=== PATIENT | male | born 1975 | race Caucasian/White ===

== ENCOUNTER 2024-02-19 14:15 | Emergency (ER) | payer MEDICAID, SELFPAY ==
[2024-02-19 14:18] VITALS: BP 155/90; PULSE 65; RESP 16; TEMP 36.5; O2SAT 99
--- NOTE | 2024-02-19 14:29 | ED.GENADUL_ITS ---
Discharge Plan Disposition Patient Disposition: Home Condition: Good Discharge Details Chief Complaint: RX Refill Clinical Impression: Methadone use Primary Care Provider: None,None ED Provider: Aroldo Roblero Home Meds and New Rx's Prescriptions: No Action methadone 10 MG/ML concentrate 190 mg PO DAILY Patient Comments: Pt states he takes 190 mg daily 02/19/24 gabapentin 600 MG tablet 1,200 mg PO TID sertraline 100 MG tablet 200 mg PO DAILY clonidine HCl [Catapres] 0.2 MG tablet 0.2 mg PO TID clindamycin HCl 300 MG capsule 300 mg PO QID 10 Days 0RF methylphenidate HCl [Concerta] 36 MG tablet extended release 24hr 2 tab PO DAILY buprenorphine-naloxone [Suboxone] 1 EACH film 16 mg PO DAILY Discharge Instructions Instructions: Methadone Additional Instructions: Please follow-up with your clinic for your continued methadone dosing. If you notice any worsening of your symptoms, or any new symptoms such as vomiting, diarrhea, fever, chills, shortness of breath, chest pain, numbness, weakness, or fainting , please return immediately to the emergency department for reevaluati on. Please follow up with your primary care provider as soon as possible for reassessment and reevaluation. As always, it was a pleasure participating in your medical care today. HPI General Date/Time Provider Initiated Documentation: 02/19/24 14:24 . HPI Narrative: 48-year-old male with past medical history of substance abuse, hepatitis C, who is currently 50 days in remission on methadone 190 mg daily, presents today for evaluation of dosing. Unfortunately he has been traveling and was not able to come in for his dose today. We are contacted by the methadone clinic and they requested that we provide him the opportunity to dose today. They did confirm his dose for 190 mg. Patient denies any other complaints. He states that he has not been using. No other modifying factors. Related Data Home Medications ?Medication ?Instructions ?Recorded ?Confirmed methadone 10 mg/mL oral concentrate 190 mg PO DAILY 11/11/14 02/19/24 clindamycin HCl 300 mg capsule 300 mg PO QID 10 days 07/18/16 02/19/24 clonidine HCl 0.2 mg tablet 0.2 mg PO TID 07/18/16 02/19/24 (Catapres) gabapentin 600 mg tablet 1,200 mg PO TID 07/18/16 02/19/24 sertraline 100 mg tablet 200 mg PO DAILY 07/18/16 02/19/24 buprenorphine 8 mg-naloxone 2 mg 16 mg PO DAILY 01/16/17 02/19/24 sublingual film (Suboxone) methylphenidate HCl 36 mg 2 tab PO DAILY 01/16/17 02/19/24 tablet,extended release 24 hr (Concerta) Previous Rx's ?Medication ?Instructions ?Recorded clindamycin HCl 300 mg capsule 300 mg PO QID 10 days 07/18/16 Allergies Allergy/AdvReac Type Severity Reaction Status Date / Time No Known Allergies Allergy Unverified 02/19/24 14:21 General Stated Complaint: RX Refill SHAUNA: 4 Review of Systems All systems reviewed & are unremarkable except as noted in HPI and below Exam Narrative Exam Narrative: 1.Const: Well-nourished, Well-developed, appearing stated age 2.Eyes: PERRL, no conjunctival injection, and symmetrical lids. 3.ENT: Atraumatic external nose and ears. Moist MM. Neck: Symmetric, trachea midline, No thyromegaly. 4.CVS: +S1/S2, Peripheral pulses 2+ and equal in all extremities. Brisk capillary refill in all extremities. 5.RESP: Unlabored respiratory effort. Clear to auscultation bilaterally. No wheezes rales or rhonchi 6.GI: Soft, Nontender/Nondistended, No hepatosplenomegaly. No guarding or rebound. 7.MSK: Normocephalic/Atraumatic, Extremities w/o deformity or ttp No cyanosis or clubbing, Normal movement of all extremities 8.Skin: Warm, Dry. No rashes or lesions. 9.Neuro: tube room cashier II-XII grossly intact. Sensation grossly intact, no focal neurologic deficits. 10.Psych: (AAO) x3. Appropriate mood and affect Course Vital Signs Vital signs: Vital Signs Temperature 36.5 C 02/19/24 14:18 Pulse 65 02/19/24 14:18 Respiratory Rate 16 02/19/24 14:18 Blood Pressure 155/90 H 02/19/24 14:18 Pulse Oximetry 99 02/19/24 14:18 Temperature 36.5 C 02/19/24 14:18 Temperature Source Oral 02/19/24 14:18 Pulse 65 02/19/24 14:18 Respiratory Rate 16 02/19/24 14:18 Respiratory Effort Normal, Non-Labored 02/19/24 14:21 Blood Pressure 155/90 H 02/19/24 14:18 Blood Pressure Position Sitting 02/19/24 14:18 Pulse Oximetry 99 02/19/24 14:18 Oxygen Delivery Method Room Air 02/19/24 14:18 Oxygen Flow Rate 0 02/19/24 14:18 Pain Level 0 02/19/24 14:18 Medical Decision Making 48-year-old male with past medical history of substance abuse, hepatitis C, who is currently 50 days in remission on methadone 190 mg daily, presents today for evaluation of dosing. Unfortunately he has been traveling and was not able to come in for his dose today. We are contacted by the methadone clinic and they requested that we provide him the opportunity to dose today. They did confirm his dose for 190 mg. Patient denies any other complaints. He states that he has not been using. No other modifying factors. Patient appears well, physical exam demonstrates a stable appearing male. Will give his methadone dose. Recommend continued outpatient follow-up. I have extensively reviewed the treatment plan and discharge instructions with the patient. I have addressed all patient concerns at this time. The patient was made aware of what symptoms to monitor for that would warrant a return to the emergency department. Discussed the plan with the patient, they demonstrate verbal understanding and agreement with our assessment and plan at this time. The documentation in this chart was dictated using [employer] dictation software. Please excuse any dictation errors. Quality:SDOH Health Related Social Needs: No Data to Display PFSH All Active Problems (Updated 02/19/24 @ 14:33 by Aroldo Roblero DO) Methadone use (Acute) Smoker (Chronic) Restless leg syndrome (Chronic) Urinary retention (Chronic) ADD (attention deficit disorder) (Chronic) Hepatitis C (Chronic) Polydrug abuse, continuous (Acute 07/22/14) Family History Mother Essential hypertension Father No problems noted. Brother Diabetes Essential hypertension Social History Smoking/Tobacco Use Status: Current every day Smoking risk assessment performed?: Yes Alcohol Intake: never Drug use: Daily Substance use type: does not use Do you feel safe at home: Yes Do you feel safe in your relationship?: Yes
[2024-02-19] MEDS: Methadone Liquid 10 MG/ML 190 MG PO (14:44)
--- OUTSIDE RECORDS SUMMARY | 2024-02-19 14:48 | XMS_ITS | Encounter Summary ---
[place] [address] Care Team Providers Care Scale Technician Name Role Phone Jenifer Velásquez APRN Primary Care Provider Encounter Details Date Type Department Care Team (Late st Contact Info) Description 11/25/2014 [place] [phone] Jenifer Velásquez APRN [address] [place], [place] [id number] Social History Tobacco Use Types Packs/Day Years Used Date Smoking Tobacco: Never Assessed Sex and Gender Information Value Date Recorded Sex Assigned at Not on file Gender Identity Not on file Sexual Orientation Not on file documented as of this encounter Plan of Treatment Not on file documented as of this encounter Procedures Procedure Name Priority Date/Time Associated Diagnosis Comments FILM LIBRARY STORAGE ONLY MR SPINE Routine 11/25/2014 2:44 PM EDT documented in this encounter Results * Film Library- Storage only MR Spine (11/25/2014 2:44 PM EDT) Anatomical Region Laterality Modality Other 11/25/2014 2:44 PM EDT Narrative 11/25/2014 2:49 PM EDT This is a Non-reportable exam Procedure Note IVAN, UNSIGNED REPORT - 11/25/2014 This is a Non-reportable exam Jenifer Velásquez APRN [facility] FILM LIBRARY ORD ERABLES documented in this encounter Visit Diagnoses Not on filedocumented in this encounter Care Teams Scale Technician Relationship Specialty Start Date End Date Jenifer Velásquez APRN PCP - General 02/09/10 12/07/16 documented as of this encounter
--- OUTSIDE RECORDS SUMMARY | 2024-02-19 14:48 | XMS_ITS | Encounter Summary ---
Author Organization [facility] Address [facility] [place] [address] Care Team Providers Care Snapper On Name Role Phone Unknown Primary Care Provider Unavailabl e Encounter Details Date Type Department Care Team (Late st Contact Info) Description 10/25/2023 11:30 AM EDT Ancillary Procedure Radiology Library at [facility] [place] [phone] Filiberto Grider MD [facility] [place] [address] Social History Tobacco Use Types Packs/Day Years Used Date Smoking Tobacco: Every Day Cigarettes 1 30 Smokeless Tobacco: Current Chew Alcohol Use Standard Drinks/Week Comments Yes 2 (1 standard drink = 0.6 oz pur e alcohol) Sex and Gender Information Value Date Recorded Sex Assigned at Not on file Gender Identity Not on file Sexual Orientation Not on file documented as of this encounter Plan of Treatment Not on file documented as of this encounter Procedures Procedure Name Priority Date/Time Associated Diagnosis Comments FILM LIBRARY STORAGE ONLY CT SPINE Routine 10/25/2023 11:26 AM EDT documented in this encounter Results * Film Library- Storage Only CT Spine (10/25/2023 11:26 AM EDT) 10/25/2023 11:2 5 AM EDT Narrative RAD - 10/25/2023 11:26 AM EDT This exam is auto-finalizing. It's purpose is for storage only. De Los Santos A Echt MD IMG FILM LIBRARY ORD ERABLES [place], [place] documented in this encounter Visit Diagnoses Not on filedocumented in this encounter Care Teams Snapper On Relationship Specialty Start Date End Date Unknown None PCP - General 09/22/20 documented as of this encounter
--- OUTSIDE RECORDS SUMMARY | 2024-02-19 14:48 | XMS_ITS | Encounter Summary ---
Author Organization [facility] Address [facility] [place] [address] Care Team Providers Care Human Performance Consultant Name Role Phone Aguila Patton Primary Care Provider [phone] Encounter Details Date Type Department Care Team (Late st Contact Info) Description 02/27/2017 Telephone [place] [phone] Sonam Esqueda, RN [facility] [place] [address] Social History Tobacco Use Types Packs/Day Years [...] on file documented as of this encounter Miscellaneous Notes * Telephone Encounter - Sonam Esqueda, RN - 02/27/2017 4:17 PM EST Phone call to Mr. Li to discuss issues related to his appt with Dr. Riley next week for eval of HCV infection. [facility] Will [facility] upcoming appt. (03/06-- Dr. Riley and [facility]) Left message with her to have him call when he is settled back at home and we will work on getting him scheduled. documented in this encounter Plan of Treatment Not on file documented as of this encounter Visit Diagnoses Not on filedocumented in this encounter Care Teams Human Performance Consultant Relationship Specialty Start Date End Date Aguila Patton PA [address] [place] [address] PCP - General General Internal Medicine 12/08/1609/21 documented as of this encounter
--- OUTSIDE RECORDS SUMMARY | 2024-02-19 14:48 | XMS_ITS | Encounter Summary ---
Author Organization [facility] Address [facility] [place] [address] Care Team Providers Care Rice Cleaning Machine Tender Name Role Phone Unknown Primary Care Provider Unavailabl e Encounter Details Date Type Department Care Team (Late st Contact Info) Description 10/25/2023 11:35 AM EDT Ancillary Procedure Radiology Library at [facility] [place] [phone] Filiberto Grider MD [facility] [place] [place] [address] Social History Tobacco Use Types Packs/Day Years [...] Diagnosis Comments FILM LIBRARY STORAGE ONLY CT PELVIS Routine 10/25/2023 11:26 AM EDT documented in this encounter Results * Film Library- Storage Only CT Pelvis (10/25/2023 11:26 AM EDT) 10/25/2023 11:2 6 AM EDT Narrative RAD - 10/25/2023 11:26 AM EDT This exam is auto-finalizing. It's purpose is for storage only. De Los Santos A Echt MD IMG FILM LIBRARY ORD ERABLES [place], [place] documented in this encounter Visit Diagnoses Not on filedocumented in this encounter Care Teams Rice Cleaning Machine Tender Relationship Specialty Start Date End Date Unknown None PCP - General 09/22/20 documented as of this encounter
--- OUTSIDE RECORDS SUMMARY | 2024-02-19 14:48 | XMS_ITS | Encounter Summary ---
Author Organization [facility] Address [facility] [place] [address] Care Team Providers Care Social Work Professor Name Role Phone Unknown Primary Care Provider Unavailabl e Encounter Details Date Type Department Care Team (Late st Contact Info) Description 10/25/2023 Interpretation Only Radiology Library at [facility] [place] [phone] Filiberto Grider MD [facility] [place] [address] Social History Tobacco Use Types Packs/Day Years [...] Spine (10/25/2023 11:26 AM EDT) 10/25/2023 11:2 6 AM EDT Narrative RAD - 10/25/2023 11:26 AM EDT This exam is auto-finalizing. It's purpose is for storage only. Filiberto Grider MD IMG FILM LIBRARY ORD ERABLES [place], [place] documented in this encounter Visit Diagnoses Not on filedocumented in this encounter Care Teams Social Work Professor Relationship Specialty Start Date End Date Unknown None PCP - General 09/22/20 documented as of this encounter
--- OUTSIDE RECORDS SUMMARY | 2024-02-19 14:48 | XMS_ITS | Referral Summary ---
Author Organization [facility] Address [address] [place] [address] Care Team Providers Care Magneto Repairer Name Role Phone Unknown, Provider Primary Care Provider Unava ilable Social History Tobacco Use Types Packs/Day Years Used Date Smoking Tobacco: Never Assessed Sex and Gender Information Value Date Recorded Sex Assigned at Not on file Legal Sex Male 18:09 EST Gender Identity Not on file Sexual Orientation Not on file Plan of Treatment Not on file Care Teams Magneto Repairer Relationship Specialty Start Date End Date Unknown, Provider, PCP - General 12/19/14
--- OUTSIDE RECORDS SUMMARY | 2024-02-19 14:48 | XMS_ITS | Encounter Summary ---
Author Organization [employer] Address [address] [place] [address] Care Team Providers Care Forest Botany Instructor Name Role Phone Per Patient, No Pcp MD Primary Care Provider Cathryn vailable Reason for Visit * Reason Comments Wound Infection Encounter Details Date Type Department Care Team (Late st Contact Info) Description 09/22/2023 6:13 PM CDT - 09/22/2023 7:17 PM CDT Emergency [address] [phone] Cellulitis of right leg (Primary Dx) Discharge Disposition: 10 Eloped Social History Tobacco Use Types Packs/Day Years Used Date Smoking Tobacco: Never Assessed Sex and Gender Information Value Date Recorded Sex Assigned at Not on file Gender Identity Not on file Sexual Orientation Not on file documented as of this encounter Last Filed Vital Signs Vital Sign Reading Time Taken Comments Blood Pressure 153/96 09/22/2023 2:21 PM CDT Pulse 113 09/22/2023 2:21 PM CDT Temperature 36.4 ??C (97.6 ??F) 09/22/2023 2:21 PM CD T Respiratory Rate 19 09/22/2023 2:21 PM CDT Oxygen Saturation 100% 09/22/2023 2:21 PM CDT Inhaled Oxygen Concentration - - Weight 79.4 kg (175 lb) 09/22/2023 2:21 PM CDT Height 185.4 cm (6' 1) 09/22/2023 2:21 PM CDT Body Mass Index 23.09 09/22/2023 2:21 PM CDT documented in this encounter ED Notes * Jenniffer Urbano - 09/22/2023 5:57 PM CDT Called 3 times for room assignment, no answer. UTL Jenniffer Urbano 09/22/23 1757 * Shana Villalta RN - 09/22/2023 2:29 PM CDT PT C/O R CALF WOUND INFECTION WHICH HAS BEEN GOING ON FOR SEVERAL WEEKS WELL AN ABNORMALITY IN HIS SPINE CAUSING HIM TO HAVE SOB WHICH HAS RECENTLY WORSENED documented in this encounter Miscellaneous Notes * ED PIT NOTE - Chuy Nesbitt PA-C - 09/22/2023 2:24 PM CDT Emergency Department Note 09/22/2023 2:24 PM CDT PCP: No primary care provider on file. Subjective History Nursing Notes Stated Complaint: SOB/open wound Chief Complaint: SOB/open wound Reviewed Nursing Documentation: Yes Coded Allergies: Patient has no known allergies. General Time Seen by Provider: 1425 MSE Initiation Time: 1425 I have greeted and performed a focused rapid initial assessment of this patient. Patient examined by provider in triage, appropriate labs/imaging (if indicated) and medications (ifindicated) have been ordered from triage. A comprehensive ED assessment and evaluation of the patient, analysis of all test results, and completion of the medical decision-making process will be conducted by additional ED providers and disposition once roomed in ER bed. 47-year-old male presents for evaluation of shortness of breath. Patient reports he has a lump on his back ongoing for four months but has worsened. He reports he was seen twice here for this same issue. Patient also has an open wound located on on the right calf. Reports he is an active heroin user. The history is provided by the patient. No segmental paving supervisor was used. Patient is awake, alert, oriented x3, in no distress. Non toxic appearing. Head: Atraumatic, normocephalic, Pulmonary: No acute respiratory distress, airway patent. Lung mello clear to auscultation. Musculoskeletal: Noted thoracic spine abnormality. Skin: Wound noted to right calf region MSE complete; Work-up in progress; Patient requires acute bed. Clinical course pending. No past medical history on file. No past surgical history on file. No family history on file. Social History Socioeconomic History Marital status: Single Prior to Admission medications Not on File ED Triage Vitals [09/22/23 1421] Enc Vitals Group BP Pulse Resp Temp Temp src SpO2 Weight 79.4 kg (175 lb) Height 1.854 m (6' 1) Head Circumference Peak Flow Pain Score Pain Loc Pain Edu? Excl. in GC? ED Course I, Gregoria Raines, medically scribed in the presence of Chuy YORK. This document has been reviewed. This documentation, recorded by the scribe, accurately reflects the work and decisions I personally performed, JAYLEN Rain. MSE completed at D/T. Chuy Nesbitt PA-C 09/22/2023 This note was dictated with the use of [employer] software and is subject to voice recognition errors. Message for Patient/Family: These medical records are being shared as per [facility] regulations to improve transparency and understanding. However, these notes have medical terminology and technical language to communicate with otherproviders, insurance companies, and the billing department. Associated attestation - Maritza Alexander DO - 09/23/2023 7:47 AM CDT If I was consulted on this patient, please see my own separate ED note on the patient encounter. I am required to administratively sign this document. I was available for consultation for this patient if they were present in the ED during the hours of my scheduled shift, however I was not consulted on this patient. I was not made aware of this patient's presence in the Emergency Department during my shift. I did not evaluate the patient, did not have a doctor-patient relationship with the patient, did not perform any critical care, did not review the patient record & documentation, or participate in any medical decision making or disposition decisions unless I am specifically named in the chart as having consulted on the patient. The KYLEE functioned independently in this patient's ca re. I am unable to determine appropriateness of management without obtaining a personal history andexam which I was not asked to do. documented in this encounter Plan of Treatment Not on file documented as of this encounter Procedures Procedure Name Priority Date/Time Associated Diagnosis Comments XR CHEST XRAY 1 VW STAT 09/22/2023 3: 43 PM CDT XR THORACIC SPINE 3 VIEWS STAT 09/22/2023 3:43 PM CDT COMPLETE BLOOD COUNT WITH DIFFERENTIAL STAT 09/22/2023 2:41 PM CDT BASIC METABOLIC PANEL STAT 09/22/2023 2:41 PM CDT documented in this encounter Results * X-ray t spine 3 views (09/22/2023 3:43 PM CDT) Anatomical Region Laterality Modality C-spine, T-spine, L-spine, Chest Digital Radiography Impressions 09/22/2023 4:29 PM CDT T11 fracture with significant kyphotic angulation of the thoracolumbar spine. Electronically signed by: ??Eric Arechiga MD ??09/22/2023 04:29 PM CDT RP [facility] 09/22/2023 4:29 PM CDT EXAMINATION: XR THORACIC SPINE 3 VIEWS CLINICAL INDICATION: Male, 47 years old. Worsening upper back pain. COMPARISON: XR Chest 09/22/2023, XR Chest 11/12/2022. FINDINGS: Thoracic : 3 views. Osseous Structures: Significant kyphotic angulation of the thoracic spine secondary to a compression fracture with near vertebral plana at the T11 level, uncertain chronicity. Lower cervical ACDF hardware. Bone Mineralization: Osteopenia. Soft Tissues: Normal appearance of the visualized cardiac silhouette. Procedure Note Eric Arechiga MD - 09/22/2023 EXAMINATION: XR THORACIC SPINE 3 VIEWS CLINICAL INDICATION: Male, 47 years old. Worsening upper back pain. COMPARISON: XR Chest 09/22/2023, XR Chest 11/12/2022. FINDINGS: Thoracic : 3 views. Osseous Structures: Significant kyphotic angulation of the thoracic spinesecondary to a compression fracture with near vertebral plana at the [id number], uncertain chronicity. Lower cervical ACDF hardware. Bone Mineralization: Osteopenia. Soft Tissues: Normal appearance of the visualized cardiac silhouette. IMPRESSION: T11 fracture with significant kyphotic angulation of the thoracolumbarspine. Electronically signed by: Eric Arechiga MD 09/22/2023 04:29 PM CDT RPWorkstation: [id number] Chuy Laz SMALL IMG DIAGNOSTIC IMAG ING ORDERABLES * XR Chest X-ray 1v (09/22/2023 3:43 PM CDT) Anatomical Region Laterality Modality Chest Digital Radiogra phy BODY FLUID SPECIMEN OBTAINED VIA CHEST TUBE / Unknown Impressions 09/22/2023 3:51 PM CDT No acute infiltrate. Findings suspicious for a 13 mm nodule at the right midlung. CT scan is suggested for further evaluation. Electronically signed by: ??Peter Allen MD ??09/22/2023 03:51 PM CDT RP Narrative 09/22/2023 3:51 PM CDT EXAMINATION: ONE VIEW CHEST XR CLINICAL INDICATION: Male, 47 years old. short of breath. TECHNIQUE: 1 View, AP supine, X-ray of the chest was performed. [id number]. COMPARISON: November 12, 2022 FINDINGS: The cardiac size is within normal limits. The left lung is free of infiltrate and well aerated. The right lung, there is a 13 mm nodule which was not present on the prior examination. CT scan of the chest is suggested for further evaluation. Procedure Note Peter Allen MD - 09/22/2023 EXAMINATION: ONE VIEW CHEST XR CLINICAL INDICATION: Male, 47 years old. short of breath. TECHNIQUE: 1 View, AP supine, X-ray of the chest was performed.[id number]. COMPARISON: November 12, 2022 FINDINGS: The cardiac size is within normal limits. The left lung is free of infiltrate and well aerated. The right lung, there is a 13 mm nodule which was not present on the priorexamination. CT scan of the chest is suggested for further evaluation. IMPRESSION: No acute infiltrate. Findings suspicious for a 13 mm nodule at the right midlung. CT scan issuggested for further evaluation. Electronically signed by: Peter Allen MD 09/22/2023 03:51 PM CDT RPWorkstation: [id number] Chuy Nesbitt PA-C IMG DIAGNOSTIC IMAG ING ORDERABLES * (ABNORMAL) Basic Metabolic Panel (09/22/2023 2:41 PM CDT) Glucose 98 70 - 105 mg/dL 09/22/2023 3:20 PM CDT [facility] BUN 27(H) 9 - 21 mg/dL 09/22/2023 3:20 PM T [facility] Creatinine 1.10 0.70 - 1.30 mg/dL 09/22/2023 3:20 PM T [facility] Est Glomerular Filtration Rate 82.81 >=60.00 mL/min/1.7 3m2 09/22/2023 3:20 PM T [facility] Comment: An Estimated GFR result less than or equal to 60 mL/min/1.73 sqm is indicative of renal disease. Effective 11/16/2021 eGFR CKD-EP is now calculated using the [employer] recommended 2020 calculation which no longer includes a race dependency. EGFR calculation is based on sex assigned at . If unavailable, legal sex is used. Please consider patient history for clinical decision making. Sodium 141 136 - 145 mmol/L 09/22/2023 3:20 PM T [facility] Potassium 3.1(L) 3.5 - 5.1 mmol/L 09/22/2023 3:20 PM [facility] Chloride 103 98 - 107 mmol/L 09/22/2023 3:20 PM [facility] Carbon Dioxide 26 22 - 29 mmol/L 09/22/2023 3:20 PM [facility] Anion Gap 12 6 - 18 mmol/L 09/22/2023 3:20 PM [facility] BUN/Creatinine Ratio 25 mg/dL 09/22/2023 3:20 PM CDT [facility] Calcium 9.6 8.4 - 10.2 mg/dL 09/22/2023 3:20 PM CDT [facility] Blood VENOUS BLOOD SPECIMEN / Unknown Venipuncture / Unknown 09/22/2023 2:41 PM CDT 09/22/2023 2:41 PM CDT Chuy Nesbitt PA-C LAB BLOOD ORDERABLE S [facility] [address] [place] [address] * (ABNORMAL) Complete Blood Count with Differential (09/22/2023 2:41 PM CDT) WBC 10.0 4.8 - 10.8 10*3/uL 09/22/2023 2:44 PM CDT [facility] Red Cell Count 4.49(L) 4.70 - 6.10 10*6/uL 09/22/2023 2:44 PM CDT [facility] Hemoglobin 10.7(L) 14.0 - 18.0 g/dL 09/22/2023 2:44 PM T [facility] Hematocrit 36.0(L) 42.0 - 52.0 % 09/22/2023 2:44 PM CDT [facility] Mean Corpuscular Hgb 23.8(L) 26.0 - 34.0 pg 09/22/2023 2:44 PM CDT [facility] Mean Corpuscular Hgb Conc 29.7(L) 31.0 - 37.0 g/dL 09/22/2023 2:44 PM CDT [facility] Red Cell Distribution Width 17.2(H) 11.2 - 13.4 % 09/22/2023 2:44 PM CDT [facility] Platelet Count 405(H) 130 - 400 10*3/uL 09/22/2023 2:44 PM [facility] Mean Platelet Volume 8.1 7.4 - 10.4 fL 09/22/2023 2:44 PM [facility] Neutrophils Absolute 7.11 1.90 - 8.00 10*3/uL 09/22/2023 2:44 PM [facility] Lymphocytes # 1.91 0.90 - 4.50 10*3/uL 09/22/2023 2:44 PM [facility] Monocytes # 0.76 0.15 - 1.10 10*3/uL 09/22/2023 2:44 PM [facility] Neutrophils % 71.0 40.0 - 78.0 % 09/22/2023 2:44 PM [facility] Immature Granulocyte % 0.3 0.0 - 5.0 % 09/22/2023 2:44 PM [facility] Lymphocytes % 19.1 15.0 - 48.0 % 09/22/2023 2:44 PM [facility] Monocytes % 7.6 0.0 - 12.0 % 09/22/2023 2:44 PM [facility] Eosinophils % 1.3 0.0 - 7.0 % 09/22/2023 2:44 PM [facility] Basophils % 0.7 0.0 - 3.0 % 09/22/2023 2:44 PM [facility] Nucleated RBC % 0.0 0.0 - 0.0 % 09/22/2023 2:44 PM [facility] Immature Granulocyte # 0.03 0.00 - 0.40 10*3/uL 09/22/2023 2:44 PM [facility] Eosinophils # 0.13 0.00 - 1.01 10*3/uL 09/22/2023 2:44 PM CDT [facility] Basophils # 0.07 0.00 - 0.30 10*3/uL 09/22/2023 2:44 PM CDT [facility] Nucleated RBC # 0.00 0.00 - 0.01 10*3/uL 09/22/2023 2:44 PM CDT [facility] Mean Corpuscular Volume 80.2 80.0 - 94.0 fL 09/22/2023 2:44 PM CDT [facility] Immature Plt Fraction 09/22/2023 2:44 PM CDT [facility] Blood VENOUS BLOOD SPECIMEN / Unknown Venipuncture / Unknown 09/22/2023 2:41 PM CDT 09/22/2023 2:41 PM CDT Chuy Nesbitt PA-C LAB BLOOD ORDERABLE S [facility] [address] [phone] documented in this encounter Visit Diagnoses Diagnosis Cellulitis of right leg- Primary documented in this encounter Additional Health Concerns Infection Onset Date Last Indicated Resolved Time ESBL (Extended Spectrum Beta-Lactamase) 11/16/2022 05/11/2023 09/25/2023 11:26 AM CDT documented as of this encounter Care Teams Forest Botany Instructor Relationship Specialty Start Date End Date Per Patient, No Pcp, MD PCP - General Family Medicine 09/22/23 documented as of this encounter
--- OUTSIDE RECORDS SUMMARY | 2024-02-19 14:48 | XMS_ITS | Encounter Summary ---
Author Organization [facility] Address [facility] [place] [address] Care Team Providers Care Conventions Assistant Name Role Phone Unknown Primary Care Provider Unavailabl e Encounter Details Date Type Department Care Team (Late st Contact Info) Description 10/25/2023 Interpretation Only Radiology Library at [facility] [place] [phone] Filiberto Grider MD [facility] [place] [address] Social History Tobacco Use Types Packs/Day Years [...] Diagnosis Comments FILM LIBRARY STORAGE ONLY CT CHEST Routine 10/25/2023 11:26 AM EDT documented in this encounter Results * Film Library- Storage Only CT Chest (10/25/2023 11:26 AM EDT) 10/25/2023 11:2 6 AM EDT Narrative RAD - 10/25/2023 11:26 AM EDT This exam is auto-finalizing. It's purpose is for storage only. Filiberto Grider MD IMG FILM LIBRARY ORD ERABLES [place], [place] documented in this encounter Visit Diagnoses Not on filedocumented in this encounter Care Teams Conventions Assistant Relationship Specialty Start Date End Date Unknown None PCP - General 09/22/20 documented as of this encounter
--- OUTSIDE RECORDS SUMMARY | 2024-02-19 14:48 | XMS_ITS | Encounter Summary ---
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 with me and I agreewith them as documented. Issues addressed: After discussion with resident, undersigned individually and privately met with patient (his parents were able to leave the room). He denied any suicidal or homicidal ideations, stated that he does not need psychiatric help. He was not willing to speak with me further, but understanding that the psychiatric consult service would continue to follow with him. Collateral information was provided to the resident physician as per report above. Plan: ?? After considering the above information and collateral information provided, proceed with IEA. ?? Patient to remain on consult service. I certify that the patient requires: [X] inpatient care for psychiatric treatment, that could be reasonably expected to improve the patient's condition and/or diagnostic study. * Plan of Care - Rupert Acuña V, RN - 01/07/2017 5:51 PM EDT Problem: Suicide Risk (Adult) Goal: Identify Related Risk Factors and Signs and Symptoms Related risk factors and signs and symptoms are identified upon initiation of Human Response Clinical Practice Guideline (CPG) Outcome: Ongoing (Interventions Implemented as Appropriate) OUTCOME EVALUATION NOTE: OUTCOME SUMMARY: At change of shift in the AM but woke up from sedation but unable to follow commands, team to bedside, propofol increased, fent bolus given and precedex started. Pt then dropped his pressures MAPs inthe low 50's. Team aware and 2 1L boluses given with positive effect. Pts propofol weaned off and precedex remained on. Weaned precedex down throughout the day in an attempt to have pt follow commands enough to extubate. Pt able to follow commands and extubated at 1730 with team at bedside. Pt immediately agitated and said he wants to go home. Pt's precedex increased and put in 4 point restraints. Pt currently on RA with sitter at bedside. PLAN MOVING FORWARD: Monitor pt (suicide precautions), monitor for agitation INDIVIDUALIZED FALL PREVENTION INTERVENTIONS: Patient-specific fall risk factors per assessment: [current deficits]: Lines, drains, agitation, medications Assistance [level of assistance required for transfers and ambulation]: 2 assist Supervision [direct monitoring required during toileting and ADLs]: Room near nurses station, sitter at bedside, frequent visual checks Surveillance [continuous indirect monitoring]: [facility] Patient-specific fall prevention interventions for sensory deficits provided, if applicable: CPG GOAL OUTCOME EVALUATION: * Plan of Care - Meron Chamberlain RN - 01/07/2017 6:44 AM EDT Problem: Patient Care Overview Goal: Plan of Care Review Outcome: Ongoing (Interventions Implemented as Appropriate) 01/07/17 0640 Coping/Psychosocial Plan Of Care Reviewed With patient Plan of Care Review Progress no change OUTCOME EVALUATION NOTE: OUTCOME SUMMARY: Patient admitted to ICU 33 around midnight. Skin C/D/I. Urine cloudy with sediment, provider aware,specimen sent to lab. Temperature low, bear hugger on, temp now WNL. Patients mother called and wasable to provide . She will be in to visit today after finding childcare for patients children who she is watching. Her number is in the chart. Passed SBT. Attempted to pull out ETT when on lower amount of propofol. PLAN MOVING FORWARD: Extubate when clinically appropriate, consult psych/social work CPG GOAL OUTCOME EVALUATION: Problem: Skin Integrity Impairment, Risk/Actual (Adult) Goal: Identify Related Risk Factors and Signs and Symptoms Related risk factors and signs and symptoms are identified upon initiation of Human Response Clinical Practice Guideline (CPG) Outcome: Ongoing (Interventions Implemented as Appropriate) 01/07/17 0640 Skin Integrity Impairment, Risk/Actual Skin Integrity Impairment, Risk/Actual: Related Risk Factors immobility Problem: Suicide Risk (Adult) Goal: Identify Related Risk Factors and Signs and Symptoms Related risk factors and signs and symptoms are identified upon initiation of Human Response Clinical Practice Guideline (CPG) Outcome: Ongoing (Interventions Implemented as Appropriate) 01/07/17 0640 Suicide Risk Suicide Risk: Related Risk Factors co-occurring disorders;mental health diagnosis;multiple stressors;substance use Signs and Symptoms (Suicide Risk) self-injurious behavior;suicidal ideation Problem: Overdose, Ingestion/Inhalants (Adult) Goal: Signs and Symptoms of Listed Potential Problems Will be Absent, Minimized or Managed (Overdose, Ingestion/Inhalants) Signs and symptoms of listed potential problems will be absent, minimized or managed by discharge/transition of care (reference Overdose, Ingestion/Inhalants (Adult) CPG). Outcome: Ongoing (Interventions Implemented as Appropriate) 01/07/17 0640 Overdose, Ingestion/Inhalants Problems Assessed (Overdose) all Problems Present (Overdose) acute cognitive dysfunction;suicide risk Problem: Ventilation, Mechanical Invasive (Adult) Goal: Signs and Symptoms of Listed Potential Problems Will be Absent, Minimized or Managed (Ventilation, Mechanical Invasive) Signs and symptoms of listed potential problems will be absent, minimized or managed by discharge/transition of care (reference Ventilation, Mechanical Invasive (Adult) CPG). Outcome: Ongoing (Interventions Implemented as Appropriate) 01/07/17 0640 Ventilation, Mechanical Invasive Problems Assessed (Mechanical Ventilation, Invasive) all Problems Present (Mechanical Ventilation, Invasive) none documented in this encounter Plan of Treatment Not on file documented as of this encounter Procedures Procedure Name Priority Date/Time Associated Diagnosis Comments HEMOGRAM Routine 01/10/2017 6:55 AM EDT DIFFERENTIAL, AUTOMATED Routine 01/11/20 6:55 AM EDT CBC (WITH DIFF) Routine 01/10/2017 6:55 AM EDT BASIC METABOLIC PANEL Routine 01/10/2017 6:55 AM EDT BASIC METABOLIC PANEL Routine 01/09/2017 5:32 AM EDT HEMOGRAM Routine 01/09/2017 5:00 AM EDT DIFFERENTIAL, AUTOMATED Routine 01/10/20 17 5:00 AM EDT CBC (WITH DIFF) Routine 01/09/2017 5:00 AM EDT POCT GLUCOSE Routine 01/08/2017 4:54 PM EDT POCT GLUCOSE Routine 01/08/2017 1:01 PM EDT POCT GLUCOSE Routine 01/08/2017 8:05 AM EDT EKG 12-LEAD STAT 01/08/2017 7:40 AM EDT Intentional drug overdose, initial encounter POTASSIUM Routine 01/08/2017 6:30 AM EDT MAGNESIUM Routine 01/08/2017 6:30 AM EDT POCT GLUCOSE Routine 01/08/2017 4:05 AM EDT HEMOGRAM Routine 01/08/2017 1:20 AM EDT DIFFERENTIAL, AUTOMATED Routine 01/09/20 17 1:20 AM EDT CBC (WITH DIFF) Routine 01/08/2017 1:20 AM EDT PHOSPHORUS Routine 01/08/2017 1:20 AM EDT MAGNESIUM Routine 01/08/2017 1:20 AM EDT HEPATIC FUNCTION PANEL Routine 7 1:20 AM EDT BASIC METABOLIC PANEL Routine 01/08/2017 1:20 AM EDT POCT GLUCOSE Routine 01/08/2017 12:07 AM EDT POCT GLUCOSE Routine 01/07/2017 7:59 PM EDT EXTUBATE Routine 01/07/2017 5:26 PM EDT POCT GLUCOSE Routine 01/07/2017 4:01 PM EDT POCT GLUCOSE Routine 01/07/2017 11:48 AM EDT BLOOD GAS ARTERIAL POC Routine 7 9:02 AM EDT POCT GLUCOSE Routine 01/07/2017 7:57 AM EDT BETA HYDROXYBUTYRATE Routine 01/07/2017 7:45 AM EDT PHOSPHORUS Routine 01/07/2017 7:45 AM EDT HEPATIC FUNCTION PANEL Routine 7 7:45 AM EDT POCT GLUCOSE Routine 01/07/2017 4:08 AM EDT HEMOGRAM STAT 01/07/2017 2:45 AM EDT DIFFERENTIAL, AUTOMATED STAT 01/08/20 17 2:45 AM EDT CBC (WITH DIFF) STAT 01/07/2017 2:45 AM EDT MAGNESIUM STAT 01/07/2017 2:45 AM EDT BASIC METABOLIC PANEL STAT 01/07/2017 2:45 AM EDT URINALYSIS WITH REFLEX CULTURE Routine 01/07/2017 12:46 AM EDT XR CHEST ONE VIEW STAT 01/07/2017 12: 35 AM EDT POCT GLUCOSE Routine 01/07/2017 12:00 AM EDT documented in this encounter Results * Differential, Automated (01/10/2017 6:55 AM EDT) Neutrophil % 55.3 % [facility] Neutrophil Absolute 2.47 1.70 - 6.10 x10(3)/[facility] Lymph % 29.6 % [facility] Lymphocytes Abs 1.3 0.9 - 3.2 x10(3)/[facility] Monocyte % 9.0 % [facility] Monocyte Abs 0.4 0.3 - 0.9 x10(3)/[facility] Eos % 5.2 % [facility] Eosinophils Abs 0.2 0.0 - 0.4 x10(3)/[facility] Basophil % 0.7 % [facility] Baso Absolute 0.0 0.0 - 0.1 x10(3)/[facility] Immature Gran % 0.20 % [facility] Comment: Immature granulocytes(IG's)percentage and absolute count will include metamyelocytes, myelocytes, and promyelocytes. Blood smears from CBCs yielding IG's will be scanned manually for concordance. If this scan disagrees with the automated IG or if promyelocytes are noted, a manual differential will be performed. Immature Gran Absolute 0.01 0.00 - 0.04 x10(3)/[facility] Blood specimen (specimen) 01/10/2017 6:55 AM EDT 01/10/2017 7:05 AM EDT Narrative Resulting Agency Comment Spec In Lab Bay Vanessa MD HEMATOLOGY ORDERABLE S [facility] [place] [place] [address] * (ABNORMAL) Hemogram (01/10/2017 6:55 AM EDT) White Blood Cell 4.5 4.0 - 9.5 x10(3)/ L [facility] Red Blood Cell 4.30(L) 4.58 - 5.54 x10(6)/ L [facility] Hemoglobin 12.8(L) 13.7 - 16.5 gm/dL [facility] Hematocrit 37.1(L) 40.5 - 48.5 % [facility] Mean Cell Volume 86.3 82.9 - 93.1 fL [facility] Mean Cell Hemoglobin 29.8 27.5 - 32.1 pg [facility] Mean Cell Hemoglobin Concentration 34.5 32.0 - 35.7 gm/dL [facility] Platelet 157 145 - 357 x10(3)/mc L [facility] RDW Standard Deviation 38.9 36.0 - 45.0 [facility] RDW coefficient of variation 12.3 11.4 - 13.8 % [facility] Mean Platelet Volume 9.9 7.6 - 12.9 [facility] NRBC% auto 0.0 % [facility] NRBC Absolute 0.000 0.000 - 0.000 x10(3)/mc L [facility] Blood specimen (specimen) 01/10/2017 6:55 AM EDT 01/10/2017 7:05 AM EDT Narrative Resulting Agency Comment Spec In Lab Bay Vanessa MD HEMATOLOGY ORDERABLE S [facility] [place] [place] [address] * (ABNORMAL) Basic Metabolic Panel (non-fasting) (01/10/2017 6:55 AM EDT) Glucose 81 65 - 199 mg/dL [facility] Comment:Diabetes: >=200 mg/d L plus symptoms Blood Urea Nitrogen 11 10 - 20 mg/dL [facility] Creatinine 0.73(L) 0.80 - 1.50 mg/dL [facility] Sodium 141 135 - 145 mmol/L [facility] Potassium 3.8 3.5 - 5.0 mmol/L [facility] Comment: Please note: ??Patients with WBC >100,000 may have falsely elevated Potassium levels. ??For accurate Potassium quantification in these patients send serum separator tube (gold top) for subsequent determinations. ??Contact the Clinical Chemistry Laboratory if there are any questions. Chloride 101 98 - 107 mmol/L [facility] Carbon Dioxide 28 22 - 31 mmol/L [facility] Anion Gap 12 5 - 15 mmol/L [facility] Calcium 8.8 8.5 - 10.5 mg/dL [facility] Est Glomerular Filtration Rate >60 >=60 [facility] Comment: The reported eGFR should be multiplied by 1.2 for patients. The MDRD is not an appropriate measure of renal function for patients with body mass extremes or in patients with acute kidney failure. http://[employer]/DHnkdep http://[employer]/DHMCnkf Blood specimen (specimen) 01/10/2017 6:55 AM EDT 01/10/2017 7:05 AM EDT Narrative Resulting Agency Comment Spec In Lab Bay Vanessa MD CHEMISTRY ORDERABLES [facility] [place] [place] [address] * (ABNORMAL) Basic Metabolic Panel (non-fasting) (01/09/2017 5:32 AM EDT) Glucose 75 65 - 199 mg/dL [facility] Comment:Diabetes: >=200 mg/d L plus symptoms Blood Urea Nitrogen 8(L) 10 - 20 mg/dL [facility] Creatinine 0.65(L) 0.80 - 1.50 mg/dL [facility] Sodium 144 135 - 145 mmol/L [facility] Potassium 3.8 3.5 - 5.0 mmol/L [facility] Comment: Please note: ??Patients with WBC >100,000 may have falsely elevated Potassium levels. ??For accurate Potassium quantification in these patients send serum separator tube (gold top) for subsequent determinations. ??Contact the Clinical Chemistry Laboratory if there are any questions. Chloride 105 98 - 107 mmol/L [facility] Carbon Dioxide 27 22 - 31 mmol/L [facility] Anion Gap 12 5 - 15 mmol/L [facility] Calcium 8.2(L) 8.5 - 10.5 mg/dL [facility] Comment:result rechecked-[facility] Est Glomerular Filtration Rate >60 >=60 [facility] Comment: The reported eGFR should be multiplied by 1.2 for patients. The MDRD is not an appropriate measure of renal function for patients with body mass extremes or in patients with acute kidney failure. http://[employer]/DHnkdep http://[employer]/DHMCnkf Blood specimen (specimen) 01/09/2017 5:32 AM EDT 01/09/2017 5:32 AM EDT Narrative Resulting Agency Comment Spec In Lab Shirley Hayden [employer] CHEMISTRY ORDERABL ES Performing Organization Address City/State/[facility] Co de Phone Number [facility] [place] [address] * Differential, Automated (01/09/2017 5:00 AM EDT) Neutrophil % 53.5 % [facility] Neutrophil Absolute 2.32 1.70 - 6.10 x10(3)/[facility] Lymph % 32.8 % [facility] Lymphocytes Abs 1.4 0.9 - 3.2 x10(3)/[facility] Monocyte % 9.0 % [facility] Monocyte Abs 0.4 0.3 - 0.9 x10(3)/[facility] Eos % 3.5 % [facility] Eosinophils Abs 0.2 0.0 - 0.4 x10(3)/[facility] Basophil % 0.7 % [facility] Baso Absolute 0.0 0.0 - 0.1 x10(3)/[facility] Immature Gran % 0.50 % [facility] Comment: Immature granulocytes(IG's)percentage and absolute count will include metamyelocytes, myelocytes, and promyelocytes. Blood smears from CBCs yielding IG's will be scanned manually for concordance. If this scan disagrees with the automated IG or if promyelocytes are noted, a manual differential will be performed. Immature Gran Absolute 0.02 0.00 - 0.04 x10(3)/mcL [facility] Blood specimen (specimen) 01/09/2017 5:00 AM EDT 01/09/2017 5:31 AM EDT Narrative Resulting Agency Comment Spec In Lab Shirley Hayden [employer] HEMATOLOGY ORDERAB LES [facility] [place] [place] [address] * (ABNORMAL) Hemogram (01/09/2017 5:00 AM EDT) White Blood Cell 4.3 4.0 - 9.5 x10(3)/[facility] Red Blood Cell 3.92(L) 4.58 - 5.54 x10(6)/[facility] Hemoglobin 12.1(L) 13.7 - 16.5 gm/dL [facility] Hematocrit 34.8(L) 40.5 - 48.5 % [facility] Mean Cell Volume 88.8 82.9 - 93.1 fL [facility] Mean Cell Hemoglobin 30.9 27.5 - 32.1 pg [facility] Mean Cell Hemoglobin Concentration 34.8 32.0 - 35.7 gm/dL [facility] Platelet 161 145 - 357 x10(3)/ L [facility] RDW Standard Deviation 40.5 36.0 - 45.0 [facility] RDW coefficient of variation 12.5 11.4 - 13.8 % [facility] Mean Platelet Volume 10.2 7.6 - 12.9 [facility] NRBC% auto 0.0 % [facility] NRBC Absolute 0.000 0.000 - 0.000 x10(3)/mc L [facility] Blood specimen (specimen) 01/09/2017 5:00 AM EDT 01/09/2017 5:31 AM EDT Narrative Resulting Agency Comment Spec In Lab Shirley L Hayden RENAY HEMATOLOGY ORDERAB LES [facility] [place] [address] * POCT Glucose (01/08/2017 4:54 PM EDT) Glucose, POC 90 65 - 199 mg/dL [facility] Comment: Supplemental ranges: <140 mg/dL before meals <180 mg/dL all other times of the day Blood specimen (specimen) 01/08/2017 4:54 PM EDT 01/08/2017 4:54 PM EDT Fernando Levine MD POINT OF CARE TEST O RDERABLES Performing Organization Address [facility]/ZIP Co de Phone Number [facility] [place] [address] * POCT Glucose (01/08/2017 1:01 PM EDT) Glucose, POC 92 65 - 199 mg/dL [facility] Comment: Supplemental ranges: <140 mg/dL before meals <180 mg/dL all other times of the day Blood specimen (specimen) 01/08/2017 1:01 PM EDT 01/08/2017 1:01 PM EDT Fernando Levine MD POINT OF CARE TEST O RDERABLES Performing Organization Address City/[facility]/ZIP Co de Phone Number [facility] [place] [address] * POCT Glucose (01/08/2017 8:05 AM EDT) Glucose, POC 106 65 - 199 mg/dL [facility] Comment: Supplemental ranges: <140 mg/dL before meals <180 mg/dL all other times of the day Blood specimen (specimen) 01/08/2017 8:05 AM EDT 01/08/2017 8:05 AM EDT Fernando Levine MD POINT OF CARE TEST O RDERABLES Performing Organization Address [facility] de Phone Number [facility] [place] [address] * EKG 12 Lead (01/08/2017 7:40 AM EDT) Ventricular rate 47 BPM MUSE SYSTEM Atrial Rate 47 BPM MUSE SYSTEM P-R Interval 174 ms MUSE SYSTEM QRS Duration 92 ms MUSE SYSTEM Q-T Interval 440 ms MUSE SYSTEM QTC Calculated (Bezet) 389 ms MUSE SYSTEM Calculated P [place] 62 degrees MUSE SYSTEM Calculated R [place] 35 degrees MUSE SYSTEM Calculated T [place] 51 degrees MUSE SYSTEM INTERPRETATION Marked sinus bradycardia with sinus arrhythmia Abnormal ECG No previous ECGs available Confirmed by MD Mell, Abilio Garcia ([id number]) on 01/08/2017 10:02:31 AM MUSE SYSTEM 01/08/2017 7:40 AM EDT 01/08/2017 10:02 AM EDT Butch Perera APRN ECG ORDERABLES Performing Organization Address [facility] Phone Number MUSE SYSTEM * Magnesium (01/08/2017 6:30 AM EDT) Magnesium 0.85 0.69 - 1.07 mmol/L [facility] Blood specimen (specimen) 01/08/2017 6:30 AM EDT 01/08/2017 6:48 AM EDT Narrative Resulting Agency Comment Spec In Lab Fernando Levine MD CHEMISTRY ORDERABLES Performing Organization Address [facility] Co de Phone Number [facility] [place] [address] * Potassium (01/08/2017 6:30 AM EDT) [facility] Potassium 4.1 3.5 - 5.0 mmol/L [facility] Comment: Please note: ??Patients with WBC >100,000 may have falsely elevated Potassium levels. ??For accurate Potassium quantification in these patients send serum separator tube (gold top) for subsequent determinations. ??Contact the Clinical Chemistry Laboratory if there are any questions. Blood specimen (specimen) 01/08/2017 6:30 AM EDT 01/08/2017 6:48 AM EDT Narrative Resulting Agency Comment Spec In Lab Butch Perera APRN CHEMISTRY ORDERA BLES Performing Organization Address [facility] Co de Phone Number [facility] [place] [address] * POCT Glucose (01/08/2017 4:05 AM EDT) [facility] Glucose, POC 108 65 - 199 mg/dL [facility] Comment: Supplemental ranges: <140 mg/dL before meals <180 mg/dL all other times of the day Blood specimen (specimen) 01/08/2017 4:05 AM EDT 01/08/2017 4:05 AM EDT Fernando Levine MD POINT OF CARE TEST O RDERABLES Performing Organization Address [facility] Co de Phone Number [facility] [place] [address] * Differential, Automated (01/08/2017 1:20 AM EDT) [facility] Neutrophil % 61.2 % [facility] Neutrophil Absolute 2.95 1.70 - 6.10 x10(3)/[facility] Lymph % 27.2 % [facility] Lymphocytes Abs 1.3 0.9 - 3.2 x10(3)/[facility] Monocyte % 10.0 % [facility] Monocyte Abs 0.5 0.3 - 0.9 x10(3)/[facility] Eos % 1.0 % [facility] Eosinophils Abs 0.0 0.0 - 0.4 x10(3)/[facility] Basophil % 0.4 % [facility] Baso Absolute 0.0 0.0 - 0.1 x10(3)/[facility] Immature Gran % 0.20 % [facility] Comment: Immature granulocytes(IG's)percentage and absolute count will include metamyelocytes, myelocytes, and promyelocytes. Blood smears from CBCs yielding IG's will be scanned manually for concordance. If this scan disagrees with the automated IG or if promyelocytes are noted, a manual differential will be performed. Immature Gran Absolute 0.01 0.00 - 0.04 x10(3)/[facility] Blood specimen (specimen) 01/08/2017 1:20 AM EDT 01/08/2017 1:27 AM EDT Narrative Resulting Agency Comment Spec In Lab Shirley Hayden [employer] HEMATOLOGY ORDERAB LES [facility] [place] [place] [address] * (ABNORMAL) Hemogram (01/08/2017 1:20 AM EDT) White Blood Cell 4.8 4.0 - 9.5 x10(3)/mc L [facility] Red Blood Cell 3.72(L) 4.58 - 5.54 x10(6)/mc L [facility] Hemoglobin 11.3(L) 13.7 - 16.5 gm/dL [facility] Hematocrit 33.1(L) 40.5 - 48.5 % [facility] Mean Cell Volume 89.0 82.9 - 93.1 fL [facility] Mean Cell Hemoglobin 30.4 27.5 - 32.1 pg [facility] Mean Cell Hemoglobin Concentration 34.1 32.0 - 35.7 gm/dL [facility] Platelet 139(L) 145 - 357 x10(3)/mc L [facility] RDW Standard Deviation 40.7 36.0 - 45.0 [facility] RDW coefficient of variation 12.4 11.4 - 13.8 % [facility] Mean Platelet Volume 9.7 7.6 - 12.9 [facility] NRBC% auto 0.0 % [facility] NRBC Absolute 0.000 0.000 - 0.000 x10(3)/mc L [facility] Blood specimen (specimen) 01/08/2017 1:20 AM EDT 01/08/2017 1:27 AM EDT Narrative Resulting Agency Comment Spec In Lab Shirley Hayden [employer] HEMATOLOGY ORDERAB LES Performing Organization Address City/[facility]/[place] [address] * Phosphorus (01/08/2017 1:20 AM EDT) Phosphorus 2.8 2.5 - 4.5 mg/dL [facility] Blood specimen (specimen) 01/08/2017 1:20 AM EDT 01/08/2017 1:27 AM EDT Narrative Resulting Agency Comment Spec In Lab Shirley Hayden [employer] CHEMISTRY ORDERABL ES Performing Organization Address City/[facility]/ZIP Co de Phone Number [facility] [facility] [place] [address] * (ABNORMAL) Magnesium (01/08/2017 1:20 AM EDT) Magnesium 0.68(L) 0.69 - 1.07 mmol/L [facility] Blood specimen (specimen) 01/08/2017 1:20 AM EDT 01/08/2017 1:27 AM EDT Narrative Resulting Agency Comment Spec In Lab Shirley Hayden [employer]OR CHEMISTRY ORDERABL ES Performing Organization Address [facility]/ZIP Co de Phone Number [facility] [place] [address] * (ABNORMAL) Basic Metabolic Panel (non-fasting) (01/08/2017 1:20 AM EDT) Glucose 102 65 - 199 mg/dL [facility] Comment:Diabetes: >=200 mg/d L plus symptoms Blood Urea Nitrogen 10 10 - 20 mg/dL [facility] Creatinine 0.70(L) 0.80 - 1.50 mg/dL [facility] Sodium 143 135 - 145 mmol/L [facility] Potassium 3.6 3.5 - 5.0 mmol/L [facility] Comment: Please note: ??Patients with WBC >100,000 may have falsely elevated Potassium levels. ??For accurate Potassium quantification in these patients send serum separator tube (gold top) for subsequent determinations. ??Contact the Clinical Chemistry Laboratory if there are any questions. Chloride 108(H) 98 - 107 mmol/L [facility] Carbon Dioxide 24 22 - 31 mmol/L [facility] Anion Gap 11 5 - 15 mmol/L [facility] Calcium 7.4(L) 8.5 - 10.5 mg/dL [facility] Est Glomerular Filtration Rate >60 >=60 [facility] Comment: The reported eGFR should be multiplied by 1.2 for patients. The MDRD is not an appropriate measure of renal function for patients with body mass extremes or in patients with acute kidney failure. http://[employer].NEHP/DHnkdep http://[employer].NEHP/DHMCnkf Blood specimen (specimen) 01/08/2017 1:20 AM EDT 01/08/2017 1:27 AM EDT Narrative Resulting Agency Comment Spec In Lab Shirley Mullins Jackelyn [employer]OR CHEMISTRY ORDERABL ES Performing Organization Address [facility]/ZIP Co de Phone Number [facility] [place] [address] * (ABNORMAL) Hepatic Function Panel (01/08/2017 1:20 AM EDT) [facility] Protein, Total 5.4(L) 6.1 - 8.0 gm/dL [facility] Albumin 3.0(L) 3.2 - 5.2 gm/dL [facility] Aspartate Aminotransferase 29 0 - 39 unit/L [facility] Alanine Aminotransferase 31 0 - 55 unit/L [facility] Alkaline Phosphatase 54 40 - 120 unit/L [facility] Bilirubin, Total 0.8 0.2 - 1.3 mg/dL [facility] Bilirubin, Direct 0.3 0.0 - 0.3 mg/dL [facility] Blood specimen (specimen) 01/08/2017 1:20 AM EDT 01/08/2017 1:27 AM EDT Narrative Resulting Agency Comment Spec In Lab Shirley Hayden APRN CHEMISTRY ORDERABL ES Performing Organization Address [facility]/ZIP Co de Phone Number [facility] [place] [address] * POCT Glucose (01/08/2017 12:07 AM EDT) [facility] Glucose, POC 104 65 - 199 mg/dL [facility] Comment: Supplemental ranges: <140 mg/dL before meals <180 mg/dL all other times of the day Blood specimen (specimen) 01/08/2017 12:07 AM EDT 01/08/2017 12:07 AM EDT Fernando Levine MD POINT OF CARE TEST O RDERABLES [facility] [place] [address] * POCT Glucose (01/07/2017 7:59 PM EDT) [facility] Glucose, POC 88 65 - 199 mg/dL [facility] Comment: Supplemental ranges: <140 mg/dL before meals <180 mg/dL all other times of the day Blood specimen (specimen) 01/07/2017 7:59 PM EDT 01/07/2017 7:59 PM EDT Fernando Levine MD POINT OF CARE TEST O ISABELL Performing Organization Address City/[facility]/ZIP Co de Phone Number [facility] [place] [address] * POCT Glucose (01/07/2017 4:01 PM EDT) Glucose, POC 125 65 - 199 mg/dL [facility] Comment: Supplemental ranges: <140 mg/dL before meals <180 mg/dL all other times of the day Blood specimen (specimen) 01/07/2017 4:01 PM EDT 01/07/2017 4:01 PM EDT Fernando Levine MD POINT OF CARE TEST O ISABELL Performing Organization Address [facility] Co de Phone Number [facility] [place] [address] * POCT Glucose (01/07/2017 11:48 AM EDT) Glucose, POC 100 65 - 199 mg/dL [facility] Comment: Supplemental ranges: <140 mg/dL before meals <180 mg/dL all other times of the day Blood specimen (specimen) 01/07/2017 11:48 AM EDT 01/07/2017 11:48 AM EDT Fernando eLvine MD POINT OF CARE TEST O ISABELL Performing Organization Address [facility] Co de Phone Number [facility] [place] [address] * (ABNORMAL) BLOOD GAS 2 ARTERIAL (01/07/2017 9:02 AM EDT) pH, Arterial 7.36 7.35 - 7.45 [facility] PCO2, Arterial 44 35 - 45 mmHg [facility] PO2, Arterial 68(L) 85 - 104 mmHg [facility] Bicarbonate, Arterial 24.2 20.0 - 26.0 mmol/L [facility] Base Excess, Arterial -1.3 -3.0 - 3.0 mmol/L [facility] Hgb Blood Gas 12.3(L) 13.7 - 16.5 gm/dL [facility] Oxyhemoglobin, Arterial 90.8(L) 94.0 - 97.0 % [facility] Carboxyhemoglob in, Arterial 0.3 % [facility] Comment: Nonsmokers: 0.5-1.5% COHB Smokers: Variable, but usually less than 10% Toxic: 20-30% COHB Lethal: Greater than 60% COHB Methemoglobin, Arterial 0.7 <=1.5 % [facility] Na Whole Blood 139 135 - 145 mmol/L [facility] K Whole Blood 3.7 3.5 - 5.0 mmol/L [facility] Comment: Please note: Patients with WBC >100,000 may have falsely elevated Potassium levels. Contact the Clinical Chemistry Laboratory if there are any questions. ICa Whole Blood 1.16 1.15 - 1.33 mmol/L [facility] Comment: Note: ??Total bilirubin higher than 20 mg/dL may lead to falsely low ionized calcium. CL Whole Blood 106 98 - 107 mmol/L [facility] Gluc Whole Bld 74 65 - 199 mg/dL [facility] Comment:Diabetes: >=200 mg/d L plus symptoms. Lactate WB 0.8 0.5 - 2.2 mmol/L [facility] FIO2 Art 21 % [facility] PF Ratio Art 324 [facility] Blood specimen (specimen) 01/07/2017 9:02 AM EDT 01/07/2017 9:02 AM EDT Fernando Levine MD POINT OF CARE TEST O RDERABLES [facility] [place] [address] * POCT Glucose (01/07/2017 7:57 AM EDT) [facility] Glucose, POC 79 65 - 199 mg/dL [facility] Comment: Supplemental ranges: <140 mg/dL before meals <180 mg/dL all other times of the day Blood specimen (specimen) 01/07/2017 7:57 AM EDT 01/07/2017 7:57 AM EDT Fernando Levine MD POINT OF CARE TEST O RDERABLES Performing Organization Address [facility] Co de Phone Number [facility] [place] [address] * (ABNORMAL) Hepatic Function Panel (01/07/2017 7:45 AM EDT) [facility] Protein, Total 7.1 6.1 - 8.0 gm/dL [facility] Albumin 3.9 3.2 - 5.2 gm/dL [facility] Aspartate Aminotransferase 46(H) 0 - 39 unit/L [facility] Alanine Aminotransferase 45 0 - 55 unit/L [facility] Alkaline Phosphatase 62 40 - 120 unit/L [facility] Bilirubin, Total 0.6 0.2 - 1.3 mg/dL [facility] Bilirubin, Direct 0.2 0.0 - 0.3 mg/dL [facility] Blood specimen (specimen) Venous Draw / Unknown 01/07/2017 7:45 AM EDT 01/07/2017 7:51 AM EDT Narrative Resulting Agency Comment Spec In Lab Gilbert Beltran APRN CHEMISTRY ORDERABLES Performing Organization Address [facility]/ZIP Co de Phone Number [facility] [place] [address] * Phosphorus (01/07/2017 7:45 AM EDT) [facility] Phosphorus 3.7 2.5 - 4.5 mg/dL [facility] Blood specimen (specimen) Venous Draw / Unknown 01/07/2017 7:45 AM EDT 01/07/2017 7:51 AM EDT Narrative Resulting Agency Comment Spec In Lab Gilbert Beltran RENAY CHEMISTRY ORDERABLES Performing Organization Address City/[facility]/ZIP Co de Phone Number [facility] [place] [address] * (ABNORMAL) Beta Hydroxybutyrate (01/07/2017 7:45 AM EDT) [facility] Beta-hydroxybu turate 1.55(H) 0.00 - 0.30 mmol/L [facility] Comment: Reference range: ??0.00-0.30 mmo1/L, based on an overnight fast. ??Children may be higher. Blood specimen (specimen) 01/07/2017 7:45 AM EDT 01/07/2017 7:50 AM EDT Narrative Resulting Agency Comment Spec In Lab Gilbert Devin NIÑO CHEMISTRY ORDERABLES Performing Organization Address [facility] Co de Phone Number [facility] [place] [address] * POCT Glucose (01/07/2017 4:08 AM EDT) [facility] Glucose, POC 84 65 - 199 mg/dL [facility] Comment: Supplemental ranges: <140 mg/dL before meals <180 mg/dL all other times of the day Blood specimen (specimen) 01/07/2017 4:08 AM EDT 01/07/2017 4:08 AM EDT Fernando Levine MD POINT OF CARE TEST O RDERABLES Performing Organization Address City/[facility]/ZIP Co de Phone Number [facility] [place] [address] * Differential, Automated (01/07/2017 2:45 AM EDT) Pathologist [facility] Neutrophil % 58.8 % [facility] Neutrophil Absolute 2.42 1.70 - 6.10 x10(3)/[facility] Lymph % 30.8 % [facility] Lymphocytes Abs 1.3 0.9 - 3.2 x10(3)/[facility] Monocyte % 8.5 % [facility] Monocyte Abs 0.4 0.3 - 0.9 x10(3)/[facility] Eos % 1.2 % [facility] Eosinophils Abs 0.0 0.0 - 0.4 x10(3)/[facility] Basophil % 0.5 % [facility] Baso Absolute 0.0 0.0 - 0.1 x10(3)/[facility] Immature Gran % 0.20 % [facility] Comment: Immature granulocytes(IG's)percentage and absolute count will include metamyelocytes, myelocytes, and promyelocytes. Blood smears from CBCs yielding IG's will be scanned manually for concordance. If this scan disagrees with the automated IG or if promyelocytes are noted, a manual differential will be performed. Immature Gran Absolute 0.01 0.00 - 0.04 x10(3)/[facility] Blood specimen (specimen) 01/07/2017 2:45 AM EDT 01/07/2017 2:52 AM EDT Narrative Resulting Agency Comment Spec In Lab Jamie Fleming [employer] HEMATOLOGY ORDERABLE S [facility] [place] [address] * (ABNORMAL) Hemogram (01/07/2017 2:45 AM EDT) [facility] White Blood Cell 4.1 4.0 - 9.5 x10(3)/mc L [facility] Red Blood Cell 4.08(L) 4.58 - 5.54 x10(6)/ L [facility] Hemoglobin 12.4(L) 13.7 - 16.5 gm/dL [facility] Hematocrit 36.4(L) 40.5 - 48.5 % [facility] Mean Cell Volume 89.2 82.9 - 93.1 fL [facility] Mean Cell Hemoglobin 30.4 27.5 - 32.1 pg [facility] Mean Cell Hemoglobin Concentration 34.1 32.0 - 35.7 gm/dL [facility] Platelet 162 145 - 357 x10(3)/mc L [facility] RDW Standard Deviation 41.7 36.0 - 45.0 [facility] RDW coefficient of variation 12.8 11.4 - 13.8 % [facility] Mean Platelet Volume 9.5 7.6 - 12.9 [facility] NRBC% auto 0.0 % [facility] NRBC Absolute 0.000 0.000 - 0.000 x10(3)/mc L [facility] Blood specimen (specimen) 01/07/2017 2:45 AM EDT 01/07/2017 2:52 AM EDT Narrative Resulting Agency Comment Spec In Lab Jamie Fleming [employer] HEMATOLOGY ORDERABLE S Performing Organization Address City/[facility]/ZIP Co de Phone Number [facility] [place] [address] * Magnesium (01/07/2017 2:45 AM EDT) Magnesium 0.83 0.69 - 1.07 mmol/L [facility] Blood specimen (specimen) 01/07/2017 2:45 AM EDT 01/07/2017 2:52 AM EDT Narrative Resulting Agency Comment Spec In Lab Jamie E Wellington [employer] CHEMISTRY ORDERABLES Performing Organization Address City/[facility]/ZIP Co de Phone Number [facility] [place] [address] * (ABNORMAL) Basic Metabolic Panel (non-fasting) (01/07/2017 2:45 AM EDT) Glucose 89 65 - 199 mg/dL [facility] Comment:Diabetes: >=200 mg/d L plus symptoms Blood Urea Nitrogen 19 10 - 20 mg/dL [facility] Creatinine 0.66(L) 0.80 - 1.50 mg/dL [facility] Sodium 143 135 - 145 mmol/L [facility] Potassium 4.0 3.5 - 5.0 mmol/L [facility] Comment: Please note: ??Patients with WBC >100,000 may have falsely elevated Potassium levels. ??For accurate Potassium quantification in these patients send serum separator tube (gold top) for subsequent determinations. ??Contact the Clinical Chemistry Laboratory if there are any questions. Chloride 104 98 - 107 mmol/L [facility] Carbon Dioxide 27 22 - 31 mmol/L [facility] Anion Gap 12 5 - 15 mmol/L [facility] Calcium 8.2(L) 8.5 - 10.5 mg/dL [facility] Est Glomerular Filtration Rate >60 >=60 [facility] Comment: The reported eGFR should be multiplied by 1.2 for patients. The MDRD is not an appropriate measure of renal function for patients with body mass extremes or in patients with acute kidney failure. http://[employer].NEHP/DHnkdep http://[employer]NEHP/DHMCnkf Blood specimen (specimen) 01/07/2017 2:45 AM EDT 01/07/2017 2:52 AM EDT Narrative Resulting Agency Comment Spec In Lab Jamie Fleming APRN CHEMISTRY ORDERABLES [facility] [place] [address] * (ABNORMAL) Urinalysis with reflex Culture (01/07/2017 12:46 AM EDT) Glucose, Urine Dipstick Negative Negative mg/dL [facility] Protein, Urine Dipstick 30(A) Negative mg/dL [facility] Bilirubin, Urine Dipstick Negative Negative mg/dL [facility] Comment: Clinical correlation required for positive Urine Bilirubin results as false positive may occur with some drugs and drug related products. If a false positive is suspected a serum total bilirubin should be considered if clinically indicated. Urobilinogen, Urine Dipstick 2.0(A) Normal mg/dL [facility] pH, Urn (dipstick) 5.0 5.0 - 8.0 [facility] Blood, Urine Dipstick Small(A) Negative mg/dL [facility] Ketone, Urine Dipstick >=80(Critica l) Negative mg/dL [facility] Comment: Urinalysis result NOT critical without a combination of Glucose greater than or equal to 500mg/dl AND Ketones greater than or equal to 80mg/dl. Nitrite, Urine Dipstick Negative Negative [facility] Leukocytes, Urine Dipstick Negative Negative [facility] Appearance, Urine Dipstick Cloudy(A) Clear [facility] Specific [place] Urine Automated 1.030 1.002 - 1.030 [facility] Color, Urine Dipstick Yellow Yellow [facility] RBC, Urine 28(H) 0 - 3 /HPF [facility] WBC, Urine 4(H) 0 - 3 /HPF [facility] Reflex to Culture No [facility] Urine specimen obtained via indwelling urinary catheter (specimen) 01/07/2017 12:46 AM EDT 01/07/2017 12:59 AM EDT Narrative Resulting Agency Comment Spec In Lab Jamie Fleming [employer] URINE ORDERABLES [facility] [place] [address] * XR Chest PA or AP 1 view (01/07/2017 12:35 AM EDT) Anatomical Region Laterality Modality Chest N/A Digital Radiogra phy Impressions 01/07/2017 12:57 AM EDT Support lines and tubes in appropriate position. No acute cardiopulmonary process. I have personally reviewed the image(s) and the residents interpretation and agree with the findings, Shanika Saleem at 01/07/2017 12:57 AM Narrative 01/07/2017 12:57 AM EDT EXAMINATION: XR CHEST PA OR AP 1 VIEW CLINICAL HISTORY: ETT placement TECHNIQUE: Portable AP semiupright chest radiograph COMPARISON: Chest radiograph 11/22/2009 FINDINGS: The endotracheal tube tip terminates approximately 4.5 cm from the adalberto. An enteric tube projects below the level of the diaphragm with catheter coiling in the fundus of the stomach. A right subclavian central line terminates in the distal SVC. Lungs are clear. No pleural effusion or pneumothorax. The cardiomediastinal silhouette is within normal limits. No osseous abnormality. Procedure Note Shanika Saleem MD - 01/07/2017 EXAMINATION: XR CHEST PA OR AP 1 VIEW CLINICAL HISTORY: ETT placement TECHNIQUE: Portable AP semiupright chest radiograph COMPARISON: Chest radiograph 11/22/2009 FINDINGS: The endotracheal tube tip terminates approximately 4.5 cm from the adalberto.An enteric tube projects below the level of the diaphragm with cathetercoiling in the fundus of the stomach. A right subclavian central line terminates inthe distal SVC. Lungs are clear. No pleural effusion or pneumothorax. Thecardiomediastinal silhouette is within normal limits. No osseous abnormality. IMPRESSION Support lines and tubes in appropriate position. No acute cardiopulmonary process. I have personally reviewed the image(s) and the residents interpretationand agree with the findings, Shanika Saleem at 01/07/2017 12:57 AM Jamie Yun [place] [employer] IMG DX ORDERABLES * POCT Glucose (01/07/2017 12:00 AM EDT) Glucose, POC 92 65 - 199 mg/dL [facility] Comment: Supplemental ranges: <140 mg/dL before meals <180 mg/dL all other times of the day Blood specimen (specimen) 01/07/2017 01/07/2017 12:00 AM EDT Fernando Levine MD POINT OF CARE TEST O RDERABLES [facility] [place] [address] documented in this encounter Visit Diagnoses Diagnosis Intentional polysubstance overdose- Primary Poisoning by unspecified drug or medicinal substance Intentional drug overdose, initial encounter On mechanically assisted ventilation Drug-induced encephalopathy At high risk for ineffective coping Other specified conditions influencing health status At risk for intentional self-harm At risk for elopement Rectal foreign body, initial encounter documented in this encounter Admitting Diagnoses Diagnosis Polysubstance overdose Poisoning by unspecified drug or medicinal substance documented in this encounter Administered Medications Inactive Administered Medications - up to 3 most recent administrations Medication Order MAR Action Action Date Dose Rate Site acetaminophen (TYLENOL) tablet 650 mg 650 mg, Oral, EVERY 4 HOURS PRN, Starting on 01/08/17 at 1024, Until Tu01/10/17 at 0936, Pain, Fever, Maximum dose of acetaminophen is 4000 mg from all sources in 24 hours., Routine Given 01/09/2017 9:09 PM EDT 650 mg Given 01/08/2017 8:32 PM EDT 650 mg amitriptyline (ELAVIL) tablet 25 mg 25 mg, Oral, NIGHTLY, First dose on 01/08/17 at 2200, Until Discontinued, Routine Given 01/09/2017 9:0 9 PM EDT 25 mg Given 01/08/2017 9:53 PM EDT 25 mg buprenorphine-nalOXone (SUBOXONE) 8-2 mg sublingual tablet 2 tablet 2 tablet, Sublingual, DAILY, First dose on 01/08/17 at 1415, Until Discontinued, STAT, Is patient ? No, A rapid qualitative urine drug screen (SARBJIT) has been performed within the last two days and is positive for buprenorphine. True, Name and phone number of the pharmacy that filled the most recent prescription (must be within past 30 days): [facility] [phone], Name and phone number of the authorizing provider of the outpatient prescription: [phone] Dr. Jenkins Given 01/10/2017 8:30 AM EDT 2 tablets Given 01/09/2017 8:22 AM EDT 2 tablets Given 01/08/2017 2:03 PM EDT 2 tablets chlorhexidine (PERIDEX) 0.12 % oral solution 15 mL 15 mL, Oral, 2 TIMES DAILY, First dose on 01/07/17 at 0900, Until Discontinued, Swab oral cavity. Ventilator-associated pneumonia prophylaxis, Routine Given 01/07/2017 8:10 AM EDT 15 mLs cloNIDine (CATAPRES) tablet 0.1 mg 0.1 mg, Oral, EVERY 4 HOURS PRN, Starting on 01/08/17 at 2017, Until 01/09/17 at 1656, Withdrawal symptoms, Routine Given 01/08/2017 9:51 PM EDT 0.1 mg cloNIDine (CATAPRES) tablet 0.1 mg 0.1 mg, Oral, 3 TIMES DAILY PRN, Starting on Mon01/09/17 at 1656, Until Mon01/10/17 at 0936, anxiety, Routine Given 01/10/2017 8:48 AM EDT 0.1 mg Given 01/09/2017 9:09 PM EDT 0.1 mg dexmedetomidine (PRECEDEX) 4 mcg/mL (standard Adult & Pedi greater than 20kg) infusion (premix) 0-1.7 mcg/kg/hr ? 90.9 kg (0-38.6325 mL/hr, rounded to 0-38.6 mL/hr), Intravenous, CONTINUOUS, Starting on 01/07/17 at 0800, Until Mon01/08/17 at 1715, Titrate to sedation level of RASS Goal (-)1 to 0 . Start at 0.4 mcg/kg/hr, adjust by 0.4 mcg/kg/hr every 15 minutes. Once stable, reassess patient every 30 minutes. Rate not to exceed 1.7 mcg/kg/hr. Change rate only after assessing and documenting RASS. Reassess sedation scores within 30 minutes after every rate change. If under sedated, increase rate by 0.4 mcg/kg/hr. If over sedated, hold sedative until target RASS (-)1 to 0 achieved and then restart at 50% of previous rate. Call warehouse puller if goal not achieved at maximum rate., Routine, Please indicate the name & specialty of the Attending Provider who authorized the use of this medication: Abner Rate/Dose Change 01/08/2017 1:00 PM EDT 0.2 mcg/kg/hr 4.5 mL/hr Rate/Dose Change 01/08/2017 12:10 PM EDT 0.4 mcg/kg/hr 9.1 mL/hr Rate/Dose Change 01/08/2017 11:37 AM EDT 0.6 mcg/kg/hr 13. 6 mL/hr dextrose 5% infusion 50 mL/hr, Intravenous, CONTINUOUS, Starting on 01/07/17 at 0915, Until 01/08/17 at 0708 New Bag 01/07/2017 10:57 PM EDT 50 mL/hr 50 mL/hr Rate/Dose Change 01/07/2017 5:39 PM EDT 50 mL/hr 50 mL/h r New Bag 01/07/2017 9:08 AM EDT 100 mL/hr 100 mL/hr enoxaparin (LOVENOX) injection 40 mg 40 mg, Subcutaneous, NIGHTLY, First dose on 01/09/17 at 2100, Until Discontinued, Routine famotidine (PEPCID) tablet 20 mg 20 mg, Oral, 2 TIMES DAILY, First dose on 01/07/17 at 0900, Until Discontinued, Routine Given 01/07/2017 10:12 AM EDT 20 mg fentaNYL (PF) 50 mcg/mL injection 1 dose, Starting on 01/07/17 at 0730, Until 01/07/17 at 0738, MERON CHAMBERLAIN: cabinet override fentaNYL 50mcg/mL injection 50 mcg, Intravenous, EVERY 1 HOUR PRN, Starting on 01/07/17 at 0734, Until 01/07/17 at 1739, Pain, Routine Given 01/07/2017 7:38 AM EDT 50 mcg folic acid (FOLVITE) tablet 1,000 mcg 1,000 mcg (1 mg), Oral, DAILY, First dose on 01/09/17 at 0900, Until Discontinued, Routine Given 01/10/2017 8:30 AM EDT 1,000 mcg Given 01/09/2017 8:22 AM EDT 1,000 mcg folic acid 1 mg in sodium chloride 0.9% 50.2 mL 1 mg, Intravenous, at 100.4 mL/hr, Administer over 30 Minutes, DAILY, First dose on Mon01/07/17 at 1000, Until Discontinued, Routine New Bag 01/08/2017 8:15 AM EDT 1 mg 100 .4 mL/hr New Bag 01/07/2017 9:14 AM EDT 1 mg 100.4 mL/hr gabapentin (NEURONTIN) capsule 1,200 mg 1,200 mg, Oral, 3 TIMES DAILY, First dose (after last modification) on Mon01/10/17 at 1500, Until Discontinued, Routine gabapentin (NEURONTIN) capsule 600 mg 600 mg, Oral, 3 TIMES DAILY, First dose on Mon01/08/17 at 2100, Until Discontinued, Routine Given 01/10/2017 8:29 AM EDT 600 mg Given 01/09/2017 11:41 PM EDT 600 mg Given 01/09/2017 2:10 PM EDT 600 mg gabapentin (NEURONTIN) capsule 600 mg 600 mg, Oral, ONCE, 1 dose, On Mon01/10/17 at 0900, Routine Given 01/10/2017 8:50 AM EDT 600 mg haloperidol lactate (HALDOL) injection 10 mg 10 mg, Intravenous, EVERY 6 HOURS PRN, Starting on Mon01/07/17 at 1730, Until Mon01/10/17 at 0936, Agitation, Routine Given 01/08/2017 8:32 PM EDT 10 mg Given 01/08/2017 4:33 AM EDT 10 mg Given 01/07/2017 10:40 PM EDT 10 mg heparin (Porcine) subcutaneous injection 5,000 Units 5,000 Units, Subcutaneous, EVERY 8 HOURS SCHEDULED, First dose on Mon01/07/17 at 0600, Until Discontinued, Routine Given 01/08/2017 6:01 AM EDT 5,000 Unit s Given 01/07/2017 10:16 PM EDT 5,000 Units Given 01/07/2017 1:24 PM EDT 5,000 Units lactated Ringers 1,000 mL IV bolus Intravenous, ONCE, 1 dose, On Mon01/07/17 at 1100 New Bag 01/07/2017 10:30 AM EDT lactated Ringers 1,000 mL IV bolus Intravenous, ONCE, 1 dose, On Mon01/07/17 at 2045 New Bag 01/07/2017 8:45 PM EDT lidocaine (XYLOCAINE) 10 mg/mL (1 %) injection 3 mg 3 mg (0.3 mL), Subcutaneous, ONCE PRN, 1 dose, Starting on Mon01/09/17 at 1547, Until Mon01/10/17 at 0936, for discomfort with PIV insertion, Routine LORazepam (ATIVAN) injection 1-2 mg 1-2 mg, Intravenous, EVERY 4 HOURS PRN, Starting on Mon01/08/17 at 0458, Until Mon01/09/17 at 1656, Agitation, Please administer 1mg for mild agitation or withdrawal symptoms and 2mg for moderate to severe agitation or withdrawal symptoms, Routine Given 01/09/2017 1:30 AM EDT 2 mg magnesium sulfate 2 g in sterile water 50 mL 2 g, Intravenous, ONCE, 1 dose, On Mon01/08/17 at 0245, Administer over 120 Minutes New Bag 01/08/2017 2:37 AM EDT 2 g 25 mL/hr methylphenidate HCl (CONCERTA) CR tablet 72 mg 72 mg, Oral, DAILY, First dose on Mon01/09/17 at 1245, Until Discontinued, DO NOT CRUSH OR OPEN, Routine Given 01/10/2017 8:29 AM EDT 72 mg Given 01/09/2017 12:48 PM EDT 72 mg nicotine polacrilex (NICORETTE) gum 2 mg 2 mg, Buccal, EVERY 2 HOURS PRN, Starting on Mon01/09/17 at 2209, Until Mon01/10/17 at 0936, Smoking cessation, Chew gum slowly. Do not swallow. Maximum 48 mg/day., Routine Given 01/10/2017 8:49 AM EDT 2 m g Given 01/09/2017 10:26 PM EDT 2 mg ondansetron (ZOFRAN) injection 4 mg 4 mg, Intravenous, EVERY 8 HOURS PRN, Starting on 01/07/17 at 1808, Until Mon01/10/17 at 0936, Nausea Given 01/07/2017 10:40 PM EDT 4 mg potassium chloride 10 mEq in 100 mL 10 mEq, Intravenous, EVERY 1 HOUR PRN, Starting on 01/08/17 at 0227, Until Mon01/09/17 at 1547, Administer over 60 Minutes, hypokalemia, Administer 4 times 10 meq/100 mL bags, each over 30-60 minutes for serum potassium (mMol/L) of 3.3 - 3.8 See instructions for Potassium Protocol in online policies. New Bag 01/08/2017 3:36 AM EDT 10 mEq 100 mL/hr New Bag 01/08/2017 2:42 AM EDT 10 mEq 100 mL/hr propofol (DIPRIVAN) infusion 0-50 mcg/kg/min ? 90.9 kg (0-27.27 mL/hr, rounded to 0-27.3 mL/hr), Intravenous, CONTINUOUS, Starting on 01/07/17 at 0015, Until 01/07/17 at 1419, Titrate to sedation level of RASS Goal (-)1 to 0 . Start at 20 mcg/kg/min, adjust rate by 10 mcg/kg/min every 3 minutes. Once stable, reassess patient every 30 minutes. Rate not to exceed 50 mcg/kg/minute. Change rate only after assessing and documenting RASS. Reassess sedation scores within 30 minutes after every rate change. If under sedated, increase rate by 10 mcg/kg/min. If over sedated, hold sedative until target RASS (-)1 to 0 achieved and then restart at 50% of previous rate. Call warehouse puller if goal not achieved at maximum rate., Routine Rate/Dose Change 01/07/2017 10:18 AM EDT 15 mcg/kg/min 8.2 mL/hr Rate/Dose Change 01/07/2017 8:50 AM EDT 20 mcg/kg/min 10.9 mL/hr Rate/Dose Change 01/07/2017 8:40 AM EDT 40 mcg/kg/min 21.8 mL/hr rOPINIRole (REQUIP) tablet 0.5 mg 0.5 mg, Oral, NIGHTLY, First dose on 01/08/17 at 2200, Until Discontinued, Routine Given 01/09/2017 9:0 9 PM EDT 0.5 mg Given 01/08/2017 9:51 PM EDT 0.5 mg sodium chloride 0.9 % flush 5 mL 5 mL, Intravenous, EVERY 12 HOURS, First dose on 01/09/17 at 1615, Until Discontinued, Routine Given 01/09/2017 4:00 PM EDT 5 mLs sodium chloride 0.9 % flush 5-20 mL 5-20 mL, Intravenous, EVERY 1 MIN PRN, Starting on 01/09/17 at 1547, Until Tu01/10/17 at 0936, flush, Flush pertains to all indwelling lines. Flush per protocol found in the job aid using the link provided on this medication record., Routine sodium chloride 0.9% 1,000 mL IV bolus Intravenous, ONCE, 1 dose, On 01/07/17 at 0845 New Bag 01/07/2017 8:30 AM EDT sodium chloride 0.9% infusion 10 mL/hr, Intravenous, CONTINUOUS, Starting on 01/07/17 at 0115, Until 01/09/17 at 1656 New Bag 01/07/2017 12:48 AM EDT 10 mL/hr 10 mL/hr thiamine (B-1) injection 100 mg 100 mg, Intravenous, DAILY, First dose on 01/07/17 at 0915, Until Discontinued, First dose administer before D5 infusion Given 01/08/2017 8:22 AM EDT 100 mg Given 01/07/2017 9:03 AM EDT 100 mg thiamine tablet 50 mg 50 mg, Oral, DAILY, First dose on 01/09/17 at 0900, Until Discontinued, Routine Given 01/10/2017 8:29 AM EDT 50 mg Given 01/09/2017 8:22 AM EDT 50 mg documented in this encounter Active and Recently Administered Medications Times are shown in EDT. Scheduled Medication Order 01/08/2017 01/09/2017 01/10/2017 amitriptyline (ELAVIL) tablet 25 mg 25 mg, Oral, NIGHTLY, First dose on 01/08/17 at 2200, Until Discontinued, Routine 2152 (Given - Provider: Raquel Woodson, RN) 2108 (Given - Provider: Raqule Woodson, RN) buprenorphine-nalOXone (SUBOXONE) 8-2 mg sublingual tablet 2 tablet 2 tablet, Sublingual, DAILY, First dose on 01/08/17 at 1415, Until Discontinued, STAT, Is patient ? No, A rapid qualitative urine drug screen (SARBJIT) has been performed within the last two days and is positive for buprenorphine. True, Name and phone number of the pharmacy that filled the most recent prescription (must be within past 30 days): [facility] [phone], Name and phone number of the authorizing provider of the outpatient prescription: [phone] Dr. Jenkins 1403 (Given - Provider: Rupert Ch RN) 0822 (Given - Provider: Rupert Ch RN) 0830 (Given - Provider: Aggie Hightower) enoxaparin (LOVENOX) injection 40 mg 40 mg, Subcutaneous, NIGHTLY, First dose on Mon01/09/17 at 2100, Until Discontinued, Routine 2100 (Not Given - Provider: Raquel Woodson RN - Reason: Patient/family refused) folic acid (FOLVITE) tablet 1,000 mcg 1,000 mcg (1 mg), Oral, DAILY, First dose on Mon01/09/17 at 0900, Until Discontinued, Routine 08 (Given - Provider: Rupert Ch RN) 0830 (Given - Provider: Aggie Hightower) folic acid 1 mg in sodium chloride 0.9% 50.2 mL (CANCELED) 1 mg, Intravenous, at 100.4 mL/hr, Administer over 30 Minutes, DAILY, First dose on Mon01/07/17 at 1000, Until Discontinued, Routine 0815 (New Bag - Provider: Rupert Ch RN)0845 (Stopped - Provider: Rupert Ch RN) gabapentin (NEURONTIN) capsule 1,200 mg 1,200 mg, Oral, 3 TIMES DAILY, First dose (after last modification) on Mon01/10/17 at 1500, Until Discontinued, Routine gabapentin (NEURONTIN) capsule 600 mg (CANCELED) 600 mg, Oral, 3 TIMES DAILY, First dose on Mon01/08/17 at 2100, Until Discontinued, Routine 2031 (Given - Provider: Raquel Woodson RN) 0819 (Given - Provider: Rupert Ch RN)1410 (Given - Provider: Rupert Ch RN)2341 (Given - Provider: Elizabeth Davies RN) 0829 (Given - Provider: Aggie Hightower) gabapentin (NEURONTIN) capsule 600 mg (COMPLETED) 600 mg, Oral, ONCE, 1 dose, On Mon01/10/17 at 0900, Routine 0850 (Given - Provider: Aggie Hightower) heparin (Porcine) subcutaneous injection 5,000 Units (CANCELED) 5,000 Units, Subcutaneous, EVERY 8 HOURS SCHEDULED, First dose on 01/07/17 at 0600, Until Discontinued, Routine 0601 (Given - Provider: Raquel Woodson RN)1453 (Not Given - Provider: Rupert Ch RN - Reason: Patient/family refused)2153 (Not Given - Provider: Raquel Woodson RN - Reason: Patient/family refused - Comment: refused med) 0600 (Not Given - Provider: Raquel Woodson RN - Reason: Patient/family refused)1400 (Not Given - Provider: Rupert Ch RN - Reason: Patient/family refused) magnesium sulfate 2 g in sterile water 50 mL (COMPLETED) 2 g, Intravenous, ONCE, 1 dose, On 01/08/17 at 0245, Administer over 120 Minutes 0237 (New Bag - Provider: Raquel Woodson RN)0437 (Stopped - Provider: Raquel Woodson RN) methylphenidate HCl (CONCERTA) CR tablet 72 mg 72 mg, Oral, DAILY, First dose on 01/09/17 at 1245, Until Discontinued, DO NOT CRUSH OR OPEN, Routine 1248 (Given - Provider: Rupert Ch RN) 0829 (Given - Provider: Aggie Hightower) rOPINIRole (REQUIP) tablet 0.5 mg 0.5 mg, Oral, NIGHTLY, First dose on 01/08/17 at 2200, Until Discontinued, Routine 2151 (Given - Provider: Raquel Woodson RN) 2109 (Given - Provider: Raquel Woodson RN) sodium chloride 0.9 % flush 5 mL 5 mL, Intravenous, EVERY 12 HOURS, First dose on 01/09/17 at 1615, Until Discontinued, Routine 1600 (Given - Provider: Rupert Ch RN) 0415 (Not Given - Provider: Elizabeth Davies RN - Reason: See comment - Comment: Flushed earlier) thiamine (B-1) injection 100 mg (CANCELED) 100 mg, Intravenous, DAILY, First dose on 01/07/17 at 0915, Until Discontinued, First dose administer before D5 infusion 0822 (Given - Provider: Rupert Ch RN) thiamine tablet 50 mg 50 mg, Oral, DAILY, First dose on 01/09/17 at 0900, Until Discontinued, Routine 0822 (Given - Provider: Rupert Ch RN) 0829 (Given - Provider: Aggie Hightower) Continuous Medication Order 01/08/2017 01/09/2017 01/10/2017 dexmedetomidine (PRECEDEX) 4 mcg/mL (standard Adult & Pedi greater than 20kg) infusion (premix) (CANCELED) 0-1.7 mcg/kg/hr ? 90.9 kg (0-38.6325 mL/hr, rounded to 0-38.6 mL/hr), Intravenous, CONTINUOUS, Starting on 01/07/17 at 0800, Until 01/08/17 at 1715, Titrate to sedation level of RASS Goal (-)1 to 0 . Start at 0.4 mcg/kg/hr, adjust by 0.4 mcg/kg/hr every 15 minutes. Once stable, reassess patient every 30 minutes. Rate not to exceed 1.7 mcg/kg/hr. Change rate only after assessing and documenting RASS. Reassess sedation scores within 30 minutes after every rate change. If under sedated, increase rate by 0.4 mcg/kg/hr. If over sedated, hold sedative until target RASS (-)1 to 0 achieved and then restart at 50% of previous rate. Call warehouse puller if goal not achieved at maximum rate., Routine, Please indicate the name & specialty of the Attending Provider who authorized the use of this medication: Roosevelt 0200 (Rate/Dose Verify - Provider: Raquel Woodson RN)0400 (Rate/Dose Verify - Provider: Raquel Woodson RN)0453 (New Bag - Provider: Raquel Woodson RN)0700 (Rate/Dose Change - Provider: Rupert Ch RN)0801 (New Bag - Provider: Rupert Ch RN)0842 (Rate/Dose Change - Provider: Rupert Ch RN)1033 (Rate/Dose Change - Provider: Rupert Ch RN)1137 (Rate/Dose Change - Provider: Rupert Ch RN)1210 (Rate/Dose Change - Provider: Rupert Ch RN)1300 (Rate/Dose Change - Provider: Rupert Ch RN)1400 (Canceled Entry - Provider: Rupert Ch RN) PRN Medication Order 01/08/2017 01/09/2017 01/10/2017 acetaminophen (TYLENOL) tablet 650 mg 650 mg, Oral, EVERY 4 HOURS PRN, Starting on 01/08/17 at 1024, Until Mon01/10/17 at 0936, Pain, Fever, Maximum dose of acetaminophen is 4000 mg from all sources in 24 hours., Routine 2031 (Given - Provider: Raquel Woodson RN) 2108 (Given - Provider: Raquel Woodson, LAUREN) cloNIDine (CATAPRES) tablet 0.1 mg (CANCELED) 0.1 mg, Oral, EVERY 4 HOURS PRN, Starting on 01/08/17 at 2017, Until Mon01/09/17 at 1656, Withdrawal symptoms, Routine 2150 (Given - Provider: Raquel Woodson, LAUREN) cloNIDine (CATAPRES) tablet 0.1 mg 0.1 mg, Oral, 3 TIMES DAILY PRN, Starting on 01/09/17 at 1656, Until Mon01/10/17 at 0936, anxiety, Routine 2108 (Given - Provider: Raquel Woodson RN) 0848 (Given - Provider: Aggie Hightower) haloperidol lactate (HALDOL) injection 10 mg 10 mg, Intravenous, EVERY 6 HOURS PRN, Starting on 01/07/17 at 1730, Until Mon01/10/17 at 0936, Agitation, Routine 432 (Given - Provider: Xochilt Hastings RN)2031 (Given - Provider: Raquel Woodson RN) lidocaine (XYLOCAINE) 10 mg/mL (1 %) injection 3 mg 3 mg (0.3 mL), Subcutaneous, ONCE PRN, 1 dose, Starting on 01/09/17 at 1547, Until Mon01/10/17 at 0936, for discomfort with PIV insertion, Routine LORazepam (ATIVAN) injection 1-2 mg (CANCELED) 1-2 mg, Intravenous, EVERY 4 HOURS PRN, Starting on 01/08/17 at 0458, Until Mon01/09/17 at 1656, Agitation, Please administer 1mg for mild agitation or withdrawal symptoms and 2mg for moderate to severe agitation or withdrawal symptoms, Routine 013 (Given - Provider: Raquel Woodson, RN) nicotine polacrilex (NICORETTE) gum 2 mg 2 mg, Buccal, EVERY 2 HOURS PRN, Starting on 01/09/17 at 2209, Until Mon01/10/17 at 0936, Smoking cessation, Chew gum slowly. Do not swallow. Maximum 48 mg/day., Routine 2226 (Given - Provider: Elizabeth Davies RN) 0849 (Given - Provider: Aggie Hightower) ondansetron (ZOFRAN) injection 4 mg 4 mg, Intravenous, EVERY 8 HOURS PRN, Starting on 01/07/17 at 1808, Until Mon01/10/17 at 0936, Nausea potassium chloride 10 mEq in 100 mL (CANCELED)(Linked Group 1) 10 mEq, Intravenous, EVERY 1 HOUR PRN, Starting on 01/08/17 at 0227, Until Mon01/09/17 at 1547, Administer over 60 Minutes, hypokalemia, Administer 4 times 10 meq/100 mL bags, each over 30-60 minutes for serum potassium (mMol/L) of 3.3 - 3.8 See instructions for Potassium Protocol in online policies. 0242 (New Bag - Provider: Raquel Woodson, LAUREN)0336 (New Bag - Provider: Raquel Woodson, RN)0342 (Stopped - Provider: Raquel Woodson, LAUREN)0436 (Stopped - Provider: Raquel Woodson, RN) sodium chloride 0.9 % flush 5-20 mL 5-20 mL, Intravenous, EVERY 1 MIN PRN, Starting on 01/09/17 at 1547, Until Mon01/10/17 at 0936, flush, Flush pertains to all indwelling lines. Flush per protocol found in the job aid using the link provided on this medication record., Routine Linked Groups Order Group 1: potassium chloride 10 mEq in 100 mL (CANCELED) 10 mEq, Intravenous, EVERY 1 HOUR PRN, Starting on 01/08/17 at 0227, Until Mon01/09/17 at 1547, Administer over 60 Minutes, hypokalemia, Administer 2 times 10 meq/100 mL bags, each over 30-60 minutes for serum potassium (mMol/L) of 3.9 - 4 See instructions for Potassium Protocol in online policies. Or potassium chloride 10 mEq in 100 mL (CANCELED)Jump to med 10 mEq, Intravenous, EVERY 1 HOUR PRN, Starting on 01/08/17 at 0227, Until 01/09/17 at 1547, Administer over 60 Minutes, hypokalemia, Administer 4 times 10 meq/100 mL bags, each over 30-60 minutes for serum potassium (mMol/L) of 3.3 - 3.8 See instructions for Potassium Protocol in online policies. Or potassium chloride 10 mEq in 100 mL (CANCELED) 10 mEq, Intravenous, EVERY 1 HOUR PRN, Starting on 01/08/17 at 0227, Until 01/09/17 at 1547, Administer over 60 Minutes, hypokalemia, Administer Administer 6 times 10 meq/100 mL bags, each over 30-60 minutes for serum potassium (mMol/L) of 2.8 - 3.2 See instructions for Potassium Protocol in online policies. documented in this encounter Care Teams Senior Analyst Programmer Relationship Specialty Start Date End Date Aguila Patton PA [address] [place] [address] PCP - General General Internal Medicine 12/08/1609/21 documented as of this encounter
--- OUTSIDE RECORDS SUMMARY | 2024-02-19 14:48 | XMS_ITS | Clinical Summary ---
Author Organization [facility] Address [address] [place] [address] Care Team Providers Care Flooring Mechanic Name Role Phone Unknown, Provider MD Primary Care Provider Unava ilable Social History Tobacco Use Types Packs/Day Years Used Date Smoking Tobacco: Never Assessed Sex and Gender Information Value Date Recorded Sex Assigned at Not on file Legal Sex Male 18:09 EST Gender Identity Not on file Sexual Orientation Not on file Plan of Treatment Health Maintenance Due Date Last Done Comments Hepatitis C Screen 1974 Hepatitis B Vaccine (1 of 3 - 19+ 3-dose series) 11/14 COVID-19 Vaccine ( season) 2023 Care Teams Flooring Mechanic Relationship Specialty Start Date End Date Unknown, Provider, PCP - General 12/19/14
--- OUTSIDE RECORDS SUMMARY | 2024-02-19 14:48 | XMS_ITS | Encounter Summary ---
Author Organization [facility] Address [facility] [place] [address] Care Team Providers Care Cylinder Filler Name Role Phone Aguila Patton Primary Care Provider [phone] Encounter Details Date Type Department Care Team (Late st Contact Info) Description 02/02/2017 Telephone Infectious [place] [phone] Sonam Esqueda, LAUREN [facility] [place] [address] Social History Tobacco Use Types Packs/Day Years [...] Miscellaneous Notes * Telephone Encounter - Sonam Esqueda RN - 02/02/2017 5:12 PM EST Phone call to patient to follow up on HCV referral Dima was seen by Dr. Riley several years ago and had a liver biopsy done at . 02/02/2017 HCV Initial Telephone Note Referred by: Dr. Cavazos ([place] Best Contact Method: LABS HCV antibody (+): HCV pcr: Genotype: 1a Fibrosure: Liver biopsy: 2007 Liver, needle biopsy showing portal lymphocytic aggregates, mild interface hepatitis and mild lobular inflammation. Trichrome stain shows portal fibrosis and focal fibrous septa. Iron stain is negative for iron deposition. The findings are consistent with chronic hepatitis C, stage 1-2/4, grade 2/4 (mild activity). IMAGING Ultrasound: 2016 ultrasound - 2 mildly echogenic areas, recommend follow up Fibroscan: Risk factors: Active substance use: Sober x 3 weeks. Recent OD with benzo/meth (intubated etc) [facility]. About to start IOP in [facility]. Has sponsor. Will be working with [facility] team once he meets with [facility] on Monday. On suboxone. No needles in >1 year. Alcohol use: not current, did not assess past Assessment of readiness to engage in treatment: Barriers to engagement- Transportation/Housing: stable Substance use history: extensive, and recent. Has plan of care for sobriety in place. On suboxone. Legal issues: Support: Parents, brother, 3 children (11,13.18), sponsor Insurance: [place] Medicaid Other Health concerns: Hep A status: Says he was vaccinated, not sure where. One dose of twinrix here in 2005 (note documents second dose 12/28/2007 but not charted) Hep B status:Says he was vaccinated, not sure where. One dose of twinrix here in 2005 HIV status: Negative just a few weeks ago Previous treatment history: none Educational Needs: He sounds pretty knowledgeable of the issues. His brother just completed [employer]. 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 He states he is highly motivated to stay clean and get treated. Appointment date: Labs ordered: Records requested: Releases obtained: PCP/ other provider: Discussed expectations/ schedule for clinic and lab appointments and importance of med adherence. SONAM ESQUEDA, RN documented in this encounter Plan of Treatment Not on file documented as of this encounter Visit Diagnoses Not on filedocumented in this encounter Care Teams Cylinder Filler Relationship Specialty Start Date End Date Aguila Patton PA [address] [place] [address] PCP - General General Internal Medicine 12/08/1609/21 documented as of this encounter
--- OUTSIDE RECORDS SUMMARY | 2024-02-19 14:48 | XMS_ITS | Encounter Summary ---
Author Organization [facility] Address [facility] [place] [address] Care Team Providers Care Burner Hand Name Role Phone Unknown Primary Care Provider Unavailabl e Encounter Details Date Type Department Care Team (Late st Contact Info) Description 10/25/2023 Interpretation Only Radiology Library at [facility] [place] [phone] Filiberto Grider MD [facility] [place] [address] Social History Tobacco Use Types Packs/Day Years [...] Grider MD IMG FILM LIBRARY ORD ERABLES [place], [place] documented in this encounter Visit Diagnoses Not on filedocumented in this encounter Care Teams Burner Hand Relationship Specialty Start Date End Date Unknown None PCP - General 09/22/20 documented as of this encounter
--- OUTSIDE RECORDS SUMMARY | 2024-02-19 14:48 | XMS_ITS | Encounter Summary ---
Author Organization [facility] Address [facility] [place] [address] Care Team Providers Care Product Builder Name Role Phone Unknown Primary Care Provider Unavailabl e Encounter Details Date Type Department Care Team (Late st Contact Info) Description 10/25/2023 Interpretation Only Radiology Library at [facility] [place] [phone] Filiberto Grider MD [facility] [place] [address] Social History Tobacco Use Types Packs/Day Years [...] Grider MD IMG FILM LIBRARY ORD ERABLES [place], [place] documented in this encounter Visit Diagnoses Not on filedocumented in this encounter Care Teams Product Builder Relationship Specialty Start Date End Date Unknown None PCP - General 09/22/20 documented as of this encounter
--- OUTSIDE RECORDS SUMMARY | 2024-02-19 14:48 | XMS_ITS | Encounter Summary ---
Author Organization [facility] Address [address] [place] [address] Care Team Providers Care Wage Conciliator Name Role Phone Unavailable Primary Care Provider Unavailabl e Encounter Details Date Type Department Care Team (Latest Contact Info) Description 12/07/2014 10:56 EDT - 12/07/2014 23:59 EDT Hospital Encounter [facility] - [address] [address] Unknown, Provider, MD Discharge Disposition: Home or Self Care Social History Tobacco Use Types Packs/Day Years Used Date Smoking Tobacco: Never Assessed Sex and Gender Information Value Date Recorded Sex Assigned at Not on file Legal Sex Male 18:09 EST Gender Identity Not on file Sexual Orientation Not on file documented as of this encounter Discharge Disposition Disposition Code Departure Means Destination Home or Self Correction documented in this encounter Plan of Treatment Not on file documented as of this encounter Visit Diagnoses Not on filedocumented in this encounter
--- OUTSIDE RECORDS SUMMARY | 2024-02-19 14:48 | XMS_ITS | Encounter Summary ---
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 medications: Zoloft, amitriptyline, methylphenidate, gabapentin Substance Use History/Treatment: Alcohol: drinking 2x since leaving [facility]. Around 3-4 beers each time. Opiates: Percocet, oxycodone, heroin - placed on methadone for maintenance, recently switched to suboxone from [facility] - on 16mg last filled at [facility] on 01/01, with a 2 week prescription Tobacco: 0.5 ppd and 0.5 can of chew Cocaine: No cocaine in months. A lot more a year and a half ago Marijuana: denies Denies any other illicit substances Audit-C Tobacco Use Status (Tob-1) 1. How often do you have a drink containing alcohol? 2 to 4 times a month - (2pt) 2. How many standard drinks containing alcohol do you have a typical day? 3 or 4 - (1pt) 3. How often do you have six or more drinks on one occasion? Less than monthly - (1pt) Total Score: 4 In men, a score of 4 or more is considered positive, optimal for identifying hazardous drinking or active alcohol use disorder. In women, a score of 3 or more is considered positive (same as above). Tobacco Use Status (Tob-1): Have you used tobacco products in the past 30 days? Yes Tobacco Use Treatment (Tob-2 - Medication) Would you like a medication to help with tobacco cessation? No Tobacco Use Treatment (Tob-2 - Counseling) Would you like counseling for help with quitting tobacco? No Outpatient Medications: Current Facility-Administered Medications on File Prior to Encounter Medication Dose Route Frequency Provider Last Rate Last Dose ??? [COMPLETED] gabapentin (NEURONTIN) capsule 600 mg 600 mg Oral Once Bay Vanessa MD 600 mg at 01/10/17 0850 ??? [DISCONTINUED] gabapentin (NEURONTIN) capsule 1,200 mg 1,200 mg Oral TID Bay Vanessa MD ??? [DISCONTINUED] methylphenidate HCl (CONCERTA) CR tablet 72 mg 72 mg Oral Daily Sheila Cole PA 72 mg at 01/10/17 0829 ??? [DISCONTINUED] enoxaparin (LOVENOX) injection 40 mg 40 mg Subcutaneous Nightly Bay Vanessa MD ??? [DISCONTINUED] sodium chloride 0.9 % flush 5 mL 5 mL Intravenous Q12H Bay Vanessa MD 5 mLat 01/09/17 1600 ??? [DISCONTINUED] sodium chloride 0.9 % flush 5-20 mL 5-20 mL Intravenous Q1 Min PRN Bay Vanessa MD ??? [DISCONTINUED] lidocaine (XYLOCAINE) 10 mg/mL (1 %) injection 3 mg 0.3 mL Subcutaneous Once PRNYBay gómez MD ??? [DISCONTINUED] cloNIDine (CATAPRES) tablet 0.1 mg 0.1 mg Oral TID PRN Bay Vanessa MD 0.1 mg at 01/10/17 0848 ??? [DISCONTINUED] nicotine polacrilex (NICORETTE) gum 2 mg 2 mg Buccal Q2H PRN Sherrell Vela, PLAQUE [employer]ER 2 mg at 01/10/17 0849 ??? [DISCONTINUED] potassium chloride 10 mEq in 100 mL 10 mEq Intravenous Q1H PRN Taylor Perera, [employer]QUE [employer] ??? [DISCONTINUED] potassium chloride 10 mEq in 100 mL 10 mEq Intravenous Q1H PRN Taylor Perera, [employer]QUE [employer]ER Stopped at 01/08/17 0342 ??? [DISCONTINUED] potassium chloride 10 mEq in 100 mL 10 mEq Intravenous Q1H PRN Taylor Perera, PLAQUE [employer]ER ??? [DISCONTINUED] LORazepam (ATIVAN) injection 1-2 mg 1-2 mg Intravenous Q4H PRN Taylor Perera, PLAQUE [employer]ER 2 mg at 01/09/17 0130 ??? [DISCONTINUED] acetaminophen (TYLENOL) tablet 650 mg 650 mg Oral Q4H PRN Shirley Hayden, PLAQUE [employer]ER 650 mg at 01/09/17 2109 ??? [DISCONTINUED] buprenorphine-nalOXone (SUBOXONE) 8-2 mg sublingual tablet 2 tablet 2 tablet Sublingual Daily Brii Desai PA 2 tablet at 01/10/17 0830 ??? [DISCONTINUED] folic acid (FOLVITE) tablet 1,000 mcg 1 mg Oral Daily Shirley Hayden, PLAQUE [employer]KER 1,000 mcg at 01/10/17 0830 ??? [DISCONTINUED] thiamine tablet 50 mg 50 mg Oral Daily Shirley Hayden [employer]QUE [employer]ER 50 mg at 829 ??? [DISCONTINUED] gabapentin (NEURONTIN) capsule 600 mg 600 mg Oral TID Butch Perera, PLAQUE [employer]KER 600 mg at 01/10/17 0829 ??? [DISCONTINUED] sertraline (ZOLOFT) tablet 100 mg 100 mg Oral Daily Butch Perera, PLAQUE [employer]KER ??? [DISCONTINUED] amitriptyline (ELAVIL) tablet 25 mg 25 mg Oral Nightly Butch Perera, APRN25 mg at 01/09/172108 ??? [DISCONTINUED] cloNIDine (CATAPRES) tablet 0.1 mg 0.1 mg Oral Q4H PRN Butch Perera, APRN0.1 mg at 01/08/172150 ??? [DISCONTINUED] rOPINIRole (REQUIP) tablet 0.5 mg 0.5 mg Oral Nightly Butch Perera, PLAQUE [employer]KER 0.5 mg at 01/09/172108 ??? [DISCONTINUED] sodium chloride 0.9% infusion 10 mL/hr Intravenous Continuous Polly Paris, PLAQUE [employer]ER 10 mL/hr at 01/07/17 0048 10 mL/hr at 01/07/17 0048 ??? [DISCONTINUED] haloperidol lactate (HALDOL) injection 10 mg 10 mg Intravenous Q6H PRN Shirley Hayden [employer]QUE [employer] 10 mg at 01/08/172031 ??? [DISCONTINUED] ondansetron (ZOFRAN) injection 4 mg 4 mg Intravenous Q8H PRN Shirley Hayden [employer]QUE [employer]ER 4 mg at 01/07/17 2240 ??? [DISCONTINUED] sodium chloride 0.9% infusion 10 mL/hr Intravenous Continuous PRN Polly Paris, PLAQUE [employer]ER ??? [DISCONTINUED] heparin (Porcine) subcutaneous injection 5,000 Units 5,000 Units Subcutaneous Q8H MINA Polly Paris, PLAQUE [employer]KER 5,000 Units at 01/08/17 0601 Current Outpatient Prescriptions on File Prior to Encounter Medication Sig Dispense Refill ??? buprenorphine-nalOXone (SUBOXONE) 8-[address] 16 mg under the tongue daily. ??? cloNIDine (CATAPRES) 0.1 mg Tablet Take 1 tablet by mouth every 4 hours as needed (anxiety). 30tablet 0 ??? [START ON 01/11/2017] folic acid (FOLVITE) 1 mg Tablet Take 1 tablet by mouth daily. 90 tablet 3 ??? methylphenidate HCl (CONCERTA) 36 mg Tablet Extended Rel 24 hr Take 2 tablets by mouth daily. ??? nicotine polacrilex (NICORETTE) 2 mg Gum Take 1 each by mouth every 2 hours as needed for Smoking cessation. ??? [START ON 01/11/2017] thiamine 50 mg Tablet Take 2 tablets by mouth daily. ??? gabapentin (NEURONTIN) 600 mg Tablet Take 1,200 mg by mouth 3 times daily. 0 ??? amitriptyline (ELAVIL) 25 mg Tablet Take 25 mg by mouth nightly. 0 ??? rOPINIRole (REQUIP) 0.5 mg Tablet Take 0.5 mg by mouth nightly. 0 ??? [DISCONTINUED] methylphenidate HCl (CONCERTA) 54 mg Tablet Extended Rel 24 hr Take 54 mg by mouth daily. 0 ??? [DISCONTINUED] cloNIDine (CATAPRES) 0.1 mg Tablet Take 0.1 mg by mouth every 4 hours as needed.0 ??? [DISCONTINUED] sertraline (ZOLOFT) 100 mg Tablet Take 100 mg by mouth daily. 0 ??? [DISCONTINUED] CIS Free Text Med - D-ampehetamine ??? [DISCONTINUED] CIS Free Text Med - Effexor ??? [DISCONTINUED] BUPRENORPHINE HCL/NALOXONE HCL (SUBOXONE SL) ??? [DISCONTINUED] citalopram (CELEXA) 20 mg tablet ??? [DISCONTINUED] lisinopril (PRINIVIL;ZESTRIL) 20 mg tablet ??? [DISCONTINUED] ACETAMINOPHEN/DP-HYDRAM HCL (TYLENOL PM ORAL) Allergies: No Known Allergies Problem List: Patient Active Problem List Diagnosis Code ??? Intentional polysubstance overdose T50.902A ??? Drug-induced encephalopathy G92 ??? At high risk for ineffective coping Z91.89 ??? At risk for intentional self-harm Z91.89 ??? At risk for elopement Z91.89 ??? Rectal foreign body, initial encounter T18.5XXA Past Medical/Surgical History: Past Medical History: Diagnosis Date ??? Depression ??? HCV (hepatitis C virus) ??? Osteomyelitis ??? Polysubstance abuse No past surgical history on file. Family Medical/Psychiatric History: Father: alcohol use disorder, threatened suicide multiple times Mother: depression Social History: Has three children that live with his parents, 11, 13, and 18. He states that he could go his brother's or his mother's. He is considering [facility] for after this hospitalization. History of Abuse or Neglect: Denies history of physical or sexual abuse. Legal History: He approximates 20 domestic charges spent 18 months in [facility] for. DWI with 6 months. Spent a total of 7 years in [facility] from various charges of violating probation with drug charges to 11 months for sexual assault charges. Pain Assessment: Recent pain severity: 4/10 (10=worst) Location of pain due to medical condition: Lower back Controlled with use of: ibuprofen Review of Systems: Review of Systems: (2, 10) CONST No fever EYES No Blurriness ENT No sore throat CV No Angina RESP No Shortness of Breath GI No nausea /PUBLIC WEIGHER (include LMP if applicable) No dysuria MSK No myalgias SKIN No rash NEURO No headache PSYCH See above. ENDO No diaphoresis HEME/LYMPH No easy bruising ALL/IMMUNO No symptoms of Sinustis Physical Exam: Vitals Admission (Current) from 01/10/[address] [place] [address] Weight - Scale 91.5 kg (201 lb 11.5 oz) Height 185.4 cm (6' 1) BSA (Calculated - sq m) 2.17 sq meters BMI (Calculated) 26.61 Temp 36.5 ??C (97.7 ??F) Temp Source Oral Heart Rate from SPO2 94 bpm Resp 12 BP 137/74 Musculoskeletal System: normal gait and balance and ambulates independently (See also: MSE: Behavior) GEN No acute distress HEAD Normocephalic and Atraumatic EYES EOMI ENT Moist mucous membranes NECK No thyromegaly CV RRR and No M/G/R PULM Clear to auscultation bilaterally ABD Soft, NT, ND and +BS EXTR No C/C/E NEURO Grossly nonfocal SKIN Rash on right thumb, not bothersome Mental Status Exam: ?? Appearance: age appropriate, casually dressed and disheveled ?? Behavior: calm and cooperative ?? Speech: normal pitch and normal volume ?? Language: fluent haitian, mildly profane ?? Mood: alright ?? Affect: euthymic and constricted ?? Thought Process: linear and goal directed ?? Associations: no loose associations ?? Thought Content: no homicidal ideation. no suicidal ideation. ?? Perception: no AVH. no delusions. ?? Orientation: person, place, time/date and situation ?? Attention/Concentration: intact ?? Cognition: grossly intact ?? Memory: recent and remote memory intact ?? Fund of Knowledge: appropriate ?? Insight: limited ?? Judgment: limited Pertinent Labs or Studies: Labs Last 24 Hours: Recent Results (from the past 24 hour(s)) Basic Metabolic Panel (non-fasting) Result Value Ref Range Glucose Lvl 81 65 - 199 mg/dL BUN 11 10 - 20 mg/dL Creatinine 0.73 (L) 0.80 - 1.50 mg/dL Sodium 141 135 - 145 mmol/L Potassium 3.8 3.5 - 5.0 mmol/L Chloride 101 98 - 107 mmol/L CO2 28 22 - 31 mmol/L Anion Gap 12 5 - 15 mmol/L Calcium 8.8 8.5 - 10.5 mg/dL Estimated GFR >60 >=60 Hemogram Result Value Ref Range WBC 4.5 4.0 - 9.5 x10(3)/mcL RBC 4.30 (L) 4.58 - 5.54 x10(6)/mcL Hemoglobin 12.8 (L) 13.7 - 16.5 gm/dL Hematocrit 37.1 (L) 40.5 - 48.5 % MCV 86.3 82.9 - 93.1 fL MCH 29.8 27.5 - 32.1 pg MCHC 34.5 32.0 - 35.7 gm/dL Platelets 157 145 - 357 x10(3)/mcL RDWSD 38.9 36.0 - 45.0 fL RDWCV 12.3 11.4 - 13.8 % MPV 9.9 7.6 - 12.9 fL nRBC % Auto 0.0 % nRBC Abs Auto 0.000 0.000 - 0.000 x10(3)/mcL Differential, Automated Result Value Ref Range Neutrophils % 55.3 % Neutr Abs (ANC) 2.47 1.70 - 6.10 x10(3)/mcL Lymphocytes % 29.6 % Lymphocytes Abs 1.3 0.9 - 3.2 x10(3)/mcL Monocytes % 9.0 % Monocyte Abs 0.4 0.3 - 0.9 x10(3)/mcL Eosinophils % 5.2 % Eosinophils Abs 0.2 0.0 - 0.4 x10(3)/mcL Basophils % 0.7 % Basophils Abs 0.0 0.0 - 0.1 x10(3)/mcL Immature Gran % 0.20 % Ariane Gran Abs 0.01 0.00 - 0.04 x10(3)/mcL Metabolic Labs: No results found for: TSH No results found for: HA1C No results found for: CHLPL, HDL, CHOLHDL, LDLCHOL, LDLDIRECT, TRIG Assessment: 41 y.o. Male with history of depression and polysubstance abuse presents to [facility] with apparent suicide attempt via overdose. Safety Risk Assessment: Warrants inpatient admission for safety, stabilization, and any other therapeutic intervention that could conceivably improve the patient's condition (including medication management, group psychotherapy, establishing adequate outpatient care). DSM Diagnosis: Substance induced mood disorder Clinical Global Impression: Severity of illness: Considering your total clinical experience with this particular population, how mentally ill is the patient at this time? 4 = Moderately ill Plan: Substance induced mood disorder with suicide attempt ?? Admit patient to Psychiatry Care Unit ?? Activity: Escort to Group (ETG) ?? Continue amitriptyline 25 mg daily ?? Continue gabapentin 1200 mg TID ?? Continue suboxone 16-2 daily ?? Continue concerta 72 mg daily ?? Ropinirole 0.5 mg nightly for restless leg syndrome ?? Encourage group sessions and social milieu ?? Nicotine patches available, nicotine gum as well ?? Folic acid and thiamine available ?? Clonidine 0.1 mg TID PRN for anxiety ?? Atarax 25 mg TID PRN for anxiety ?? Melatonin 3 mg nightly for sleep ?? Trazodone 50 mg nightly for insomnia Preventative/Prophylaxis: ?? Pneumovax and Influenza immunizations to be given as needed. ?? DVT prophylaxis not indicated: patient is at low risk for VTE and is fully ambulatory. ?? If currently a smoker: advised about smoking cessation, will provide cessation material and support. Disposition: Estimated length of time needed for hospital staff is 3-5 days. Proposed post-discharge care will likely include re-establishing follow-up care with existing providers. Team will contact outpatient prescriber and therapist for collateral information and continuity of care. Discussed Advanced Directives and Code Status. The patient wishes to be Full Code. I certify that the inpatient psychiatric hospital admission is medically necessary for Treatment that could reasonably be expected to improve patient's condition. Precertification: Required: deferred to social work Signed By: Eze Knight MD 01/10/2017 Associated attestation - Qamar Toro MD - 01/11/2017 2:38 PM EDT PSYCHIATRY TEACHING PHYSICIAN INVOLVEMENT Location: Inpatient Psychiatry 2E Attending Physician: Dr. Cortez MD Resident name: Dr. Knight I saw and evaluated the patient without the above named resident. I reviewed the patient's history during the visit and I agree with the details as written. My exam confirms the resident's findings. The assessment and plan were formulated in discussion with me and I agree with them as documented. Major issues addressed/discussed: 1. 41 y/o male with history of depression and polysubstance use that presents following suspected SA. Patient is interested in re-engaging in substance use treatment and is denying SI on admission. Will gather collateral and help patient explore addiction treatment options while optimizing medications. Patient likely to benefit from groups for coping skills. Primary Diagnosis: Unspecified depressive disorder and opioid use disorder I certify that the patient requires: [x] inpatient care for psychiatric treatment that could reasonably be expected to improve the patient's condition and or diagnostic study. documented in this encounter Miscellaneous Notes * Med Student Progress Note - Shreyas Hernandez - 01/12/2017 9:05 AM EDT Psychiatry Inpatient - Progress Note 01/12/2017 ID: Dima Li Jr. (goes by Cullen) is a 41 y.o. male with depression and polysubstance use ??admitted on 01/10/2017??for??apparent suicide attempt via overdose. Hospital day 2. Current Working Primary Diagnosis: Substance induced mood disorder Pertinent medical issues being addressed: N/A Interval History: (1,1,4) Narrative: Cullen reports his mood is okay, and feels ready for discharge today. He found art grouphelpful as a chance to socialize without being drunk or high, which he states he is receptive to trying to continue outside the hospital. He expressed a desire to eventually be off all psychiatric m edications, which he was counseled would take time and it was important to maintain sobriety beforeconsidering discontinuation. He expresses concern about insurance coverage for his new suboxone prescription. He states that he has asked his brother to dispose of 0.5 g of methamphetamine in a car he recently bought. He asked about experiencing some hypnopompic auditory hallucinations/illusions (he mistook the air conditioning ambient noise for TV cartoons) intermittently a few weeks ago, but hereports they are not bothersome and was counseled that these are quite common. Per nursing report: Slept through the night. Rates depression 0/10, anxiety 0/10, chronic low back pain 1/10. Attended groups yesterday, has reconciled with girlfriend and admitted that his son has amedical marijuana card. Review of Systems: (0,1,2) CONST +Low back pain CV Denies chest pain RESP Denies SOB GI NEURO PSYCH See above. Physical Exam: (1,6,9) Vitals (24hr Range): Temp: [37.1 ??C (98.8 ??F)] Resp: [12] Heart Rate: [70-92] BP: (125-154)/(66-80) SpO2: -- Patient Vitals for the past 168 hrs: Weight 01/10/17 1019 91.5 kg (201 lb 11.5 oz) Musculoskeletal System: normal gait and balance, ambulates independently, no atrophy and no abnormal movements Mental Status Exam: ?? Appearance: age appropriate, casually dressed, tattooed. ?? Behavior: calm, cooperative, good eye contact, less intense staring than in previous days. ?? Speech: normal rate, rhythm, volume, prosody. Verbose. ?? Language: fluent, Marshallese-speaking, non-profane. ?? Mood: okay ?? Affect: euthymic, constricted ?? Thought Process: linear, logical, goal-directed ?? Associations: tight ?? Thought Content: Denies suicidal or homicidal ideation. No evidence of paranoia or delusions. ?? Perception: Denies AVH. Does not appear to be responding to internal stimuli. ?? Orientation: alert and oriented times three. ?? Attention/Concentration: grossly intact ?? Cognition: grossly intact ?? Memory: recent and remote intact. ?? Fund of Knowledge: appropriate for age and level of education ?? Insight: limited - continues to deny that overdose was suicide attempt ?? Judgment: fair - willing to participate in treatment. Current Medications: Scheduled: ??? cloNIDine 0.1 mg Oral TID ??? folic acid 1 mg Oral Daily ??? thiamine 100 mg Oral Daily ??? amitriptyline 25 mg Oral Nightly ??? rOPINIRole 0.5 mg Oral Nightly ??? gabapentin 1,200 mg Oral TID ??? buprenorphine-nalOXone 2 tablet Sublingual Daily ??? methylphenidate HCl 72 mg Oral Daily ??? nicotine 14 mg Transdermal Daily And ??? Patch Verification 1 patch Transdermal BID And ??? nicotine 1 patch Transdermal Daily PRN: propranolol, nicotine polacrilex, nicotine polacrilex, hydrOXYzine, melatonin, traZODone, ibuprofen Labs: Last 24 Hours: No results found for this or any previous visit (from the past 24 hour(s)). Psychiatry Labs: Preg: No results found for: HCGQUAL, HCGQUANT Heme: Lab Results Component Value Date WBC 4.5 01/10/2017 HGB 12.8 (L) 01/10/2017 HCT 37.1 (L) 01/10/2017 PLATELET 157 01/10/2017 MCV 86.3 01/10/2017 NEUTROABS 2.47 01/10/2017 No results found for: HA1C, SEDRATE Chem: Lab Results Component Value Date NA 141 01/10/2017 K 3.8 01/10/2017 CL 101 01/10/2017 CO2 28 01/10/2017 BUN 11 01/10/2017 GLUCOSE 81 01/10/2017 Lab Results Component Value Date CALCIUM 8.8 01/10/2017 LFTs: Lab Results Component Value Date ALT 31 01/08/2017 AST 29 01/08/2017 ALKPHOS 54 01/08/2017 BILITOT 0.8 01/08/2017 Coags: No results found for: PTT, PT, INR Thyroid: No results found for: TSH, M4QIFYK, TT4 Lipids and HgbA1C: No results found for: CHLPL, HDL, CHOLHDL, LDLCHOL, LDLDIRECT, TRIG No results found for: HA1C Vit Lvls: No results found for: [id number], SFOLATE UA: No results found for: GLUCOSEU, KETONESUA, PROTEINUADIP, BLOODUADIP, LEUKOESTERUA, NITRATEUA, WBCUA (May not represent most recent UA results. See eD-H labs for more details.) Tox: No results found for: ETHANOL, ACTMNPHEN, SALICYLATE, LEAD No results found for: UDAUSCREEN Rx Lvls: No results found for: LITHIUM, CARBAMAZEPIN, VALPROATE, LAMOTRIGINE, CLOZAPINE Assessment: Dima Li Jr. is a 41 y.o. male with depression and polysubstance use ??admitted on 01/10/2017??for??apparent suicide attempt via overdose. Patient continues to deny that the overdose was a suicide attempt, that drug ingestion was done to hide drugs from law enforcement, but acknowledges that the statements he made to law enforcement and his parents could easily be interpreted as concerning for suicidal intent. He has consistently denied suicidal or homicidal ideation throughout his hospitalization. He has a place he could stay upon discharge, and expresses interest in returning to the [facility] Program to address his most recent substance use relapse. His desire to take responsibility for his life and children and his strong social supports are protectivefactors against relapse and suicide. However, relapse remains a possibility. Current Working Primary Diagnosis: Substance induced mood disorder Clinical Global Impression Severity of illness: Considering your total clinical experience with this particular population, how mentally ill is the patient at this time? 4 = Moderately ill Global improvement: Rate total improvement compared to condition at admission, how much has she changed? Moderately Improved Plan: Substance induced mood disorder with suicide attempt ?? Continue propranolol 10 mg BID for restlessness ?? Continue amitriptyline 25 mg daily ?? Continue gabapentin 1200 mg TID ?? Continue suboxone 16-2 daily ?? Continue concerta 72 mg daily ?? Continue Ropinirole 0.5 mg nightly for restless leg syndrome ?? Continue Clonidine 0.1 mg TID for anxiety (changed from TID PRN) # Disposition: -Patient ready for discharge today, [facility] and start [facility]. Additional Information: Outpatient Care: Appointment with Aguila Patton scheduled 01/18/2017 Provider Name Date Contacted By Treatment Team Psychiatric prescriber JAYLEN Acevedo 01/11/2017 Therapist Marlene Harper [facility] PCP JAYLEN Acevedo 01/11/2017 Patient Instruction/Education Provided: Patient provided verbal instructions during rounds regarding the treatment plan. I have reviewed and agree with the multidisciplinary treatment plan. Signed By: Shreyas Hernandez MS3 01/12/2017 * Plan of Care - Silvia Carrasco - 01/11/2017 5:04 PM EDT Problem: Patient Care Overview Goal: Plan of Care Review 01/11/17 1702 Coping/Psychosocial Plan Of Care Reviewed With patient Plan of Care Review Progress progress toward functional goals as expected OUTCOME EVALUATION NOTE: OUTCOME SUMMARY: Patient visible on the unit, interacting socially with peers, affect bright, smiling often, playinggames, behavior in control. patient eating well, showered, doing laundry. Patient reports [facility] will not take patient since not in active withdrawal. Patient seeking other options. Patient denies si/hi and and avh, rates depression and anxiety 0/10. Patient denies pain, offers no complaints or concerns at this time. Continue to monitor thoughts mood behaviors, notify MD of changes. PLAN MOVING FORWARD: Medication stabilization, increased coping skills INDIVIDUALIZED FALL PREVENTION INTERVENTIONS: Patient-specific fall risk factors per assessment: [current deficits]: low Assistance [level of assistance required for transfers and ambulation]: na Supervision [direct monitoring required during toileting and ADLs]: na Surveillance [continuous indirect monitoring]: q 30 minutes Patient-specific fall prevention interventions for sensory deficits provided, if applicable: na CPG GOAL OUTCOME EVALUATION: Goal: Individualization & Mutuality 01/11/17 1243 Individualization Patient Specific Preferences pt wants to know about the events that got him admitted into the hospital. Has no recollection Patient Specific Goals to get into a IOP in [facility] Patient Specific Interventions rode the exercise bike to help with his restless feelings Mutuality/Individual Preferences What Anxieties, Fears or Concerns Do You Have About Your Health or Care? I have alot of stuff to deal with back home and the sooner I can get out of here the better What Questions Do You Have About Your Health or Care? Would like someone to review events that led to his hospitalization What Information Would Help Us Give You More Personalized Care? Pt plans to stay with his parents after discharge. Has kids he sees every day Goal: Fall Prevention-Safe Patient Handling 01/11/17 1234 01/11/17 1605 Restraint Interventions Safety Promotion/Fall Prevention -- fall prevention program maintained Musculoskeletal Interventions Muscle Strengthening activity/mobility promoted -- Positioning Body Position independent -- Activity and Safety Assistive Device None -- Daily Care Interventions Self-Care Promotion independence encouraged -- Wright Fall Risk History of Falling -- 0 Secondary Diagnosis -- 15 Ambulatory Aids -- 0 Intravenous Therapy/Heparin/Saline Lock -- 0 Gait/Transferring -- 0 Mental Status -- 0 Score -- 15 OTHER Wright Fall Risk -- Low Problem: Coping, Compromised Individual (Adult,Obstetrics,Pediatric) Intervention: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 tablet 100 mg 100 mg, Oral, DAILY, First dose on Mon01/11/17 at 0900, Until Discontinued, Routine Given 01/12/2017 8:2 6 AM EDT 100 mg Given 01/11/2017 8:09 AM EDT 100 mg documented in this encounter Active and Recently Administered Medications Times are shown in EDT. Scheduled Medication Order 01/10/2017 01/11/2017 01/12/2017 amitriptyline (ELAVIL) tablet 25 mg 25 mg, Oral, NIGHTLY, First dose on Mon01/10/17 at 2100, Until Discontinued, Routine 2004 (Given - Provider: Silvia Carrasco) 2003 (Given - Provider: Silvia Carrasco) buprenorphine-nalOXone (SUBOXONE) 8-2 mg sublingual tablet 2 tablet 2 tablet, Sublingual, DAILY, First dose on Mon01/11/17 at 0900, Until Discontinued, Routine, Is patient ? No, A rapid qualitative urine drug screen (SARBJIT) has been performed within the last two days and is positive for buprenorphine. False, Name and phone number of the pharmacy that filled the most recent prescription (must be within past 30 days): Radha Gregorio [phone], Name and phone number of the authorizing provider of the outpatient prescription: [phone] Dr Jenkins 08 (Given - Provider: Fabio Rose RN) 08 (Given - Provider: Fabio Rose RN) cloNIDine (CATAPRES) tablet 0.1 mg 0.1 mg, Oral, 3 TIMES DAILY, First dose (after last modification) on Mon01/11/17 at 1500, Until Discontinued, Routine 1428 (Given - Provider: Fabio Rose RN)2002 (Given - Provider: Silvia Carrasco) 08 (Given - Provider: Fabio Rose RN) folic acid (FOLVITE) tablet 1,000 mcg 1,000 mcg (1 mg), Oral, DAILY, First dose on Mon01/11/17 at 0900, Until Discontinued, Routine 0809 (Given - Provider: Fabio Rose RN) 0826 (Given - Provider: Fabio Rose, LAUREN) gabapentin (NEURONTIN) capsule 1,200 mg 1,200 mg, Oral, 3 TIMES DAILY, First dose on Mon01/10/17 at 1545, Until Discontinued, Routine 1542 (Given - Provider: Silvia Carrasco)2004 (Given - Provider: Silvia Carrasco) 0809 (Given - Provider: Fabio Rose RN)1304 (Given - Provider: Fabio Rose RN)1500 (Not Given - Provider: Fabio Rose RN - Reason: See comment - Comment: pt took med earlier at his request)2002 (Given - Provider: Silvia Carrasco) 08 (Given - Provider: Fabio Rose RN) methylphenidate HCl (CONCERTA) CR tablet 72 mg 72 mg, Oral, DAILY, First dose on Mon01/11/17 at 0900, Until Discontinued, DO NOT CRUSH OR OPEN, Routine 08 (Given - Provider: Fabio Rose RN) 08 (Given - Provider: Fabio Rose RN) nicotine (NICODERM CQ) 14 mg/24 hr patch 14 mg(Linked Group 1) 14 mg, Transdermal, Administer over 24 Hours, DAILY, First dose on Mon01/10/17 at 1545, Until Discontinued, Routine 1542 (Given - Provider: Silvia Carrasco) 08 (Given - Provider: Fabio Rose RN) 08 (Given - Provider: Fabio Rose RN) nicotine (NICODERM CQ) 14 mg/24 hr patch Patch Removal(Linked Group 1) Transdermal, DAILY, First dose on Mon01/11/17 at 0900, Until Discontinued, Remove nicotine 14 mg/24 hr patch 09 (Patch Removed - Provider: Fabio Rose RN) 899 (Patch Removed - Provider: Fabio Rose RN) nicotine (NICODERM CQ) 14 mg/24 hr patch Patch Verification(Linked Group 1) Transdermal, 2 TIMES DAILY, First dose on Mon01/11/17 at 0900, Until Discontinued, Verify nicotine 14 mg/24 hr patch. 0900 (Patch (dose and location) verified - Provider: Fabio Rose RN)2099 (Patch (dose and location) verified - Provider: Silvia Carrasco) 0900 (Patch (dose and location) verified - Provider: Fabio Rose RN) rOPINIRole (REQUIP) tablet 0.5 mg 0.5 mg, Oral, NIGHTLY, First dose on Mon01/10/17 at 2100, Until Discontinued, Routine 2004 (Given - Provider: Silvia Carrasco) 2003 (Given - Provider: Silvia Carrasco) thiamine tablet 100 mg 100 mg, Oral, DAILY, First dose on Mon01/11/17 at 0900, Until Discontinued, Routine 808 (Given - Provider: Fabio Rose RN) 08 (Given - Provider: Fabio Rose RN) PRN Medication Order 01/10/2017 01/11/2017 01/12/2017 cloNIDine (CATAPRES) tablet 0.1 mg (CANCELED) 0.1 mg, Oral, 3 TIMES DAILY PRN, Starting on Mon01/10/17 at 1518, Until Mon01/11/17 at 1033, anxiety, Routine 154 (Given - Provider: Silvia Carrasco)2008 (Given - Provider: Silvia Carrasco) 09 (Given - Provider: Fabio Rose RN) hydrOXYzine (ATARAX) tablet 25 mg 25 mg, Oral, 3 TIMES DAILY PRN, Starting on Mon01/10/17 at 1518, Until Amaya 01/12/17 at 1613, Anxiety, Routine 191 (Given - Provider: Silvia Carrasco) ibuprofen (ADVIL;MOTRIN) tablet 600 mg 600 mg, Oral, EVERY 6 HOURS PRN, Starting on Mon01/10/17 at 1518, Until Amaya 01/12/17 at 1613, Pain, Administer orally with milk or food to minimize GI irritation. Maximum dose of 3200 mg from all sources in 24 hours, Routine melatonin tablet 3 mg 3 mg, Oral, NIGHTLY PRN, Starting on Mon01/10/17 at 1518, Until Mon01/12/17 at 1613, Sleep, Routine 2004 (Given - Provider: Silvia Carrasco) 2003 (Given - Provider: Silvia Carrasco) nicotine polacrilex (NICORETTE) gum 2 mg 2 mg, Buccal, EVERY 2 HOURS PRN, Starting on Mon01/10/17 at 1518, Until Amaya 01/12/17 at 1613, Smoking cessation, Chew gum slowly. Do not swallow. Maximum of 48 mg/day., Routine nicotine polacrilex (NICORETTE) gum 4 mg 4 mg, Buccal, EVERY 2 HOURS PRN, Starting on Mon01/10/17 at 1106, Until Amaya 01/12/17 at 1613, Smoking cessation, Chew gum slowly. Do not swallow. Maximum 48 mg/day., Routine 1231 (Given - Provider: Cathie Galvan RN)1542 (Given - Provider: Silvia Carrasco)1924 (Given - Provider: Silvia Carrasco) 0934 (Given - Provider: Fabio Rose RN)1304 (Given - Provider: Fabio Rose RN)1428 (Given - Provider: Fabio Rose RN)1915 (Given - Provider: Silvia Carrasco) 0825 (Given - Provider: Fabio Rose RN)1315 (Given - Provider: Fabio Rose RN) propranolol (INDERAL) tablet 10 mg 10 mg, Oral, 2 TIMES DAILY PRN, Starting on Mon01/11/17 at 1032, Until Mon01/12/17 at 1613, anxiety, Routine 1308 (Given - Provider: Fabio Rose RN)2004 (Given - Provider: Silvia Crarasco) traZODone (DESYREL) tablet 50 mg 50 mg, Oral, NIGHTLY PRN, Starting on Mon01/10/17 at 1518, Until Mon01/12/17 at 1613, Sleep, Routine Linked Groups Order Group 1: nicotine (NICODERM CQ) 14 mg/24 hr patch 14 mgJump to med 14 mg, Transdermal, Administer over 24 Hours, DAILY, First dose on Mon01/10/17 at 1545, Until Discontinued, Routine And nicotine (NICODERM CQ) 14 mg/24 hr patch Patch VerificationJump to med Transdermal, 2 TIMES DAILY, First dose on Mon01/11/17 at 0900, Until Discontinued, Verify nicotine 14 mg/24 hr patch. And nicotine (NICODERM CQ) 14 mg/24 hr patch Patch RemovalJump to med Transdermal, DAILY, First dose on Mon01/11/17 at 0900, Until Discontinued, Remove nicotine 14 mg/24 hr patch documented in this encounter Care Teams Condominium Manager Relationship Specialty Start Date End Date Aguila Patton [address] [place] [address] PCP - General General Internal Medicine 12/08/1609/21 documented as of this encounter
--- OUTSIDE RECORDS SUMMARY | 2024-02-19 14:48 | XMS_ITS | Encounter Summary ---
Author Organization [facility] Address [facility] [place] [address] Care Team Providers Care Manager Wireless Name Role Phone Unknown Primary Care Provider Unavailabl e Encounter Details Date Type Department Care Team (Late st Contact Info) Description 12/05/2007 Orders Only Gastroenterology at [facility] [place] [address] Machelle Ghosh MD [facility] [address] Social History Tobacco Use Types Packs/Day Years Used Date Smoking Tobacco: Never Assessed Sex and Gender Information Value Date Recorded Sex Assigned at Not on file Gender Identity Not on file Sexual Orientation Not on file documented as of this encounter Plan of Treatment Not on file documented as of this encounter Procedures Procedure Name Priority Date/Time Associated Diagnosis Comments SURGICAL PATHOLOGY REPORT Routine 12/05/2007 2:56 PM EDT documented in this encounter Results * Surgical Pathology Report (12/05/2007 2:56 PM EDT) Surgical Pathology Report [id number] ? Location: 4T The signing pathologist has (i) examined the relevant preparation(s) for the specimen(s) and (ii) rendered or confirmed the diagnosis(es). . ?Pathology Surgical Pathology Final Report Clinical Information Specimen Submitted: A - bx, liver Clinical History: PT with chronic hep C for about 6 years, assess grade and stage Clinical Diagnosis: Chronic HCV Gross Description Labeled/Fixativ e: ? Biopsy liver, formalin. Qty/Size/Weight : ?Single needle core biopsy, 2.0 x 0.1 x 0.1 cm. Sections/Proces sing: ??(T1) ??aje/EJR Microscopic Description Slides reviewed, microscopic description not recorded. Diagnosis Liver, needle biopsy showing portal lymphocytic aggregates, mild interface hepatitis and mild lobular inflammation. Trichrome stain shows portal fibrosis and focal fibrous septa. Iron stain is negative for iron deposition. The findings are consistent with chronic hepatitis C, stage 1-2/4, grade 2/4 (mild activity). CR-0 12/06/07 AAS 12/06/07 Verified by: ? Kristina VOSS, Pantera Medina ?Pathologist ?(Electronic Signature) The attending pathologist whose signature appears on this report has reviewed all diagnostic slides and has edited the gross and/or microscopic portion of the report in rendering the final pathologic diagnosis. DIEUDONNE WHITMORE 12/05/2007 2:56 PM EDT Machelle Ghosh MD PATHOLOGY/CYTOLOGY O ISABELL DIEUDONNE WHITMORE documented in this encounter Visit Diagnoses Not on filedocumented in this encounter Care Teams Manager Wireless Relationship Specialty Start Date End Date Unknown None PCP - General 09/22/20 documented as of this encounter
--- OUTSIDE RECORDS SUMMARY | 2024-02-19 14:48 | XMS_ITS | Encounter Summary ---
Author Organization [facility] Address [facility] [place] [address] Care Team Providers Care Dough Cutting Machine Operator Name Role Phone Unknown Primary Care Provider Unavailabl e Encounter Details Date Type Department Care Team (Late st Contact Info) Description 10/25/2023 11:50 AM EDT Ancillary Procedure Radiology Library at [facility] [place] [id number] Filiberto Grider MD [facility] [place] [address] [place] [address] Social History Tobacco Use Types Packs/Day Years [...] It's purpose is for storage only. Filiberto Medina Echt MD IMG FILM LIBRARY ORD ERABLES [place], [place] documented in this encounter Visit Diagnoses Not on filedocumented in this encounter Care Teams Dough Cutting Machine Operator Relationship Specialty Start Date End Date Unknown None PCP - General 09/22/20 documented as of this encounter
--- OUTSIDE RECORDS SUMMARY | 2024-02-19 14:48 | XMS_ITS | Encounter Summary ---
Author Organization [facility] [place] [address] Care Team Providers Care Pearl Technician Name Role Phone Aguila Patton Primary Care Provider [phone] Reason for Visit * Reason Onset Date Comments Prior Authorization 01/10/2017 AUTH ON FILE - NO END DATE GIVEN - REVIEW AND/OR D/C SUMMARY WITHIN 5 DAYS Encounter Details Date Type Department Care Team (Late st Contact Info) Description 01/10/2017 [place] [address] Merna Luo Prior Authorization (AUTH ON FILE - NO END DATE GIVEN - REVIEW AND/OR D/C SUMMARY WITHIN 5 DAYS) Social History Tobacco Use Types Packs/Day Years [...] encounter Miscellaneous Notes * Telephone Encounter - Merna Luo - 01/10/2017 3:05 PM EDT Insurance Verified: [place] EPIC & FAX Insurance Effective To/From Dates: DOS OF 01/10/2017 Third Republican Vendor: NO Authorization number: [id number] Validity Dates: 01/10/2017 - NO END DATE GIVEN Date of Service: 01/10/2017 CPT/Description: NONE - REZA PSYCH ADMIT ICD-10/Description: F19.94 SUB IND MOOD DIS Patient Class: PSYCH IPI How many days approved: NO END DATE GIVEN Call Reference Number: [id number] Spoke With: N/A - REC FAX BACK Phone Number: UR Contact Information UR Name Phone Number Additional Clinical Required Y/N?: YES - REVIEW AND/OR D/C SUMMARY WITHIN 5 DAYS Patient Class Change Requirements: N/A REC FAX BACK WITH AUTH # [id number] WITH START DATE OF 01/10/2017 AND NO END DATE GIVEN. A REVIEW AND/OR D/C SUMMARY WILL NEED TO BE FAXED WITHIN 5 DAYS TO: [phone]. documented in this encounter Plan of Treatment Not on file documented as of this encounter Visit Diagnoses Not on filedocumented in this encounter Care Teams Pearl Technician Relationship Specialty Start Date End Date Aguila Patton PA [address] [place] [address] PCP - General General Internal Medicine 12/08/1609/21 documented as of this encounter
--- OUTSIDE RECORDS SUMMARY | 2024-02-19 14:48 | XMS_ITS | Encounter Summary ---
[place] [address] Care Team Providers Care Insurance Sales Assistant Name Role Phone Jenifer Velásquez APRN Primary Care Provider [phone] Encounter Details Date Type Department Care Team (Late st Contact Info) Description 06/22/2015 Orders [place] [phone] Kacey Dillon Social History Tobacco Use Types Packs/Day Years Used Date Smoking Tobacco: Never Assessed Sex and Gender Information Value Date Recorded Sex Assigned at Not on file Gender Identity Not on file Sexual Orientation Not on file documented as of this encounter Plan of Treatment Not on file documented as of this encounter Visit Diagnoses Not on filedocumented in this encounter Care Teams Insurance Sales Assistant Relationship Specialty Start Date End Date Jenifer Velásquez APRN PCP - General 02/09/10 12/07/16 documented as of this encounter
--- OUTSIDE RECORDS SUMMARY | 2024-02-19 14:48 | XMS_ITS | Clinical Summary ---
Author Organization [employer] Address [address] [place] [address] Care Team Providers Care Digital Engineer Name Role Phone Per Patient, No Pcp MD Primary Care Provider Cathryn vailable Allergies No known active allergies Social History Tobacco Use Types Packs/Day Years Used Date Smoking Tobacco: Never Assessed Sex and Gender Information Value Date Recorded Sex Assigned at Not on file Gender Identity Not on file Sexual Orientation Not on file Last Filed Vital Signs Vital Sign Reading [...] Mass Index 23.09 09/22/2023 2:21 PM CDT Plan of Treatment Health Maintenance Due Date Last Done Comments COLON CANCER SCREENING 3 LINK [place] COLNASIM 1974 COLONOSCOPY 1974 [address] CANCER SCREENING 1974 CT COLONOGRAPHY (5 YEARS) 1974 DEPRESSION SCREENING 1974 FOBT/FIT (1 YEAR DEFAULT) 1974 HEPATITIS C SCREENING 1974 SIGMOIDOSCOPY (5 YEAR DEFAULT) 1974 URINE MICROALBUMIN/CR + GFR 1984 HIV SCREENING 15-65 1989 TDAP/TD VACCINES ADULT 1996 INFLUENZA VACCINE 9 YRS THRU 64 YRS 10/19/2023 COVID-19 Vaccine (2023-2 5 season) 2023 PNEUMOCOCCAL VACCINES 0-64 Aged Out N o longer eligible based on patient's age to complete this topic Care Teams Digital Engineer Relationship Specialty Start Date End Date Per Patient, No Pcp, PCP - General Family Medicine 09/22/23
--- OUTSIDE RECORDS SUMMARY | 2024-02-19 14:48 | XMS_ITS | Encounter Summary ---
Author Organization [facility] Address [facility] [place] [address] Care Team Providers Care Packing Shed Supervisor Name Role Phone Unknown Primary Care Provider Unavailabl e Encounter Details Date Type Department Care Team (Late st Contact Info) Description 10/25/2023 11:45 AM EDT Ancillary Procedure Radiology Library at [facility] [place] [id number] Filiberto Grider MD [facility] [place] [address] Social History Tobacco Use Types Packs/Day Years [...] Echt MD IMG FILM LIBRARY ORD ERABLES [place], [place] documented in this encounter Visit Diagnoses Not on filedocumented in this encounter Care Teams Packing Shed Supervisor Relationship Specialty Start Date End Date Unknown None PCP - General 09/22/20 documented as of this encounter
--- OUTSIDE RECORDS SUMMARY | 2024-02-19 14:48 | XMS_ITS | Encounter Summary ---
Author Organization [facility] Address [facility] [place] [address] Care Team Providers Care Mixing Machine Attendant Name Role Phone Aguila Patton Primary Care Provider [phone] Reason for Referral * Consultation (Routine) - Closed Specialty Diagnoses / Procedures Referred By Contwilbert t Referred To Contact Gastroenterology Diagnoses Chronic hepatitis C without hepatic coma Laz Riley MD [facility] [place] [address] [facility] [place] [address] [place] [address] Referral ID Status Reason Start Date Expiration Date V isits Requested Visits Authorized [id number] Closed Consult, Test & Treat 02/07/2017 02/07/2018 1 1 Encounter Details Date Type Department Care Team (Late st Contact Info) Description 02/07/2017 Orders Only [place] [address] Sonam Esqueda RN [facility] [place] [address] Chronic hepatitis C without hepatic coma Social History Tobacco Use Types Packs/Day Years [...] as of this encounter Plan of Treatment Scheduled Referrals Name Type Priority Associated Diagnoses Order Schedule Referral to Gastroenterology Outpatient Referral Routine Chronic hepatitis C without hepatic coma Ordered: 02/07/2017 documented as of this encounter Visit Diagnoses Diagnosis Chronic hepatitis C without hepatic coma documented in this encounter Care Teams Mixing Machine Attendant Relationship Specialty Start Date End Date Aguila Patton PA [address] [place] [address] PCP - General General Internal Medicine 12/08/1609/21 documented as of this encounter
--- OUTSIDE RECORDS SUMMARY | 2024-02-19 14:48 | XMS_ITS | Clinical Summary ---
Author Organization [facility] Address [facility] [place] [address] Care Team Providers Care Sexual Assault Response Coordinator Name Role Phone Unknown Primary Care Provider Unavailabl e Allergies No known active allergies Medications Medication Sig Dispensed Refills Start Date End Date Status gabapentin (NEURONTIN) 600 mg Tablet Take 1,200 mg by mouth 3 times daily. 0 11/30/2016 Active amitriptyline (ELAVIL) 25 mg Tablet Take 25 mg by mouth nightly. 0 07/13/2016 Active rOPINIRole (REQUIP) 0.5 mg Tablet Take 0.5 mg by mouth nightly. 0 10/31/2016 Active folic acid (FOLVITE) 1 mg Tablet Take 1 tablet by mouth daily. 90 tablet 3 01/11/2017 Active nicotine polacrilex (NICORETTE) 2 mg Gum Take 1 each by mouth every 2 hours as needed for Smoking cessation. 01/10/2017 Active thiamine 50 mg Tablet Take 2 tablets by mouth daily. 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 Rectal foreign body, initial encounter 7 Drug-induced encephalopathy 01/07/2017 At high risk for ineffective coping 01/07/2017 At risk for intentional self-harm 01/07/2017 At risk for elopement 01/07/2017 Intentional polysubstance overdose 01/06/2017 Resolved Problems Problem Noted Date Diagnosed Date Resolved Date On mechanically assisted ventilation 01/07/2017 01/08/2017 Immunizations Name Administration Dates Next Due Hepatitis A/B ([employer]) 05/23/2005 Social History Tobacco Use Types Packs/Day Years [...] 12 01/12/2017 8:04 AM EDT Oxygen Saturation 99% 01/10/2017 7:51 AM EDT Inhaled Oxygen Concentration - - Weight 91.5 kg (201 lb 11.5 oz) 017 10:19 AM EDT Height 185.4 cm (6' 1) 01/10/2017 10:1 9 AM EDT Body Mass Index 26.61 01/10/2017 10:19 AM EDT Plan of Treatment Health Maintenance Due Date Last Done Comments CT Colonography 1974 Colonoscopy 1974 Colorectal Cancer Screening 1974 FIT DNA 1974 FIT 1974 Sigmoidoscopy (10 year) with FIT yearly 1974 Sigmoidoscopy 1974 HIV screen 1992 Hepatitis C Screening 1992 Lipid Screening 1992 Tetanus/Diphtheria/Pertussis Vaccines (1 - Tdap) 1993 Hepatitis B vaccine (0-59 yr s) (2) 06/20/2005 05/23/2005 Covid-19 Vaccine ( - 2023-2 5 season) 2023 Influenza (Flu) vaccine (1 o f 1 - Influenza standard series) 11/19/2023 Diabetes Screening (HgbA1C o r Glucose) Discontinued 01/10/2017, 01/09/2017, 01/08/2017, Additional history exists Procedures Procedure Name Priority Date/Time Associated Diagnosis Comments BASIC METABOLIC PANEL Routine 01/10/2017 6:55 AM EDT from Last 3 Months or Most Recently Relevant to Health Maintenance Results * (ABNORMAL) Basic Metabolic Panel (non-fasting) (01/10/2017 6:55 AM EDT) Glucose 81 65 - 199 mg/dL [facility] Comment:Diabetes: >=200 mg/d L plus symptoms Blood Urea Nitrogen 11 10 - 20 mg/dL [facility] Creatinine 0.73(L) 0.80 - 1.50 mg/dL [facility] Sodium 141 135 - 145 mmol/L [facility] Potassium 3.8 3.5 - 5.0 mmol/L [facility] Comment: Please note: ??Patients with WBC >100,000 may have falsely elevated Potassium levels. ??For accurate Potassium quantification in these patients send serum separator tube (gold top) for subsequent determinations. ??Contact the Clinical Chemistry Laboratory if there are any questions. Chloride 101 98 - 107 mmol/L [facility] Carbon Dioxide 28 22 - 31 mmol/L [facility] Anion Gap 12 5 - 15 mmol/L [facility] Calcium 8.8 8.5 - 10.5 mg/dL [facility] Est Glomerular Filtration Rate >60 >=60 [facility] Comment: The reported eGFR should be multiplied by 1.2 for patients. The MDRD is not an appropriate measure of renal function for patients with body mass extremes or in patients with acute kidney failure. http://CelePost.GillBus/DHnkdep [email or web address]://CelePost.GillBus/DHMCnkf Blood specimen (specimen) 01/10/2017 6:55 AM EDT 01/10/2017 7:05 AM EDT Narrative Resulting Agency Comment Spec In [facility] [place] Vanessa MD CHEMISTRY ORDERABLES [facility] [place] [address] from Last 3 Months or Most Recently Relevant to Health Maintenance Advance Directives * Full Code (Latest Code Status on File) Date Activated Date Inactivated Comments 01/10/2017 3:09 PM 01/12/2017 4:18 PM Question Answer Comments Does patient have capacity to make decision: Yes * Full Code Date Activated Date Inactivated Comments 01/06/2017 10:02 PM 01/10/2017 11:35 AM Question Answer Comments Does patient have capacity to make decision: No Code Status decision being made per: Attending o f Record Care Teams Sexual Assault Response Coordinator Relationship Specialty Start Date End Date Unknown None PCP - General 09/22/20
--- OUTSIDE RECORDS SUMMARY | 2024-02-19 14:48 | XMS_ITS | Encounter Summary ---
Author Organization Formerly [facility] Address [facility] [place] [address] Care Team Providers Care Still Operator Helper Name Role Phone Jenifer Velásquez RENAY Primary Care Provider [phone] Encounter Details Date Type Department Care Team (Late st Contact Info) Description 11/21/2014 Orders Only Pediatric [place] [phone] Haroon Hay MD [facility] [place] [address] Social History Tobacco Use Types Packs/Day Years [...] FILM LIBRARY STORAGE ONLY MR SPINE Routine 11/21/2014 3:00 PM EDT documented in this encounter Results * Film Library- Storage only MR Spine (11/21/2014 3:00 PM EDT) Anatomical Region Laterality Modality Other 11/21/2014 3:00 PM EDT Narrative 11/21/2014 3:00 PM EDT This is a Non-reportable exam Procedure Note IVAN, UNSIGNED REPORT - 11/21/2014 This is a Non-reportable exam Haroon Hay MD [facility] FILM LIBRARY ORD ERABLES documented in this encounter Visit Diagnoses Not on filedocumented in this encounter Care Teams Still Operator Helper Relationship Specialty Start Date End Date Jenifer Velásquez APRN PCP - General 02/09/10 12/07/16 documented as of this encounter
--- OUTSIDE RECORDS SUMMARY | 2024-02-19 14:48 | XMS_ITS | Encounter Summary ---
Author Organization [facility] Address [address] [place] [address] Care Team Providers Care Radiation Engineer Name Role Phone Unavailable Primary Care Provider Unavailabl e Encounter Details Date Type Department Care Team (Late st Contact Info) Description 12/07/2014 Results Only [facility] [phone] Ankur Dawkins MD [address] [place] [address] Social History Tobacco Use Types Packs/Day Years [...] Procedure Name Priority Date/Time Associated Diagnosis Comments IDENTIFY ANAEROBE Routine 12/07/2014 20: 08 EDT documented in this encounter Results * IDENTIFY ANAEROBE (12/07/2014 20:08 EDT) Result Aerobic gram positive bacilli 12/14/2014 11:27 EDT [facility] BLOOD SPECIMEN / Unknown 12/07/2014 20:08 EDT 12/12/2014 20:08 EDT us Ankur Dawkins MD MICROBIOLOGY - GENERAL ORDER GEOFFREY Final Result [facility] [address] [place] [address] documented in this encounter Visit Diagnoses Not on filedocumented in this encounter
--- OUTSIDE RECORDS SUMMARY | 2024-02-19 14:48 | XMS_ITS | Encounter Summary ---
Author Organization [facility] Address [facility] [place] [address] Care Team Providers Care Leave Manager Name Role Phone Jenifer Velásquez APRN Primary Care Provider [phone] Encounter Details Date Type Department Care Team (Late st Contact Info) Description 06/18/2015 Orders Only [place] [address] Aleah Dawkins APRN [facility] [place] [address] Chronic hepatitis C without hepatic coma Social [...] coma documented in this encounter Care Teams Leave Manager Relationship Specialty Start Date End Date Jenifer Velásquez APRN PCP - General 02/09/10 12/07/16 documented as of this encounter
--- OUTSIDE RECORDS SUMMARY | 2024-02-19 14:48 | XMS_ITS | Encounter Summary ---
Author Organization [facility] Address [facility] [place] [address] Care Team Providers Care Thermal Spray Operator Name Role Phone Unknown Primary Care Provider Unavailabl e Encounter Details Date Type Department Care Team (Late st Contact Info) Description 10/25/2023 11:40 AM EDT Ancillary Procedure Radiology Library at [facility] [place] [phone] Filiberto Grider MD [facility] [place] [address] Social History Tobacco Use Types Packs/Day Years [...] Echt MD IMG FILM LIBRARY ORD ERABLES [place], [place] documented in this encounter Visit Diagnoses Not on filedocumented in this encounter Care Teams Thermal Spray Operator Relationship Specialty Start Date End Date Unknown None PCP - General 09/22/20 documented as of this encounter
--- OUTSIDE RECORDS SUMMARY | 2024-02-19 14:48 | XMS_ITS | Encounter Summary ---
Author Organization [facility] Address [facility] [place] [address] Care Team Providers Care Soil Field Technician Name Role Phone Unknown Primary Care Provider Unavailabl e Encounter Details Date Type Department Care Team (Late st Contact Info) Description 10/25/2023 Interpretation Only Radiology Library at [facility] [place] [phone] Filiberto Grider MD [facility] [place] [place] [address] Social History Tobacco Use Types Packs/Day Years [...] Grider MD IMG FILM LIBRARY ORD ERABLES [place], [place] documented in this encounter Visit Diagnoses Not on filedocumented in this encounter Care Teams Soil Field Technician Relationship Specialty Start Date End Date Unknown None PCP - General 09/22/20 documented as of this encounter
--- OUTSIDE RECORDS SUMMARY | 2024-02-19 14:48 | XMS_ITS | Encounter Summary ---
Author Organization [employer] Address [address] [place] [address] Care Team Providers Care Golf Course Keeper Name Role Phone Per Patient, No Pcp MD Primary Care Provider Cathryn vailable Encounter Details Date Type Department Care Team (Latest Contact Info) Description 09/22/2023 Travel Social History Tobacco Use Types Packs/Day Years Used Date Smoking Tobacco: Never Assessed Sex and Gender Information Value Date Recorded Sex Assigned at Not on file Gender Identity Not on file Sexual Orientation Not on file documented as of this encounter Plan of Treatment Not on file documented as of this encounter Visit Diagnoses Not on filedocumented in this encounter Additional Health Concerns Infection Onset Date Last Indicated Resolved Time ESBL (Extended Spectrum Beta-Lactamase) 11/16/2022 05/11/2023 09/25/2023 11:26 AM CDT documented as of this encounter Care Teams Golf Course Keeper Relationship Specialty Start Date End Date Per Patient, No Pcp, PCP - General Family Medicine 09/22/23 documented as of this encounter
--- OUTSIDE RECORDS SUMMARY | 2024-02-19 14:48 | XMS_ITS | Encounter Summary ---
Author Organization Former[facility] Address [facility] [place] [address] Care Team Providers Care Dean Name Role Phone Unknown Primary Care Provider Unavailabl e Encounter Details Date Type Department Care Team (Late st Contact Info) Description 10/25/2023 Telephone [place] [phone] Erik Ott MD [facility] [place] [address] Social History Tobacco Use Types Packs/Day Years [...] encounter Miscellaneous Notes * Telephone Encounter - Erik Ott MD - 10/25/2023 5:49 PM EDT [facility] Telephone Consult Note Date: 10/25/23 Patient: Dima Li Jr. : 1975 Called by OSH provider regarding above patient, 47 y.o. male reportedly Hx active DUD presenting febrile with back pain, bilateral shoulder abscesses, changes in posture and CT concerning for Mild paravetrebral enhancement and T9- T12 erosive disc osteo. CRP/ESR. Neuro intact. Blood cx, UA pending. Started on vanc/zosyn. MRI wwo could not be performed due to Inbeded needle deltoid. We recommended transfer to our ED for further evaluation/ management but there is no capacity [facility]. We recommended transfer to the nearest facility with nsgy capabilities Plan/Recs: -transfer to our ED or to the nearest facility with nsgy capabilities if no capacity -PVR -Excision of Inbeded needle deltoid and MRI total spine wwo -Continue IV abx -evaluation for endocarditis -workup and treatment of infectious burden with potential CT guided biopsy -IR and ID consults. -trend ESR/CRP -bed rest -spine precautions -Flat or whatever level he is comfortable -PVR -preop stratification risk Case discussed with Dr. Hung PGY-7, neurosurgery chief resident. Erik Ott MD [facility] 10/25/2023 5:50 PM documented in this encounter Plan of Treatment Not on file documented as of this encounter Visit Diagnoses Not on filedocumented in this encounter Care Teams Dean Relationship Specialty Start Date End Date Unknown None PCP - General 09/22/20 documented as of this encounter
--- OUTSIDE RECORDS SUMMARY | 2024-02-19 14:49 | XMS_ITS | Encounter Summary ---
Author Organization [employer] Address [address] [place] [address] Care Team Providers Care Sanding Line Operator Name Role Phone Unavailable Primary Care Provider Unavailabl e Encounter Details Date Type Department Care Team (Latest Contact Info) Description 03/09/2023 2:06 AM [facility] - 03/09/2023 4:30 AM [facility] Hospital Encounter [facility] [address] [place] [address] Provider, [facility] [address] [place] [address] Essential (primary) hypertension; Low back pain, unspecified; Nicotine dependence, unspecified, uncomplicated; Unspecified viral hepatitis C without hepatic coma; Cutaneous abscess of left upper limb; Opioid use, unspecified, uncomplicated Social History Tobacco Use Types Packs/Day Years Used Date Smoking Tobacco: Never Assessed Sex and Gender Information Value Date Recorded Sex Assigned at Not on file Gender Identity Not on file Sexual Orientation Not on file documented as of this encounter Plan of Treatment Not on file documented as of this encounter Visit Diagnoses Diagnosis Essential (primary) hypertension Unspecified essential hypertension Low back pain, unspecified Nicotine dependence, unspecified, uncomplicated Unspecified viral hepatitis C without hepatic coma Cutaneous abscess of left upper limb Opioid use, unspecified, uncomplicated documented in this encounter
--- OUTSIDE RECORDS SUMMARY | 2024-02-19 14:49 | XMS_ITS | Encounter Summary ---
Author Organization [facility] Address [address] [place] [address] Care Team Providers Care Marking Stitcher Name Role Phone Unavailable Primary Care Provider Unavailabl e Encounter Details Date Type Department Care Team (Late st Contact Info) Description 09/10/2018 Conversion Encounter [facility] [address] [place] [address] Provider, [facility] [address] [place] [address] Social History Tobacco Use Types Packs/Day Years Used Date Smoking Tobacco: Never Assessed Sex and Gender Information Value Date Recorded Sex Assigned at Not on file Gender Identity Not on file Sexual Orientation Not on file documented as of this encounter Plan of Treatment Not on file documented as of this encounter Procedures Procedure Name Priority Date/Time Associated Diagnosis Comments PATHOLOGY HISTORICAL CASE-LEGACY Routine 09/10/2018 12:00 AM CDT documented in this encounter Results * Pathology Historical Case-Legacy (09/10/2018 12:00 AM CDT) [facility] FINAL DIAGNOSIS Final Diagnosis: LEFT GROIN DEBRIDEMENT: * ??INFLAMMATION AND NECROSIS CONSISTENT WITH DEBRIDEMENT TISSUE. [id number] - 2 Dictated By: Emiliano Thurston MD ?? Date: Edited: [id number] - [id number] [facility] LAB CONVERSION [facility] CASE DATA Gross Description: The specimen labeled left groin debridement is a 2 x 0.9 x 0.3 cm portion of tissue with inflammatory necrotic changes. ??It is entirely submitted in one cassette. ?? (gram, PAS, controls reviewed - acceptable). Dictated By: Emiliano Thurston MD ?? Date: Edited: [id number] - [id number] Medical Codes: V2K467 - Soft tissues, N [id number] GA101 - Inguinal region Left SQ1213 GC011 - Inguinal region Compatibl e with [id number] V49525 - Inguinal region Necrosis, NOS DI9621 L59422 - Inguinal region Inflammat ion, N [id number] - Inguinal region Debrideme nt, NO Microscopic Description: Sections reveal inflammation and necrosis. Dictated By: Emiliano Thurston MD ?? Date: Edited: [id number] - [id number] Reason for Visit: ABSCESS OF GROIN,LEFT,IV DRUG USER Procedures: Procedures: Procedures: Gram Stain Gross and Microscopic - Lev 3 Periodic Acid Kristin Edited: [id number] - [id number] Signed By: Emiliano Thurston MD ?? Date: [id number] Tissue: Soft tissues, NOS DEBRIDEMENT ABSCESS LEFT GROIN. Edited: [id number] - [id number] [facility] CONVERSION Abscess 09/10/2018 Historical Provider PATHOLOGY/CYTOLOGY O RDERABLES [facility] CON[facility] documented in this encounter Visit Diagnoses Not on filedocumented in this encounter
--- OUTSIDE RECORDS SUMMARY | 2024-02-19 14:49 | XMS_ITS | Encounter Summary ---
Author Organization [facility] Address [address] [place] [address] Care Team Providers Care Hard Metals Hand Engraver Name Role Phone Unavailable Primary Care Provider Unavailabl e Encounter Details Date Type Department Care Team (Latest Contact Info) Description 09/05/2021 6:16 PM CDT - 09/05/2021 11:12 PM CDT Hospital Encounter [facility] [address] [place] [address] Provider, [facility] [address] [place] [address] Poisoning by heroin, accidental (unintentional), initial encounter (HC Category) Social History Tobacco Use Types Packs/Day Years [...] Diagnosis Comments XR CHEST XRAY 1 VW Routine 09/05/2021 6: 57 PM CDT Poisoning by heroin, accidental (unintentional), initial encounter (HC Category) COMPLETE BLOOD COUNT WITH DIFFERENTIAL Routine 09/05/2021 6:25 PM CDT CK Routine 09/05/2021 6:25 PM CDT AMMONIA Routine 09/05/2021 6:25 PM CDT ETHANOL, SERUM/PLASMA Routine 09/05/2021 6:25 PM CDT ACETAMINOPHEN LEVEL Routine 09/05/2021 6 :25 PM CDT SALICYLATE LEVEL Routine 09/05/2021 6:25 PM CDT COMPREHENSIVE METABOLIC PANEL Routine 09/05/2021 6:25 PM CDT documented in this encounter Results * XR Chest X-ray 1v (09/05/2021 6:57 PM CDT) Anatomical Region Laterality Modality Chest Radiographic Marci ging 09/05/2021 6:23 PM CDT Impressions 09/05/2021 7:49 PM CDT No acute intrathoracic abnormality. Narrative 09/05/2021 7:49 PM CDT CLINICAL HISTORY: Shortness of breath COMPARISON: None TECHNIQUE: Single frontal radiograph of the chest FINDINGS: Low lung volumes. No consolidation, pleural effusion, pulmonary edema. No pneumothorax. Normal cardiomediastinal silhouette. No aggressive osseous lesions. Procedure Note Provider, Historical - 04/28/2023 CLINICAL HISTORY: Shortness of breath COMPARISON: None TECHNIQUE: Single frontal radiograph of the chest FINDINGS: Low lung volumes. No consolidation, pleural effusion, pulmonary edema. No pneumothorax. Normal cardiomediastinal silhouette. No aggressiveosseous lesions. IMPRESSION: No acute intrathoracic abnormality. Kirk Bee DO G DIAGNOSTIC IMAGI NG ORDERABLES * Ethanol (09/05/2021 6:25 PM CDT) Pathologist [facility] ETHANOL <10 0 - 50 mg/dL [facility] CONVERSION 09/05/2021 6:25 PM CDT Kirk Bee DO LAB BLOOD ORDERABLES [facility] * Ammonia (09/05/2021 6:25 PM CDT) Pathologist [facility] AMMONIA 48 18 - 72 umol/L [facility] CONVERSION 09/05/2021 6:25 PM CDT Kirk Bee DO LAB BLOOD ORDERABLES Performing Organization Address [facility] de Phone Number [facility] CONVERSION * (ABNORMAL) Salicylate Level (09/05/2021 6:25 PM CDT) [facility] SAL[facility] <5.0(L) 15.0 - 30.0 mg/dL [facility] CON[facility] Comment: Salicylate interpretation: Therapeutic Range: 15.0 - 30.0 mg/dL Toxic Levels: ?> 30.0 mg/dL Lethal Levels: ? > 70.0 mg/dL ? Dosing Information should be verified in the Medical Record to evaluate results in relation to therapeutic range. 09/05/2021 6:25 PM CDT Kirk Bee DO LAB BLOOD ORDERABLES Performing Organization Address [facility] de Phone Number [facility] CONVERSION * (ABNORMAL) Acetaminophen Level (09/05/2021 6:25 PM CDT) [facility] ACETAMINOPHEN <3.0(L) 10 - 30 ug/mL [facility] CONVERSION Comment: Dosing Information should be verified in the Medical Record to evaluate results in relation to therapeutic range. 09/05/2021 6:25 PM CDT Kirk Bee DO LAB BLOOD ORDERABLES Performing Organization Address [facility] de Phone Number [facility] CONVERSION * (ABNORMAL) Creatine Kinase (09/05/2021 6:25 PM CDT) [facility] CK (CREATINE KINASE) 1,531(H) 30 - 200 U/L [facility] CONVERSION 09/05/2021 6:25 PM CDT Kirk Bee DO LAB BLOOD ORDERABLES [facility] * (ABNORMAL) Comprehensive Metabolic Panel (09/05/2021 6:25 PM CDT) Pathologist [facility] SODIUM 142 136 - 145 mmol/L [facility] CON[facility] POTASSIUM 3.1(L) 3.5 - 5.1 mmol/L [facility] CONVERSION [facility] CHLORIDE 101 98 - 107 mmol/L [facility] CON[facility] CO2 24 22 - 29 mmol/L [facility] CON[facility] ANION GAP 17.0 6 - 18 mmol/L [facility] CON[facility] BUN 22(H) 8.9 - 20.6 mg/dL [facility] CON[facility] CREATININE 1.3 0.7 - 1.3 mg/dL [facility] CON[facility] EST GLOMERULAR FILTRATION RATE 63 >60 [facility] CON[facility] Comment: Reporting Units: mL/min/1.73m2 (MDRD Equation) If patient is -Lithuanian, mulitply result by 1.21. Stages of chronic kidney disease Stage Description ?GFR G1 ?Normal ? 90 and greater G2 ?Mildly decreased ? 60-89 G3a ?? Mildly to Moderately decreased ?? 45-59 G3b ?? Moderately to severely decreased 30-44 G4 ?Severely decreased ? 15-29 G5 ?Kidney failure ? <15 (or dialysis) Note: Stages G1 and G2 have a low risk of CKD in the absence of other kidney disease markers. Please refer to the National Kidney Foundation website for additional information ( www.kidney.org). [facility] GLUCOSE 232(H) 70 - 105 mg/dL [facility] CON[facility] CALCIUM 8.6 8.4 - 10.2 mg/dL [facility] CON[facility] BILIRUBIN TOTAL 0.7 0.2 - 1.2 mg/dL [facility] CON[facility] AST / SGOT 138(H) 5 - 34 U/L [facility] CON[facility] ALT / SGPT 72(H) 0 - 55 U/L [facility] CON[facility] TOTAL PROTEIN 7.2 6.4 - 8.3 g/dL [facility] CON[facility] ALBUMIN 3.5 3.5 - 5.0 g/dL [facility] CON[facility] ALKALINE PHOSPHATASE 188(H) 40 - 150 U/L [facility] CON[facility] Blood 09/05/2021 6:25 PM CDT Kirk Bee DO LAB BLOOD ORDERABLES [facility] * (ABNORMAL) Complete Blood Count with Differential (09/05/2021 6:25 PM CDT) [facility] WBC 2.8(L) 4.8 - 10.8 10*3/uL [facility] CON[facility] RED CELL COUNT 4.13(L) 4.70 - 6.10 10*6/uL [facility] CON[facility] HEMOGLOBIN 13.0(L) 14.0 - 18.0 g/dL [facility] CON[facility] HEMATOCRIT 40.0(L) 42.0 - 52.0 % [facility] CON[facility] MEAN CORPUSCULAR VOLUME 96.9(H) 80.0 - 94.0 fL [facility] CONVERSION [facility] MEAN CORPUSCULAR HGB 31.5 26.0 - 34.0 pg [facility] MEAN CORPUSCULAR HGB CONC 32.5 31.0 - 37.0 g/dL [facility] RED CELL DISTRIBUTION WIDTH 49.0(H) 35.1 - 43.9 fL [facility] PLATELET COUNT 202 130 - 400 10*3/uL [facility] CON[facility] MEAN PLATELET VOLUME 9.5 7.4 - 10.4 fL [facility] NEUTROPHILS % 59.6 40.0 - 78.0 % [facility] LYMPHOCYTES % 27.3 15.0 - 48.0 % [facility] MONOCYTES % 9.5 0.0 - 12.0 % [facility] EOSINOPHILS % 2.5 0.0 - 7.0 % [facility] BASOPHILS % 1.1 0.0 - 3.0 % [facility] NEUTROPHILS # 1.64(L) 1.9 - 8.0 10*3/uL [facility] LYMPHOCYTES # 0.75(L) 0.9 - 4.5 10*3/uL [facility] MONOCYTES # 0.26 0.15 - 1.10 10*3/uL [facility] EOSINOPHILS # 0.07 0.00 - 1.01 10*3/uL [facility] BASOPHILS # 0.03 0.00 - 0.30 10*3/uL [facility] MANUAL DIFF? No [facility] ADD MORPHOLOGY No [facility] REPORT AUTODIFF? Yes [facility] RBC MORPHOLOGY INSTRUMENT Normal [facility] PLATELET INSTRUMENT Adequate [facility] Blood 09/05/2021 6:25 PM CDT Kirk Bee DO LAB BLOOD ORDERABLES [facility] documented in this encounter Visit Diagnoses Diagnosis Poisoning by heroin, accidental (unintentional), initial encounter (HC Category) documented in this encounter
--- OUTSIDE RECORDS SUMMARY | 2024-02-19 14:49 | XMS_ITS | Encounter Summary ---
Author Organization [employer] [email or web address] Address [address] [place] [address] Care Team Providers Care Endoscopic Technician Name Role Phone Unavailable Primary Care Provider Unavailabl e Encounter Details Date Type Department Care Team (Late st Contact Info) Description 07/28/2018 Conversion Encounter [facility] [address] [place] [address] Corrine Valiente, ROLLING ATTENDANT [address] [place] [address] Dizziness and giddiness Social History Tobacco Use Types Packs/Day Years Used Date Smoking Tobacco: Never Assessed Sex and Gender Information Value Date Recorded Sex Assigned at Not on file Gender Identity Not on file Sexual Orientation Not on file documented as of this encounter Plan of Treatment Not on file documented as of this encounter Procedures Procedure Name Priority Date/Time Associated Diagnosis Comments XR CHEST 2 VIEWS Routine 07/28/2018 4:05 PM CDT Dizziness and giddiness documented in this encounter Results * X-ray chest 2 views (07/28/2018 4:05 PM CDT) Anatomical Region Laterality Modality Chest Radiographic Marci ging 07/28/2018 3:18 PM CDT Impressions 07/28/2018 4:16 PM CDT No acute pulmonary disease. Station: ??[id number] Narrative 07/28/2018 4:16 PM CDT HISTORY: ??Chest pain COMPARISON: ??07/02/2018. TECHNIQUE: ??Two views, PA and lateral, of the chest were performed. FINDINGS: HEART AND MEDIASTINUM: ??Normal. LAUREN: ??Not enlarged. LUNGS: ??Well aerated and clear. PLEURA: ??Normal. OTHER: ??Mild wedge deformities several vertebral bodies in the midthoracic region with mild spondylosis. Procedure Note Maurice Belle MD - 04/28/2023 HISTORY: Chest pain COMPARISON: 07/02/2018. TECHNIQUE: Two views, PA and lateral, of the chest were performed. FINDINGS: HEART AND MEDIASTINUM: Normal. LAUREN: Not enlarged. LUNGS: Well aerated and clear. PLEURA: Normal. OTHER: Mild wedge deformities several vertebral bodies in themidthoracic region with mild spondylosis. IMPRESSION: No acute pulmonary disease. Station: [id number] Corrine Valiente ROLLING ATTENDANT IMG DIAGNOSTI C IMAGING ORDERABLES documented in this encounter Visit Diagnoses Diagnosis Dizziness and giddiness documented in this encounter
--- OUTSIDE RECORDS SUMMARY | 2024-02-19 14:49 | XMS_ITS | Encounter Summary ---
Author Organization [employer] Address [address] [place] [address] Care Team Providers Care Methods Examiner Name Role Phone Unavailable Primary Care Provider Unavailabl e Encounter Details Date Type Department Care Team (Latest Contact Info) Description 04/24/2023 2:24 AM NEUROSURGERY RESEARCH DIRECTOR - 04/24/2023 2:25 AM [facility] Hospital Encounter [facility] [address] [place] [address] Provider, Historical [address] [place] [address] Essential (primary) hypertension; Other chronic pain; Personal history of other infectious and parasitic diseases; Opioid abuse, uncomplicated (HC Category); Procedure and treatment not carried out because of patient's decision for unspecified reasons; Low back pain, unspecified Social History Tobacco Use Types Packs/Day Years Used Date Smoking Tobacco: Never Assessed Sex and Gender Information Value Date Recorded Sex Assigned at Not on file Gender Identity Not on file Sexual Orientation Not on file documented as of this encounter Plan of Treatment Not on file documented as of this encounter Visit Diagnoses Diagnosis Essential (primary) hypertension Unspecified essential hypertension Other chronic pain Personal history of other infectious and parasitic diseases Opioid abuse, uncomplicated (HC Category) Procedure and treatment not carried out because of patient's decision for unspecified reasons Low back pain, unspecified documented in this encounter
--- OUTSIDE RECORDS SUMMARY | 2024-02-19 14:49 | XMS_ITS | Encounter Summary ---
Author Organization [facility] [employer] Address [address] [place] [address] Care Team Providers Care Supervisor Instrument Maintenance Name Role Phone Unavailable Primary Care Provider Unavailabl e Encounter Details Date Type Department Care Team (Latest Contact Info) Description 02/10/2023 6:33 AM POTATO PEELING MACHINE OPERATOR - 02/10/2023 6:59 AM POTATO PEELING MACHINE OPERATOR Hospital Encounter [facility] [address] [place] [address] Provider, Historical [address] [place] [address] Low back pain, unspecified; Essential (primary) hypertension Social History Tobacco Use Types Packs/Day Years Used Date Smoking Tobacco: Never Assessed Sex and Gender Information Value Date Recorded Sex Assigned at Not on file Gender Identity Not on file Sexual Orientation Not on file documented as of this encounter Plan of Treatment Not on file documented as of this encounter Visit Diagnoses Diagnosis Low back pain, unspecified Essential (primary) hypertension Unspecified essential hypertension documented in this encounter
--- OUTSIDE RECORDS SUMMARY | 2024-02-19 14:49 | XMS_ITS | Encounter Summary ---
Author Organization [facility] Address [address] [place] [address] Care Team Providers Care Instructor Weaving Name Role Phone Unavailable Primary Care Provider Unavailabl e Encounter Details Date Type Department Care Team (Late st Contact Info) Description 10/29/2018 Conversion Encounter [facility] [address] [place] [address] [place] [id number] [address] Chest pain, unspecified Social History Tobacco Use Types [...] Comments XR CHEST XRAY 1 VW Routine 10/29/2018 9: 25 PM CDT Chest pain, unspecified documented in this encounter Results * XR Chest X-ray 1v (10/29/2018 9:25 PM CDT) Anatomical Region Laterality Modality Chest Radiographic Marci ging 10/29/2018 8:47 PM CDT Impressions 10/29/2018 9:38 PM CDT 1. ??No acute cardiopulmonary disease. 2. ??No significant change compared to previous exam. Station: ??[id number] Narrative 10/29/2018 9:38 PM CDT HISTORY: Chest Pain PROCEDURE: CHEST 1 VIEW COMPARISON: September 18, 2018. TECHNIQUE: Single AP CHEST performed. FINDINGS: HEART: Heart is magnified by the AP technique, but nevertheless the size appears to be within normal limits. THORACIC SURGERIES: None apparent. THORACIC AORTA: Unremarkable. MEDIASTINUM: Midline trachea. No evidence of mediastinal adenopathy. LAUREN: Within normal limits. LUNGS: Well aerated and clear. PLEURA: Unremarkable. LIFE SUPPORT TUBING: None. OTHER: None. Procedure Note Saran Pinzon MD - 04/29/2023 HISTORY: Chest Pain PROCEDURE: CHEST 1 VIEW COMPARISON: September 18, 2018. TECHNIQUE: Single AP CHEST performed. FINDINGS: HEART: Heart is magnified by the AP technique, but nevertheless the sizeappears to be within normal limits. THORACIC SURGERIES: None apparent. THORACIC AORTA: Unremarkable. MEDIASTINUM: Midline trachea. No evidence of mediastinal adenopathy. LAUREN: Within normal limits. LUNGS: Well aerated and clear. PLEURA: Unremarkable. LIFE SUPPORT TUBING: None. OTHER: None. IMPRESSION: 1. No acute cardiopulmonary disease. 2. No significant change compared to previous exam. Station: [place] [id number] Elvia Mayes MD IMG DIAGNOSTIC IMAGI NG ORDERABLES documented in this encounter Visit Diagnoses Diagnosis Chest pain, unspecified documented in this encounter
--- OUTSIDE RECORDS SUMMARY | 2024-02-19 14:49 | XMS_ITS | Encounter Summary ---
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 Name Role Phone Unavailable Primary Care Provider Unavailabl e Encounter Details Date Type Department Care Team (Latest Contact Info) Description 09/15/2020 3:36 AM CDT - 09/15/2020 3:45 AM CDT Hospital Encounter [facility] [address] [place] [address] Provider, [facility] [address] [place] [address] Procedure and treatment not carried out due to patient leaving prior to being seen by health care provider Social History Tobacco Use Types Packs/Day Years Used Date Smoking Tobacco: Never Assessed Sex and Gender Information Value Date Recorded Sex Assigned at Not on file Gender Identity Not on file Sexual Orientation Not on file documented as of this encounter Plan of Treatment Not on file documented as of this encounter Visit Diagnoses Diagnosis Procedure and treatment not carried out due to patient leaving prior to being seen by health care provider documented in this encounter
--- OUTSIDE RECORDS SUMMARY | 2024-02-19 14:49 | XMS_ITS | Encounter Summary ---
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 Name Role Phone Unavailable Primary Care Provider Unavailabl e Encounter Details Date Type Department Care Team (Late st Contact Info) Description 11/12/2022 6:04 PM CDT - 2022 10:08 AM CDT Hospital Encounter [facility] [address] [place] [id number] Laz Carr, DO [address] [place] [address] Low back pain, unspecified; Unspecified viral hepatitis C without hepatic coma; Other stimulant abuse, uncomplicated (HC Category); Drug abuse counseling and surveillance of drug abuser; Cocaine use, unspecified, uncomplicated; Unilateral primary osteoarthritis, right hip; Acute kidney failure, unspecified (HC Category); Rhabdomyolysis; Homelessness unspecified; Polyneuropathy, unspecified; Nicotine dependence, unspecified, uncomplicated; Weakness; Essential (primary) hypertension; Other chronic pain Social History Tobacco Use Types Packs/Day Years Used Date Smoking Tobacco: Never Assessed Sex and Gender Information Value Date Recorded Sex Assigned at Not on file Gender Identity Not on file Sexual Orientation Not on file documented as of this encounter Last Filed Vital Signs Vital Sign Reading Time Taken Comments Blood Pressure 127/84 2022 8:00 AM CDT Pulse - - Temperature - - Respiratory Rate - - Oxygen Saturation - - Inhaled Oxygen Concentration - - Weight 86.2 kg (190 lb) 11/13/2022 4:00 AM CDT Height 185.4 cm (6' 1) 11/13/2022 12:21 AM CDT Body Mass Index 25.07 11/13/2022 12:21 AM CDT documented in this encounter Plan of Treatment Not on file documented as of this encounter Procedures Procedure Name Priority Date/Time Associated Diagnosis Comments COMPLETE BLOOD COUNT WITH DIFFERENTIAL Routine 2022 4:51 AM CDT CK Routine 2022 4:51 AM CDT HEPATIC FUNCTION PANEL Routine 4:51 AM CDT BASIC METABOLIC PANEL Routine 2022 4:51 AM CDT PHOSPHORUS Routine 11/13/2022 2:05 AM CDT TROPONIN I Routine 11/13/2022 2:05 AM CDT COMPLETE BLOOD COUNT WITH DIFFERENTIAL Routine 11/13/2022 2:05 AM CDT PROTHROMBIN TIME Routine 11/13/2022 2:05 AM CDT TSH Routine 11/13/2022 2:05 AM CDT MAGNESIUM Routine 11/13/2022 2:05 AM CDT CK Routine 11/13/2022 2:05 AM CDT COMPREHENSIVE METABOLIC PANEL Routine 11/13/2022 2:05 AM CDT LACTIC ACID, BLOOD Routine 11/12/2022 6: 04 PM CDT COMPLETE BLOOD COUNT WITH DIFFERENTIAL Routine 11/12/2022 6:04 PM CDT SEDIMENTATION RATE, AUTOMATED Routine 11/12/2022 6:04 PM CDT C-REACTIVE PROTEIN Routine 11/12/2022 6: 04 PM CDT CK Routine 11/12/2022 6:04 PM CDT COMPREHENSIVE METABOLIC PANEL Routine 11/12/2022 6:04 PM CDT documented in this encounter Results * (ABNORMAL) Creatine Kinase (2022 4:51 AM CDT) [facility] CK (CREATINE KINASE) 3,015(H) 30 - 200 U/L [facility] 2022 4:51 AM CDT Holland Glover MD LAB BLOOD ORD ERABLES Performing Organization Address [facility] Co de Phone Number [facility] * (ABNORMAL) Hepatic Function Panel (2022 4:51 AM CDT) [facility] BILIRUBIN TOTAL 0.2 0.2 - 1.2 mg/dL [facility] CONVERSION [facility]X BILIRUBIN, DIRECT 0.2 0.0 - 0.5 mg/dL [facility]X BILIRUBIN, INDIRECT 0.0(L) 0.3 - 0.7 mg/dL [facility]X AST / SGOT 60(H) 5 - 34 U/L [facility] ALT / SGPT 32 0 - 55 U/L [facility] TOTAL PROTEIN 6.6 6.4 - 8.3 g/dL [facility] ALBUMIN 3.0(L) 3.5 - 5.0 g/dL [facility]X ALKALINE PHOSPHATASE 69 40 - 150 U/L [facility] Blood 2022 4:51 AM CDT Holland Glover MD LAB BLOOD ORD ERABLES Performing Organization Address [facility]/State/ZIP Co de Phone Number [facility] CON[facility] * (ABNORMAL) Basic Metabolic Panel (2022 4:51 AM CDT) [facility] SODIUM 135(L) 136 - 145 mmol/L [facility] POTASSIUM 3.9(Delta ) 3.5 - 5.1 mmol/L [facility]X CHLORIDE 102 98 - 107 mmol/L [facility] CO2 26 22 - 29 mmol/L [facility] ANION GAP 7.0 6 - 18 mmol/L [facility] BUN 41(H) 8.9 - 20.6 mg/dL [facility]X CREATININE 0.8(Delta ) 0.7 - 1.3 mg/dL [facility]X EST GLOMERULAR FILTRATION RATE 110 >60 [facility] Comment: Reporting Units: mL/min/1.73m2 (MDRD Equation) If patient is -[place], [facility] result by 1.21. Stages of chronic kidney [...] Foundation website for additional information ( www.kidney.org). [facility]X GLUCOSE 76 70 - 105 mg/dL [facility] CALCIUM 8.4 8.4 - 10.2 mg/dL [facility] Blood 2022 4:51 AM CDT Holland Glover MD LAB BLOOD ORD ERABLES [facility] * (ABNORMAL) Complete Blood Count with Differential (2022 4:51 AM CDT) [facility] WBC 5.62 4.8 - 10.8 10*3/uL [facility] RED CELL COUNT 3.92(L) 4.70 - 6.10 10*6/uL [facility] HEMOGLOBIN 10.8(L) 14.0 - 18.0 g/dL [facility] HEMATOCRIT 35.0(L) 42.0 - 52.0 % [facility] MEAN CORPUSCULAR VOLUME 89.3 80.0 - 94.0 fL [facility] MEAN CORPUSCULAR HGB 27.6 26.0 - 34.0 pg [facility] MEAN CORPUSCULAR HGB CONC 30.9(L) 31.0 - 37.0 g/dL [facility] RED CELL DISTRIBUTION WIDTH 57.3(H) 35.1 - 43.9 fL [facility] PLATELET COUNT 195 130 - 400 10*3/uL [facility] MEAN PLATELET VOLUME 9.5 7.4 - 10.4 fL [facility] NEUTROPHILS % 60.9 40.0 - 78.0 % [facility] IMMATURE GRANULOCYTE % 0.2 0 - 5 % [facility] LYMPHOCYTES % 21.7 15.0 - 48.0 % [facility] MONOCYTES % 13.5(H) 0.0 - 12.0 % [facility] EOSINOPHILS % 3.0 0.0 - 7.0 % [facility] BASOPHILS % 0.7 0.0 - 3.0 % [facility] NUCLEATED RBC % 0.0 0 - 0.2 % [facility] NEUTROPHILS # 3.42 1.9 - 8.0 10*3/uL [facility] IMMATURE GRANULOCYTE # 0.01 0.0 - 0.4 10*3/uL [facility] LYMPHOCYTES # 1.22 0.9 - 4.5 10*3/uL [facility] MONOCYTES # 0.76 0.15 - 1.10 10*3/uL [facility] EOSINOPHILS # 0.17 0.00 - 1.01 10*3/uL [facility] BASOPHILS # 0.04 0.00 - 0.30 10*3/uL [facility] NUCLEATED RBC # 0.00 0 - 0.012 10*3/uL [facility] MANUAL DIFF? No [facility] ADD MORPHOLOGY No N[facility] REPORT AUTODIFF? Yes [facility] RBC MORPHOLOGY INSTRUMENT Normal N[facility] PLATELET INSTRUMENT Adequate [facility] Blood 2022 4:51 AM CDT Holland Glover MD LAB BLOOD ORD ERABLES [facility] * (ABNORMAL) Complete Blood Count with Differential (11/13/2022 2:05 AM CDT) [facility] WBC 9.27 4.8 - 10.8 10*3/uL [facility] RED CELL COUNT 4.34(L) 4.70 - 6.10 10*6/uL [facility] HEMOGLOBIN 12.2(L) 14.0 - 18.0 g/dL [facility] HEMATOCRIT 37.9(L) 42.0 - 52.0 % [facility] MEAN CORPUSCULAR VOLUME 87.3 80.0 - 94.0 fL [facility] MEAN CORPUSCULAR HGB 28.1 26.0 - 34.0 pg [facility] MEAN CORPUSCULAR HGB CONC 32.2 31.0 - 37.0 g/dL [facility] RED CELL DISTRIBUTION WIDTH 56.9(H) 35.1 - 43.9 fL [facility] PLATELET COUNT 223 130 - 400 10*3/uL [facility] MEAN PLATELET VOLUME 10.2 7.4 - 10.4 fL [facility] NEUTROPHILS % 65.9 40.0 - 78.0 % [facility] IMMATURE GRANULOCYTE % 0.1 0 - 5 % [facility] LYMPHOCYTES % 18.7 15.0 - 48.0 % [facility] MONOCYTES % 13.2(H) 0.0 - 12.0 % [facility] EOSINOPHILS % 1.6 0.0 - 7.0 % [facility] BASOPHILS % 0.5 0.0 - 3.0 % [facility] NUCLEATED RBC % 0.0 0 - 0.2 % [facility] NEUTROPHILS # 6.11 1.9 - 8.0 10*3/uL [facility] IMMATURE GRANULOCYTE # 0.01 0.0 - 0.4 10*3/uL [facility] LYMPHOCYTES # 1.73 0.9 - 4.5 10*3/uL [facility] MONOCYTES # 1.22(H) 0.15 - 1.10 10*3/uL [facility] EOSINOPHILS # 0.15 0.00 - 1.01 10*3/uL [facility] BASOPHILS # 0.05 0.00 - 0.30 10*3/uL [facility] NUCLEATED RBC # 0.00 0 - 0.012 10*3/uL [facility] MANUAL DIFF? No [facility] ADD MORPHOLOGY No N[facility] CON[facility] REPORT AUTODIFF? Yes [facility] RBC MORPHOLOGY INSTRUMENT Normal [facility] PLATELET INSTRUMENT Adequate [facility]VERSION Blood 11/13/2022 2:05 AM CDT Historical Provider LAB BLOOD ORDERABLES [facility] * Thyroid Stimulating Hormone (11/13/2022 2:05 AM CDT) Pathologist [facility] TSH 0.39 0.35 - 4.94 uIU/mL [facility] 11/13/2022 2:05 AM CDT Historical Provider LAB BLOOD ORDERABLES Performing Organization Address [facility] Co de Phone Number [facility] CONVERSION * TROPONIN I (11/13/2022 2:05 AM CDT) [facility] 0.022 0.00 - 0.033 ng/mL [facility] Comment: Interpretive guidance: <0.033: Troponin appears normal or minor myocardial damage or other cause >0.033: Consistent with Myocardial Infarction >0.290: Critical value This information is based on the recommendations of the 2012 Third Hungry [employer] Definition of Myocardial Infarction for Troponin to be at least one value above the 99th percentile upper reference limit. Cardiac Troponin-I (cTN-I) levels may be abnormally elevated in conditions known to result in myocardial injury, such as angina, unstable angina, congestive heart failure, myocarditis, cardiac surgery, or invasive testing and non-cardiac related causes such as pulmonary embolism, renal failure and sepsis. [facility] TROPONIN I 0.022 0.00 - 0.033 ng/mL [facility]VERSION Comment: Interpretive guidance: <0.033: Troponin appears normal or minor myocardial damage or other cause >0.033: Consistent with Myocardial Infarction >0.290: Critical value This information is based on the recommendations of the 2012 Third Hungry Horse Definition of Myocardial Infarction for Troponin to be at least one value above the 99th percentile upper reference limit. Cardiac Troponin-I (cTN-I) levels may be abnormally elevated in conditions known to result in myocardial injury, such as angina, unstable angina, congestive heart failure, myocarditis, cardiac surgery, or invasive testing and non-cardiac related causes such as pulmonary embolism, renal failure and sepsis. 11/13/2022 2:05 AM CDT Historical Provider LAB BLOOD ORDERABLES Performing Organization Address [facility]/ZIP Co de Phone Number [facility] CONVERSION * (ABNORMAL) Creatine Kinase (11/13/2022 2:05 AM CDT) [facility] CK (CREATINE KINASE) 5,585(H) 30 - 200 U/L [facility] 11/13/2022 2:05 AM CDT Historical Provider LAB BLOOD ORDERABLES Performing Organization Address [facility]/ZIP Co de Phone Number [facility] CONVERSION * Magnesium (11/13/2022 2:05 AM CDT) [facility] MAGNESIUM 2.4 1.6 - 2.6 mg/dL [facility] 11/13/2022 2:05 AM CDT Historical Provider LAB BLOOD ORDERABLES Performing Organization Address [facility] de Phone Number [facility] CONVERSION * Phosphorus (11/13/2022 2:05 AM CDT) [facility] PHOSPHORUS 4.0 2.3 - 4.7 mg/dL [facility]VERSION 11/13/2022 2:05 AM CDT Historical Provider LAB BLOOD ORDERABLES Performing Organization Address [facility] de Phone Number [facility] CONVERSION * (ABNORMAL) Comprehensive Metabolic Panel (11/13/2022 2:05 AM CDT) [facility]X SODIUM 134(L) 136 - 145 mmol/L [facility] CONVERSION [facility]X POTASSIUM 3.0(LL) 3.5 - 5.1 mmol/L [facility] Comment: Critical value: Called to MARIA A THAPA RN/PV07 ?? at 0348 on 11/13/22 by [id number]. ?? Result read-back successful. [facility]X CHLORIDE 99 98 - 107 mmol/L [facility] CONVERSION [facility]X CO2 22 22 - 29 mmol/L [facility] CONVERSION [facility]X ANION GAP 13.0 6 - 18 mmol/L [facility] CONVERSION [facility]X BUN 66(H) 8.9 - 20.6 mg/dL [facility] CONVERSION [facility]X CREATININE 1.8(Delta H) 0.7 - 1.3 mg/dL [facility] EST GLOMERULAR FILTRATION RATE 43(L) >60 [facility] Comment: Reporting Units: mL/min/1.73m2 (MDRD Equation) If patient is -[place], [facility] result by 1.21. Stages of chronic kidney [...] Foundation website for additional information ( www.kidney.org). [facility] GLUCOSE 105 70 - 105 mg/dL [facility] CALCIUM 8.6 8.4 - 10.2 mg/dL [facility] BILIRUBIN TOTAL 0.4 0.2 - 1.2 mg/dL [facility] AST / SGOT 78(H) 5 - 34 U/L [facility] ALT / SGPT 38 0 - 55 U/L [facility] TOTAL PROTEIN 7.8 6.4 - 8.3 g/dL [facility] ALBUMIN 3.5(Delta ) 3.5 - 5.0 g/dL [facility] CONVERSION [facility]X ALKALINE PHOSPHATASE 80 40 - 150 U/L [facility] CONVERSION Blood 11/13/2022 2:05 AM CDT Historical Provider LAB BLOOD ORDERABLES Performing Organization Address [facility] de Phone Number [facility] CONVERSION * Protime-INR (11/13/2022 2:05 AM CDT) [facility] 11.3 9.4 - 12.5 sec [facility] INR 1.0 [facility] B CONVERSION Comment: Suggested INR ranges, recommended for patients on Coumadin: ? 2.0 - 3.0 ??Prophylaxis/treatment of venous thrombosis, ?embolism or myocardial infarction. ?Prevention of systemic embolism from atrial ?fibrillation. ? 2.5 - 3.5 ??Mechanical prosthetic heart valves or re- ?current system embolism. Blood 11/13/2022 2:05 AM CDT Historical Provider LAB BLOOD ORDERABLES Performing Organization Address [facility] Phone Number [facility] CONVERSION * (ABNORMAL) Erythrocyte Sedimentation Rate (11/12/2022 6:04 PM CDT) [facility] SEDIMENTATION RATE 39(H) 0 - 15 mm/hr [facility]VERSION 11/12/2022 6:04 PM CDT Historical Provider LAB BLOOD ORDERABLES Performing Organization Address [facility] de Phone Number [facility] CONVERSION * (ABNORMAL) Complete Blood Count with Differential (11/12/2022 6:04 PM CDT) [facility] WBC 13.19(H) 4.8 - 10.8 10*3/uL [facility] RED CELL COUNT 5.04 4.70 - 6.10 10*6/uL [facility] HEMOGLOBIN 13.7(L) 14.0 - 18.0 g/dL [facility] HEMATOCRIT 42.9 42.0 - 52.0 % [facility] MEAN CORPUSCULAR VOLUME 85.1 80.0 - 94.0 fL [facility] MEAN CORPUSCULAR HGB 27.2 26.0 - 34.0 pg [facility] MEAN CORPUSCULAR HGB CONC 31.9 31.0 - 37.0 g/dL [facility] RED CELL DISTRIBUTION WIDTH 55.8(H) 35.1 - 43.9 fL [facility] PLATELET COUNT 296 130 - 400 10*3/uL [facility] MEAN PLATELET VOLUME 9.0 7.4 - 10.4 fL [facility] NEUTROPHILS % 72.7 40.0 - 78.0 % [facility] LYMPHOCYTES % 15.2 15.0 - 48.0 % [facility] MONOCYTES % 11.1 0.0 - 12.0 % [facility] EOSINOPHILS % 0.2 0.0 - 7.0 % [facility] BASOPHILS % 0.5 0.0 - 3.0 % [facility] NEUTROPHILS # 9.61(H) 1.9 - 8.0 10*3/uL [facility] LYMPHOCYTES # 2.00 0.9 - 4.5 10*3/uL [facility] MONOCYTES # 1.46(H) 0.15 - 1.10 10*3/uL [facility] EOSINOPHILS # 0.02 0.00 - 1.01 10*3/uL [facility] BASOPHILS # 0.06 0.00 - 0.30 10*3/uL [facility] MANUAL DIFF? No [facility] ADD MORPHOLOGY No N[facility] REPORT AUTODIFF? Yes [facility] RBC MORPHOLOGY INSTRUMENT Normal [facility] PLATELET INSTRUMENT Adequate [facility] CONVERSION Blood 11/12/2022 6:04 PM CDT Historical Provider LAB BLOOD ORDERABLES Performing Organization Address [facility] Phone Number [facility] CONVERSION * (ABNORMAL) C Reactive Protein (11/12/2022 6:04 PM CDT) [facility] C REACTIVE PROTEIN (QUANT) 12.1(H) 0.5 - 2.0 mg/L [facility] 11/12/2022 6:04 PM CDT Historical Provider LAB BLOOD ORDERABLES Performing Organization Address [facility] Phone Number [facility] CONVERSION * LACTIC ACID, BLOOD (11/12/2022 6:04 PM CDT) [facility] LACTIC ACID 1.7 0.5 - 2.2 mmol/L [facility]VERSION 11/12/2022 6:04 PM CDT Historical Provider LAB HISTORICAL ORDER S Performing Organization Address [facility] Phone Number [facility] CONVERSION * (ABNORMAL) Creatine Kinase (11/12/2022 6:04 PM CDT) [facility] CK (CREATINE KINASE) 6,347(H) 30 - 200 U/L [facility] CONVERSION 11/12/2022 6:04 PM CDT Historical Provider LAB BLOOD ORDERABLES Performing Organization Address [facility] de Phone Number [facility] CONVERSION * (ABNORMAL) Comprehensive Metabolic Panel (11/12/2022 6:04 PM CDT) [facility] SODIUM 132(L) 136 - 145 mmol/L [facility] CONVERSION [facility]X POTASSIUM 3.4(L) 3.5 - 5.1 mmol/L [facility] CONVERSION [facility]X CHLORIDE 96(L) 98 - 107 mmol/L [facility] CONVERSION [facility]X CO2 22 22 - 29 mmol/L [facility] ANION GAP 14.0 6 - 18 mmol/L [facility] CON[facility] BUN 80(H) 8.9 - 20.6 mg/dL [facility] CREATININE 3.8(H) 0.7 - 1.3 mg/dL [facility] EST GLOMERULAR FILTRATION RATE 18(L) >60 [facility] CONVERSION Comment: Reporting Units: mL/min/1.73m2 (MDRD Equation) If patient is -Nauruan, [facility] result by 1.21. Stages of chronic kidney [...] Foundation website for additional information ( www.kidney.org). [facility]X GLUCOSE 159(H) 70 - 105 mg/dL [facility] CONVERSION [facility]X CALCIUM 9.0 8.4 - 10.2 mg/dL [facility] CONVERSION [facility] BILIRUBIN TOTAL 0.8 0.2 - 1.2 mg/dL [facility] AST / SGOT 92(H) 5 - 34 U/L [facility] ALT / SGPT 44 0 - 55 U/L [facility] TOTAL PROTEIN 9.7(H) 6.4 - 8.3 g/dL [facility] ALBUMIN 4.4 3.5 - 5.0 g/dL [facility] ALKALINE PHOSPHATASE 101 40 - 150 U/L [facility] CONVERSION Blood 11/12/2022 6:04 PM CDT Historical Provider LAB BLOOD ORDERABLES [facility]VERSION documented in this encounter Visit Diagnoses Diagnosis Low back pain, unspecified Unspecified viral hepatitis C without hepatic coma Other stimulant abuse, uncomplicated (HC Category) Drug abuse counseling and surveillance of drug abuser Cocaine use, unspecified, uncomplicated Unilateral primary osteoarthritis, right hip Acute kidney failure, unspecified (HC Category) Acute kidney failure, unspecified Rhabdomyolysis Homelessness unspecified Polyneuropathy, unspecified Nicotine dependence, unspecified, uncomplicated Weakness Other malaise and fatigue Essential (primary) hypertension Unspecified essential hypertension Other chronic pain documented in this encounter
--- OUTSIDE RECORDS SUMMARY | 2024-02-19 14:49 | XMS_ITS | Encounter Summary ---
[facility] Organization [facility] Address [address] [place] [address] Care Team Providers Care Shoe Folder Name Role Phone Unavailable Primary Care Provider Unavailabl e Encounter Details Date Type Department Care Team (Latest Contact Info) Description 03/07/2023 9:30 PM TITLE EXAMINER - 03/07/2023 9:41 PM TITLE EXAMINER Hospital Encounter [facility] [address] [place] [address] Provider, Historical [address] [place] [address] Procedure and treatment not carried out due [...]
--- OUTSIDE RECORDS SUMMARY | 2024-02-19 14:49 | XMS_ITS | Encounter Summary ---
Author Organization [employer] Address [address] [place] [address] Care Team Providers Care Car Hop Name Role Phone Unavailable Primary Care Provider Unavailabl e Encounter Details Date Type Department Care Team (Latest Contact Info) Description 09/03/2018 Conversion Encounter [facility] [address] [place] [address] Provider, [facility] [address] [place] [address] Encounter for follow-up examination after completed treatment for conditions other than malignant neoplasm Social History Tobacco Use Types Packs/Day Years Used Date Smoking Tobacco: Never Assessed Sex and Gender Information Value Date Recorded Sex Assigned at Not on file Gender Identity Not on file Sexual Orientation Not on file documented as of this encounter Plan of Treatment Not on file documented as of this encounter Procedures Procedure Name Priority Date/Time Associated Diagnosis Comments CT ABDOMEN PELVIS W CONTRAST Routine 09/03/2018 3:00 AM CDT Encounter for follow-up examination after completed treatment for conditions other than malignant neoplasm documented in this encounter Results * CT Abdomen Pelvis W Contrast (09/03/2018 3:00 AM CDT) Anatomical Region Laterality Modality Abdomen, Pelvis, Hip Computed To mography 09/03/2018 1:59 AM CDT Impressions 09/03/2018 4:15 AM CDT 1. Superficial subcutaneous abscess within the left groin measuring 1.9 x 4.8 x 4.0 cm. 2. There are 2 contiguous nonobstructing lower pole calculi seen on the left kidney measuring 3 mm each. Narrative 09/03/2018 4:15 AM CDT EXAM: CT Abdomen and Pelvis With Contrast EXAM DATE/TIME: 09/03/2018 12:00 AM CLINICAL HISTORY: 42 years old, male; Signs and symptoms; Mass, lump, or swelling; Other: Left groin; Patient HX: PT heavy iv drug user, only iv extravasated, approx 40 cc of isovue was administered prior to extravasation; Additional info: R groin abscess, iv drug user, back pain TECHNIQUE: Imaging protocol: Axial computed tomography images of the abdomen and pelvis with intravenous contrast. Coronal and sagittal reformatted images were created and reviewed. Radiation optimization: All CT scans at this facility use at least one of these dose optimization techniques: automated exposure control; mA and/or kV adjustment per patient size (includes targeted exams where dose is matched to clinical indication); or iterative reconstruction. Contrast material: ISOVUE 370; Contrast volume: 40 ml; Contrast route: LAC; COMPARISON: CR PELVIS LIMITED 1V OR 2V 07/02/2018 5:41 PM FINDINGS: Limitations: The study is limited secondary to the decreased volume of intravenous contrast after extravasation. ABDOMEN: Liver: Normal. No mass. Gallbladder and bile ducts: The gallbladder appears contracted. Pancreas: Normal. No ductal dilation. Spleen: Normal. No splenomegaly. Adrenals: Normal. No mass. Kidneys and ureters: There are 2 contiguous 3 mm nonobstructing lower pole calculi seen in the left kidney. Stomach and bowel: Normal. No obstruction. No mucosal thickening. Appendix: No evidence of appendicitis. PELVIS: Bladder: Unremarkable as visualized. Reproductive: Unremarkable as visualized. ABDOMEN and PELVIS: Intraperitoneal space: See Soft Tissues Finding. Bones/joints: No acute fracture. No dislocation. Soft tissues: There is a prominent subcutaneous low attenuation mass seen in the left inguinal region measuring 1.9 cm AP dimension by 4.8 cm transverse dimension by 4 cm craniocaudal dimension. There is an air-fluid level seen within the mass, findings compatible with abscess formation. Vasculature: Normal. No abdominal aortic aneurysm. Lymph nodes: Normal. No enlarged lymph nodes. Procedure Note Provider, Historical - 04/29/2023 EXAM: CT Abdomen and Pelvis With Contrast EXAM DATE/TIME: 09/03/2018 12:00 AM CLINICAL HISTORY: 42 years old, male; Signs and symptoms; Mass, lump, or swelling; Other:Left groin; Patient HX: PT heavy iv drug user, only iv extravasated, approx 40cc of isovue was administered prior to extravasation; Additional info: R groin abscess, iv drug user, back pain TECHNIQUE: Imaging protocol: Axial computed tomography images of the abdomen andpelvis with intravenous contrast. Coronal and sagittal reformatted images were created and reviewed. Radiation optimization: All CT scans at this facility use at least oneof these dose optimization techniques: automated exposure control; mA and/orkV adjustment per patient size (includes targeted exams where dose is matchedto clinical indication); or iterative reconstruction. Contrast material: ISOVUE 370; Contrast volume: 40 ml; Contrast route:LAC; COMPARISON: CR PELVIS LIMITED 1V OR 2V 07/02/2018 5:41 PM FINDINGS: Limitations: The study is limited secondary to the decreased volume of intravenous contrast after extravasation. ABDOMEN: Liver: Normal. No mass. Gallbladder and bile ducts: The gallbladder appears contracted. Pancreas: Normal. No ductal dilation. Spleen: Normal. No splenomegaly. Adrenals: Normal. No mass. Kidneys and ureters: There are 2 contiguous 3 mm nonobstructing lowerpole calculi seen in the left kidney. Stomach and bowel: Normal. No obstruction. No mucosal thickening. Appendix: No evidence of appendicitis. PELVIS: Bladder: Unremarkable as visualized. Reproductive: Unremarkable as visualized. ABDOMEN and PELVIS: Intraperitoneal space: See Soft Tissues Finding. Bones/joints: No acute fracture. No dislocation. Soft tissues: There is a prominent subcutaneous low attenuation mass seenin the left inguinal region measuring 1.9 cm AP dimension by 4.8 cmtransverse dimension by 4 cm craniocaudal dimension. There is an air-fluid levelseen within the mass, findings compatible with abscess formation. Vasculature: Normal. No abdominal aortic aneurysm. Lymph nodes: Normal. No enlarged lymph nodes. IMPRESSION: 1. Superficial subcutaneous abscess within the left groin measuring 1.9 x4.8 x 4.0 cm. 2. There are 2 contiguous nonobstructing lower pole calculi seen on theleft kidney measuring 3 mm each. Historical Provider IMG CT ORDERABLES documented in this encounter Visit Diagnoses Diagnosis Encounter for follow-up examination after completed treatment for conditions other than malignant neoplasm documented in this encounter
--- OUTSIDE RECORDS SUMMARY | 2024-02-19 14:49 | XMS_ITS | Encounter Summary ---
Author Organization [employer] Address [address] [place] [address] Care Team Providers Care Cant Hooker Name Role Phone Unavailable Primary Care Provider Unavailabl e Encounter Details Date Type Department Care Team (Latest Contact Info) Description 09/20/2021 1:56 AM CDT - 09/20/2021 6:15 AM CDT Hospital Encounter [facility] [address] [place] [address] Provider, [facility] [address] [place] [address] Opioid abuse, uncomplicated (HC Category); Nicotine dependence, unspecified, uncomplicated; Polyneuropathy, unspecified; Syncope and collapse; Personal history of other infectious and parasitic diseases; Poisoning by heroin, accidental (unintentional), initial encounter (HC Category); Essential (primary) hypertension Social History Tobacco Use Types Packs/Day Years Used Date Smoking Tobacco: Never Assessed Sex and Gender Information Value Date Recorded Sex Assigned at Not on file Gender Identity Not on file Sexual Orientation Not on file documented as of this encounter Plan of Treatment Not on file documented as of this encounter Visit Diagnoses Diagnosis Opioid abuse, uncomplicated (HC Category) Nicotine dependence, unspecified, uncomplicated Polyneuropathy, unspecified Syncope and collapse Personal history of other infectious and parasitic diseases Poisoning by heroin, accidental (unintentional), initial encounter (HC Category) Essential (primary) hypertension Unspecified essential hypertension documented in this encounter
--- OUTSIDE RECORDS SUMMARY | 2024-02-19 14:49 | XMS_ITS | Encounter Summary ---
Author Organization [employer] Address [address] [place] [address] Care Team Providers Care Licensed Midwife Name Role Phone Unavailable Primary Care Provider Unavailabl e Encounter Details Date Type Department Care Team (Late st Contact Info) Description 07/28/2018 Conversion Encounter [address] [address] Alma Sr MD [address] [place] [phone] Dizziness and giddiness Social History Tobacco Use [...] Name Priority Date/Time Associated Diagnosis Comments CT BRAIN HEAD WO CONTRAST Routine 07/28/2018 6:22 PM CDT Dizziness and giddiness documented in this encounter Results * CT Head/Brain Wo Contrast (07/28/2018 6:22 PM CDT) Anatomical Region Laterality Modality Head Computed Tomogra phy 07/28/2018 5:09 PM CDT Impressions 07/28/2018 6:29 PM CDT 1. ??No acute intracranial pathology. Station: ??[id number] Narrative 07/28/2018 6:29 PM CDT HISTORY: AMS, confusion, hx IVDU COMPARISON: ??None. TECHNIQUE: CT of the brain without contrast: ??Transaxial images were performed through the brain without intravenous contrast. A CT dosimetry report is saved to PACS. The CT scanner utilized a dose reduction technique. ??Dose image saved in file. FINDINGS: POSTERIOR FOSSA: ??Normal. SUPRATENTORIAL: ??Normal. OTHER: ??None. Procedure Note Maurice Belle MD - 04/28/2023 HISTORY: AMS, confusion, hx IVDU COMPARISON: None. TECHNIQUE: CT of the brain without contrast: Transaxial images wereperformed through the brain without intravenous contrast. A CT dosimetry report issaved to PACS. The CT scanner utilized a dose reduction technique. Dose imagesaved in file. FINDINGS: POSTERIOR FOSSA: Normal. SUPRATENTORIAL: Normal. OTHER: None. IMPRESSION: 1. No acute intracranial pathology. Station: [id number] Alma Sr MD IM CT ORDER GEOFFREY documented in this encounter Visit Diagnoses Diagnosis Dizziness and giddiness documented in this encounter
--- OUTSIDE RECORDS SUMMARY | 2024-02-19 14:49 | XMS_ITS | Encounter Summary ---
Author Organization [employer] Address [address] [place] [address] Care Team Providers Care Oil Mixer Name Role Phone Unavailable Primary Care Provider Unavailabl e Encounter Details Date Type Department Care Team (Late st Contact Info) Description 07/28/2018 Conversion Encounter [address] [address] Alma Sr MD [address] [place] [phone] Dizziness and giddiness Social History Tobacco [...] Name Priority Date/Time Associated Diagnosis Comments CT LUMBAR SPINE WO CONTRAST Routine 07/28/2018 6:22 PM CDT Dizziness and giddiness documented in this encounter Results * CT Lumbar Spine Wo Contrast (07/28/2018 6:22 PM CDT) Anatomical Region Laterality Modality T-spine, L-spine, Pelvis Compute d Tomography 07/28/2018 5:48 PM CDT Impressions 07/28/2018 6:32 PM CDT 1. ??Moderate spondylosis with multilevel diffuse disc bulges from L2-L3 to L4- L5 levels with mild central spinal canal stenosis. Station: ??[id number] Narrative 07/28/2018 6:32 PM CDT HISTORY: ??incontinence, back pain, IVDU COMPARISON: ??None. ADDITIONAL HISTORY: None. TECHNIQUE: ??Spiral CT examination of the lumbar spine was performed without intravenous contrast. ??A CT dosimetry report is saved to PACS. The CT scanner utilizes a dose reduction technique. FINDINGS: ALIGNMENT: ??Normal. DISC SPACES: ??Moderate narrowing of the L5-S1 and L3-L4 intervertebral disc spaces with mild to moderate degenerative endplate changes and degenerative disc disease at the L5-S1 level. Mild diffuse disc bulges are seen from L2-L3 to the L4-L5 levels with mild impression on the thecal sac with mild central spinal canal stenosis evident at these levels. VERTEBRAE: ??Mild nodes are seen along the inferior endplate of L1 superior endplate of L2 are seen as well as inferior endplate of L3 noted. OTHER: ??None. Procedure Note Maurice Belle MD - 04/28/2023 HISTORY: incontinence, back pain, IVDU COMPARISON: None. ADDITIONAL HISTORY: None. TECHNIQUE: Spiral CT examination of the lumbar spine was performedwithout intravenous contrast. A CT dosimetry report is saved to PACS. The CTscanner utilizes a dose reduction technique. FINDINGS: ALIGNMENT: Normal. DISC SPACES: Moderate narrowing of the L5-S1 and L3-L4 intervertebraldisc spaces with mild to moderate degenerative endplate changes anddegenerative disc disease at the L5-S1 level. Mild diffuse disc bulges are seen from L2-L3 to the L4-L5 levels withmild impression on the thecal sac with mild central spinal canal stenosisevident at these levels. VERTEBRAE: Mild nodes are seen along the inferior endplate of [id number] endplate of L2 are seen as well as inferior endplate of L3 noted. OTHER: None. IMPRESSION: 1. Moderate spondylosis with multilevel diffuse disc bulges from L2-L3 toL4- L5 levels with mild central spinal canal stenosis. Station: [id number] Alma Sr MD IMG CT ORDER GEOFFREY documented in this encounter Visit Diagnoses Diagnosis Dizziness and giddiness documented in this encounter
--- OUTSIDE RECORDS SUMMARY | 2024-02-19 14:49 | XMS_ITS | Encounter Summary ---
Author Organization [employer] Address [address] [place] [address] Care Team Providers Care Supervisor Grower Name Role Phone Unavailable Primary Care Provider Unavailabl e Encounter Details Date Type Department Care Team (Late st Contact Info) Description 09/18/2018 Conversion Encounter [facility] [address] [place] [address] Melissa Key, [address] [place] [phone] Adverse effect of unspecified drugs, medicaments and biological substances, initial encounter Social History Tobacco Use Types Packs/Day Years [...] Comments XR CHEST XRAY 1 VW Routine 09/18/2018 2: 43 PM CDT Adverse effect of unspecified drugs, medicaments and biological substances, initial encounter documented in this encounter Results * XR Chest X-ray 1v (09/18/2018 2:43 PM CDT) Anatomical Region Laterality Modality Chest Radiographic Marci ging 09/18/2018 2:29 PM CDT Impressions 09/18/2018 3:04 PM CDT 1. ??No acute cardiopulmonary process. Station: ??[id number] Narrative 09/18/2018 3:04 PM CDT HISTORY: ??drug intoxication COMPARISON: ??September 08, 2018 ADDITIONAL HISTORY: None. TECHNIQUE: ??Single AP view of the chest. FINDINGS: HEART AND MEDIASTINUM: ??Normal. LAUREN: ??Normal. LUNGS: ??Normal. PLEURA: ??Normal. OTHER: ??None. Procedure Note Walker Borja MD - 04/29/2023 HISTORY: drug intoxication COMPARISON: September 08, 2018 ADDITIONAL HISTORY: None. TECHNIQUE: Single AP view of the chest. FINDINGS: HEART AND MEDIASTINUM: Normal. LAUREN: Normal. LUNGS: Normal. PLEURA: Normal. OTHER: None. IMPRESSION: 1. No acute cardiopulmonary process. Station: [id number] Melissa Key DO IMG DIAGNOSTIC IM AGING ORDERABLES documented in this encounter Visit Diagnoses Diagnosis Adverse effect of unspecified drugs, medicaments and biological substances, initial encounter documented in this encounter
== END 2024-02-19 14:48 | disposition home or self-care (01) ==
LOC: ER 14:45
PROVIDERS: Emergency Provider Student in an Organized Health Care Education/Training Program
DX: B19.20 Unspecified viral hepatitis C without hepatic coma; Z79.891 Long term (current) use of opiate analgesic; Z76.0 Encounter for issue of repeat prescription; F17.200 Nicotine dependence, unspecified, uncomplicated; F11.90 Opioid use, unspecified, uncomplicated
CPT/HCPCS: 99283

== ENCOUNTER 2024-03-02 09:28 | Emergency (ER) | payer MEDICAID, SELFPAY ==
[2024-03-02 09:32] VITALS: PULSE 82; RESP 16; TEMP 36.6; O2SAT 100
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
== END 2024-03-02 10:32 | disposition home or self-care (01) ==
PROVIDERS: Emergency Provider Physician Assistant
DX: F90.9 Attention-deficit hyperactivity disorder, unspecified type (principal)
CPT/HCPCS: 99283

== ENCOUNTER 2024-04-26 10:55 | Emergency (ER) | payer MEDICAID, SELFPAY ==
[2024-04-26] VITALS (18 sets, daily range): BP systolic 104–166; BP diastolic 72–99; PULSE 67–78; RESP 7–16; TEMP 36.8; O2SAT 87–96
[2024-04-26 12:20] LABS: Abs Immature Grans 0.01 10^3/uL (0.0-0.06); Absolute Basophil Count 0.03 10^3/uL (0.0-0.2); Absolute Eosinophil Count 0.18 10^3/uL (0.0-0.7); Absolute Lymphocyte Count 1.61 10^3/uL (1.2-3.4); Absolute Monocyte Count 0.61 10^3/uL (0.1-0.8); Absolute Neutrophil Count 3.43 10^3/uL (1.2-6.7); Basophils % 0.5 %; Eosinophils % 3.1 %; HCT 37.7 % (40.0-50.0); HGB 12.2 g/dL (13.5-17.5); Immature Grans % 0.2 %; Lymphocytes % 27.4 %; MCH 29.9 pg (27.0-33.0); MCHC 32.4 % (32.0-36.0); MCV 92 fL (80-95); MPV 9.2 fL (8.0-11.0); Monocytes % 10.4 %; Neutrophils % 58.4 %; Platelet Count 193 10^3/uL (130-400); RBC 4.08 10^6/uL (4.36-5.78); RDW 13.7 % (11.8-14.1); RDW-SD 46.5 fL; WBC 5.87 10^3/uL (4.4-10.8)
[2024-04-26 12:44] LABS: ALT 95 U/L (16-63); AST 166 U/L (15-37); Albumin 3.5 g/dL (3.4-5.0); Alkaline Phosphatase 104 U/L (46-116); Anion Gap 5.3 mmol/L (3-11); BUN 13 mg/dL (7-18); Bilirubin, Total 0.34 mg/dL (0.2-1.0); CO2 30.7 mmol/L (21.0-32.0); CREATININE 0.8 mg/dL (0.70-1.30); Calcium 8.9 mg/dL (8.5-10.1); Chloride 105 mmol/L (98-107); Estimated GFR 108.49 (mL/min/1.73m2); Glucose 93 mg/dL (74-106); Sodium 141 mmol/L (136-145); TSH (W/Ref FT4) 4.21 uIU/mL (0.36-3.74); Total Protein 7.8 g/dL (6.4-8.2)
[2024-04-26 13:14] LABS: FREE T4 0.91 ng/dL (0.76-1.46)
--- NOTE | 2024-04-26 15:52 | W.ED.GENAD ---
Discharge Plan Discharge Details Chief Complaint: PsychEval Primary Care Provider: Unknown,Unknown ED Provider: Bisi Jane Home Meds and New Rx's Prescriptions: No Action methadone 10 MG/ML concentrate 190 mg PO DAILY Patient Comments: Pt states he takes 190 mg daily 02/19/24 gabapentin 600 MG tablet 1,200 mg PO TID sertraline 100 MG tablet 200 mg PO DAILY Patient Comments: needs prescription methylphenidate HCl [Concerta] 36 MG tablet extended release 24hr 2 tab PO DAILY Patient Comments: confirmed by pt pharmacy clonazepam 1 mg tablet 1 mg PO TID Patient Comments: TAKE 1 TABLET BY MOUTH THREE TIMES DAILY methylphenidate HCl 54 mg tablet extended release 24hr 54 mg PO BID Patient Comments: TAKE 1 TABLET BY MOUTH TWICE DAILY. lisinopril 10 mg tablet 10 mg PO DAILY Patient Comments: take 1/2 tablet by mouth daily for 2 days then take 1 tablet by mouth daily multivitamin with folic acid [Daily-Nehemiah (with folic acid)] 400 mcg tablet 1 tab PO DAILY Patient Comments: take 1 tablet by mouth daily with food nicotine (polacrilex) 4 mg gum 4 mg PO PRN Patient Comments: CHEW 1 PIECE OF GUM EVERY 2 HOURS BY MOUTH FOR SMOKING CESSATION HPI General Date/Time Provider Initiated Documentation: 04/26/24 11:20. HPI Narrative: The patient is a 48-year-old male with a history of polysubstance abuse and discitis, presenting from the methadone clinic after being evaluated in the emergency department earlier in the day for suicidal ideation. He reportedly relapsed on fentanyl yesterday and is now presenting with suicidal ideation, as reported by the provider at the methadone clinic. Upon arrival, he is unable to provide a reliable history due to being dosed with a large amount of methadone prior to his arrival at the emergency department. He vaguely endorses suicidality and reports being homeless. He last used fentanyl this morning, about 45 minutes prior to his arrival, and did receive his methadone. He does not report any specific pain complaints. Related Data Home Medications ?Medication ?Instructions ?Recorded ?Confirmed methadone 10 mg/mL oral concentrate 190 mg PO DAILY 11/11/14 04/26/24 gabapentin 600 mg tablet 1,200 mg PO TID 07/18/16 04/26/24 sertraline 100 mg tablet 200 mg PO DAILY 07/18/16 03/02/24 methylphenidate HCl 36 mg 2 tab PO DAILY 01/16/17 04/27/24 tablet,extended release 24 hr (Concerta) clonazepam 1 mg tablet 1 mg PO TID 03/02/24 04/26/24 methylphenidate HCl 54 mg 54 mg PO BID 03/02/24 04/26/24 tablet,extended release 24 hr lisinopril 10 mg tablet 10 mg PO DAILY 04/26/24 04/26/24 multivitamin with folic acid 400 1 tab PO DAILY 04/26/24 04/26/24 mcg tablet (Daily-Nehemiah (with folic acid)) nicotine (polacrilex) 4 mg gum 4 mg PO PRN 04/26/24 Allergies Allergy/AdvReac Type Severity Reaction Status Date / Time No Known Allergies Allergy Unverified 03/02/24 09:31 General Stated Complaint: PsychEval SHAUNA: 2 Exam Narrative Exam Narrative: General Appearance: The patient is sleeping but arousable to loud voice. Vital signs: Vitals are stable. HEENT: The patient has pinpoint pupils. Respiratory: Within normal limits. Cardiovascular: Gastrointestinal: Genitourinary: Lymphatic: Back, Musculoskeletal: Extremities: Skin: Warm and dry, no rash. Neurological: The patient is able to follow some basic commands. He is maintaining his airway. Psychiatric: Other observations: Course Vital Signs Vital signs: Vital Signs Pulse 78 04/26/24 11:09 Blood Pressure 166/99 H 04/26/24 11:09 Pulse Oximetry 94 04/26/24 11:09 Temperature 36.8 C 04/26/24 11:25 Temperature Source Temporal Artery Scan 04/26/24 11:25 Pulse 70 04/26/24 15:30 Pulse 70 04/26/24 15:30 Respiratory Rate 7 L 04/26/24 15:30 Blood Pressure 136/93 H 04/26/24 15:21 Blood Pressure Mean 104 04/26/24 15:21 Blood Pressure Position Supine 04/26/24 11:25 Pulse Oximetry 88 L 04/26/24 15:30 Oxygen Delivery Method Room Air 04/26/24 11:25 Oxygen Flow Rate 0 04/26/24 11:25 Lab/Test Results Lab/Test Results: Laboratory Tests Range/Units 04/26/24 12:15 WBC (4.4-10.8) 10^3/uL 5.87 RBC (4.36-5.78) 10^6/uL 4.08 L Hgb (13.5-17.5) g/dL 12.2 L Hct (40.0-50.0) % 37.7 L MCV (80-95) fL 92 MCH (27.0-33.0) pg 29.9 MCHC (32.0-36.0) % 32.4 RDW (11.8-14.1) % 13.7 Plt Count (130-400) 10^3/uL 193 MPV (8.0-11.0) fL 9.2 Immature Gran % % 0.2 Neutrophils % % 58.4 Lymphocytes % % 27.4 Monocytes % % 10.4 Eosinophils % % 3.1 Basophils % % 0.5 Nucleated RBC % (0.0-0.3) % 0.0 Absolute Neutrophils (1.2-6.7) 10^3/uL 3.43 Absolute Lymphocytes (1.2-3.4) 10^3/uL 1.61 Absolute Monocytes (0.1-0.8) 10^3/uL 0.61 Absolute Eosinophils (0.0-0.7) 10^3/uL 0.18 Absolute Basophils (0.0-0.2) 10^3/uL 0.03 Sodium (136-145) mmol/L 141 Potassium (3.5-5.1) mmol/L 4.0 Chloride (98-107) mmol/L 105 Carbon Dioxide (21.0-32.0) mmol/L 30.7 Anion Gap (3-11) mmol/L 5.3 BUN (7-18) mg/dL 13 Creatinine (0.70-1.30) mg/dL 0.8 Est GFR (CKD-EPI 2020) (mL/min/1.73m2) 108.49 Glucose (74-106) mg/dL 93 Calcium (8.5-10.1) mg/dL 8.9 Total Bilirubin (0.2-1.0) mg/dL 0.34 AST (15-37) U/L 166 H ALT (16-63) U/L 95 H Alkaline Phosphatase (46-116) U/L 104 Total Protein (6.4-8.2) g/dL 7.8 Albumin (3.4-5.0) g/dL 3.5 TSH (0.36-3.74) uIU/mL 4.21 H Free T4 (0.76-1.46) ng/dL 0.91 Medical Decision Making Initial Assessment: 48-year-old male with history of polysubstance abuse and discitis, presenting from methadone clinic after being evaluated in the emergency department earlier for suicidal ideation. Relapsed on fentanyl yesterday, received a large dose of methadone prior to arrival, and is unable to give a reliable history. Vaguely endorses suicidality and states he is homeless. Last used fentanyl 45 minutes prior to arrival. Denies specific pain complaints. Physical exam shows patient is sleeping, arousable to loud voice, with pinpoint pupils, able to follow basic commands, maintaining airway, stable vitals, no head trauma. Difficult to assess currently. ED Course: - Blood work ordered. - Monitored on telemetry due to likely overmedication. - At 1553 hours, patient still arousable to voice, intermittent episodes of apnea after receiving 190 mg of methadone and using additional illicit substance this morning. - Continued observation as not yet medically cleared for [facility] Human Service's assessment. - No indication of infectious etiology. - Considered reversing opiate status, but risk outweighs benefit. - Care transitioned to oncoming provider. Final Assessment: Patient with polysubstance abuse and suicidal ideation, difficult to assess due to overmedication. Blood work ordered, monitored on telemetry, and continued observation until medically cleared for behavioral health assessment. Clinical Impression: - Suicidal ideation - Polysubstance abuse Disposition: - Care transitioned to oncoming provider. MDM Components Evaluation: - Number of Differential Diagnoses or Management Options: Suicidal ideation, polysubstance abuse. - Amount and Complexity of Data Reviewed: Blood work, telemetry monitoring. - Risk of Complication and Morbidity or Mortality: High risk due to polysubstance abuse and overmedication. Quality:SDMT Health Related Social Needs: No Data to Display PFSH All Active Problems (Updated 04/26/24 @ 10:00 by JAYLEN Glover) Smoker (Chronic) Restless leg syndrome (Chronic) Urinary retention (Chronic) ADD (attention deficit disorder) (Chronic) Hepatitis C (Chronic) Polydrug abuse, continuous (Acute 07/22/14) Family History Mother Essential hypertension Father No problems noted. Brother Diabetes Essential hypertension Social History Smoking/Tobacco Use Status: Current every day Smoking risk assessment performed?: Yes Alcohol Intake: never Drug use: Daily Substance use type: sedatives and IV drugs Details: current use Housing: apartment Do you feel safe at home: Yes Do you feel safe in your relationship?: Yes
[2024-04-26 16:05] LABS: Lactate 0.8 mmol/L (<or=2.0)
--- NOTE | 2024-04-26 17:18 | W.ED.FU ---
Follow Up Plan: Handoff received from JAYLEN Glover daytime KYLEE. Please see her note for full HPI, physical exam, and diagnostics. Dima is a 48-year-old male who presented to the emergency department today for evaluation of suicidal ideation voiced at methadone clinic. He was sent by [facility] for further psychiatric evaluation. Dima spent the majority of the day sleeping; occasional periods of apnea but responded well to verbal and tactile stimulation. He was able to eat dinner when he woke up; was alert and oriented, in no acute distress. He was evaluated by [facility]; declined to participate fully in assessment, but did voice that he is agreeable to [place] retreat. He is requesting his p.m. meds, these have been ordered. I was able to perform an interview with patient after he was awake. Dima reports that he has had thoughts of suicide since his brother by drowning. He has thought about how he would kill himself, says that he would shoot himself with a gun. Admits that he does not have access to a gun but would figure it out. He has recently been on a buitrago for the last 4 days, using fentanyl and cocaine. Otherwise says he has been in good health, denies recent illness. Denies HI or hallucinations, though he does see his brother talking to him when he is falling asleep. He was agreeable to talking with [facility] again after PM meds ordered. Is interested in inpatient treatment; says he would like to go to a sober house afterwards. Handoff report given to Dr Roblero, overnight attending.
--- NOTE | 2024-04-26 17:30 | CMSP_ITS ---
Date of service: 04/26/24 Time of Service: 17:30 Care Management Safety Plan Status Status: Interim Reason for Wait Reason for Wait: Inpatient Admission Safety Plan Safety Plan: CM will respond to ED to assess patient after patient has been medically cleared and assessed by screener, during regular CM hours. If screener deems patient meets criteria for psychiatric stabilization CM will facilitate interdepartmental huddle with [facility] screener for safety planning considerations and meet with patient to review [facility] policy and safety plan, establish individual wishes for treatment and maintain patient rights. In the interim; please note safety plan below to guide patient care while awaiting further assessment in the ED.? SAFETY PLAN: 1. Will remain on suicide precautions and in paper clothes.? 2. Will remain in room under direct supervision of one-on-one staff at all times provided by MAZIN, VETERINARY PRACTICE MANAGER orthotist/prosthetist. 3. May have paper cups, plates, finger foods as well as a cardboard spoon with which to eat meals. 4. Follow [facility] Management of the Admitted Behavioral Health Patient policy. 5. Personal care: Comfort bath system vs shower, at RN discretion. 6. Bathroom privileges: with escort in ED. Available in room without limitation on Med/Surg. 6. No personal belongings at this time; per RN discretion. 7. No visitors at this time. 8. Phone contact: may use [facility] cordless phone for incoming/outgoing calls, at RN discretion. 9. Activities: Music tablet per RN discretion. 10. Due to VOLUNTARY status, if patient wishes to leave [facility], staff will contact [facility] Crisis Screener ([phone]) and On-Call Manager Call ([phone]) as soon as possible. In the event of elopement, notify [facility] Police ([phone]). ? If deemed appropriate for inpatient psychiatric care, safety plan will be established with patient, and care team, to adhere to patient goals, identify restrictions based on behavioral status, address nutrition, and determine allowed personal belongings, tools for hygiene and personal care. As well plan will determine level of activity including ambulation, level of supervision, visitors, and determine privileges based on level of acuity, behaviors and level of engagement by patient.
--- NOTE | 2024-04-27 00:11 | NUR.NOTE ---
Pt has been medically cleared and has been moved into [facility] for further care. Pt appears agitated and is requesting meds.
[2024-04-27] MEDS: clonazePAM 1 MG TAB PO ×4 (00:15→20:00)
[2024-04-27] MEDS: Gabapentin 600 MG TAB 1200 MG PO ×4 (00:16→20:00)
[2024-04-27] MEDS: Nicotine 4 MG GUM CH ×3 (00:45→13:00)
[2024-04-27] MEDS: Methylphenidate 10 MG TAB 54 MG PO (00:55)
--- NOTE | 2024-04-27 07:42 | W.EDPROG ---
Date of service: 04/27/24 Time of Service: 08:00 Medical Decision Making In brief, this is a 48-year-old male patient boarding in our emergency department voluntarily for suicidal ideation with a plan to shoot himself with a gun. Initially required observation for medical clearance after potential opioid overdose, now medically cleared, protecting his airway, and hemodynamically appropriate. They have met with the health social work professor and we are awaiting final dispo. They have not required any additional medications for restraint or sedation. The patient was signed out to the oncoming provider prior to final disposition. Remained hemodynamically appropriate, calm, cooperative, and comfortable while under my care. Bisi Jane MD Medical Records Medical records reviewed: Yes I reviewed the patient's medical records. Lab Data Lab results reviewed: Yes I reviewed the patient's lab results. Quality:[facility] Health Related Social Needs: No Data to Display Discharge Plan Discharge Details Chief Complaint: PsychEval Primary Care Provider: Unknown,Unknown ED Provider: Bisi Jane Home Meds and New Rx's Prescriptions: No Action methadone 10 MG/ML concentrate 190 mg PO DAILY Patient Comments: Pt states he takes 190 mg daily 02/19/24 gabapentin 600 MG tablet 1,200 mg PO TID sertraline 100 MG tablet 200 mg PO DAILY Patient Comments: needs prescription methylphenidate HCl [Concerta] 36 MG tablet extended release 24hr 2 tab PO DAILY Patient Comments: confirmed by pt pharmacy clonazepam 1 mg tablet 1 mg PO TID Patient Comments: TAKE 1 TABLET BY MOUTH THREE TIMES DAILY methylphenidate HCl 54 mg tablet extended release 24hr 54 mg PO BID Patient Comments: TAKE 1 TABLET BY MOUTH TWICE DAILY. lisinopril 10 mg tablet 10 mg PO DAILY Patient Comments: take 1/2 tablet by mouth daily for 2 days then take 1 tablet by mouth daily multivitamin with folic acid [Daily-Nehemiah (with folic acid)] 400 mcg tablet 1 tab PO DAILY Patient Comments: take 1 tablet by mouth daily with food nicotine (polacrilex) 4 mg gum 4 mg PO PRN Patient Comments: CHEW 1 PIECE OF GUM EVERY 2 HOURS BY MOUTH FOR SMOKING CESSATION
[2024-04-27] MEDS: Methadone Liquid 10 MG/ML 255 MG PO (08:02)
[2024-04-27] MEDS: Sertraline 100 MG TAB 200 MG PO (08:02)
[2024-04-27] MEDS: Lisinopril 10 MG TAB PO (08:13)
[2024-04-27 08:28] VITALS: BP 147/80; PULSE 81; RESP 18; TEMP 36.5; O2SAT 98
[2024-04-27] MEDS: Multivitamin TAB 1 TAB PO (10:56)
[2024-04-27] MEDS: Acetaminophen 500 MG TAB 1000 MG PO (10:56)
--- NOTE | 2024-04-27 13:29 | CMSP_ITS ---
Date of service: 04/27/24 Time of Service: 13:29 Care Management Safety Plan Status Status: Voluntary Reason for Wait Reason for Wait: Inpatient Admission (Awaiting inpatient psych placement at an accepting facility. [facility] is sending referrals) Safety Plan Safety Plan: VOLUNTARY FOR INPATIENT PSYCHIATRIC STABILIZATION.? Patient is appropriate in all interactions since arriving at [facility]; Pt has demonstrated appropriate coping and communication skills and has articulated needs, concerns and is fully engaged during staff interactions. Safety plan has been established with patient, and care team, to adhere to patient goals, identify restrictions based on behavioral status, address nutrition, and determine allowed personal belongings, tools for hygiene and pers onal care. Determine level of activity including ambulation, level of supervision, visitors, and determine privileges based on behaviors and level of engagement by pt. SAFETY PLAN: 1. Will remain on suicide precautions, in paper clothes 2. Will remain in Zone B under direct supervision of one-on-one staff at all times provided by [employer]; MAZIN, TITLE I PARAPROFESSIONAL vocal performer. 3. May have paper cups, plates, finger foods as well as a cardboard spoon with which to eat meals. 4. Follow [facility] Management of the Admitted Behavioral Health Patient policy. 5. Shower available in Zone B without restriction. 6. Personal belongings-soft items permitted at RN discretion. 7. Visitors, at RN discretion. 8. Activities: soft cart items approved per RN discretion. 9.? Bathroom available in Zone B without restriction. 10. Phone: incoming/outgoing calls limited to [facility] cordless phone at RN discretion. Due to VOLUNTARY status, if patient wishes to leave [facility], staff will contact [facility] Crisis Screener ([phone]) and Outpatient Program Coordinator ([phone]) as soon as possible. In the event of elopement, notify [facility] Police ([phone]). Patient is currently voluntarily at [facility] and seeking inpatient admission when a bed becomes available. [facility] Frontline Electron Beam Photo Mask Technician will continue seeking placement. Please contact the Outpatient Program Coordinator ([phone]) and [facility] Electron Beam Photo Mask Technician ([phone]) for any needed changes in the Safety Plan. Safety plan has been provided to interdepartmental care team.
--- NOTE | 2024-04-27 13:29 | PDOC.CMSAFE ---
Date of service: 04/27/24 Time of Service: 13:29 Care Management Safety Plan Status Status: Voluntary Reason for Wait Reason for Wait: Inpatient Admission (Awaiting inpatient psych placement at an accepting facility. [facility] is sending referrals) Safety Plan Safety Plan: VOLUNTARY FOR INPATIENT PSYCHIATRIC STABILIZATION.? Patient is appropriate in all interactions since arriving at [facility]; Pt has demonstrated appropriate coping and communication skills and has articulated needs, concerns and is fully engaged during staff interactions. Safety plan has been established with patient, and care team, to adhere to patient goals, identify restrictions based on behavioral status, address nutrition, and determine allowed personal belongings, tools for hygiene and personal care. Determine level of activity including ambulation, level of supervision, visitors, and determine privileges based on behaviors and level of engagement by pt. SAFETY PLAN: 1. Will remain on suicide precautions, in paper clothes 2. Will remain in Zone B under direct supervision of one-on-one staff at all times provided by [employer]; MAZIN, DOOR CLOSER MECHANIC soft sugar operator head. 3. May have paper cups, plates, finger foods as well as a cardboard spoon with which to eat meals. 4. Follow [facility] Management of the Admitted Behavioral Health Patient policy. 5. Shower available in Zone B without restriction. 6. Personal belongings-soft items permitted at RN discretion. 7. Visitors, at RN discretion. 8. Activities: soft cart items approved per RN discretion. 9.? Bathroom available in Zone B without restriction. 10. Phone: incoming/outgoing calls limited to [facility] cordless phone at RN discretion. Due to VOLUNTARY status, if patient wishes to leave [facility], staff will contact [facility] Crisis Screener ([phone]) and Mussel Farmer ([phone]) as soon as possible. In the event of elopement, notify [facility] Police ([phone]). Patient is currently voluntarily at [facility] and seeking inpatient admission when a bed becomes available. [facility] Frontline Media/Instructional Designer will continue seeking placement. Please contact the Mussel Farmer ([phone]) and [facility] Media/Instructional Designer ([phone]) for any needed changes in the Safety Plan. Safety plan has been provided to interdepartmental care team.
[2024-04-27 18:07] LABS: Bilirubin Negative (Negative); Blood Negative (Negative); Clarity Sl Cloudy (Clear); Glucose Negative (Negative); Ketones Negative (Negative); Leukocyte Esterase Negative (Negative); Nitrite Positive (Negative); Specific Gravity >= 1.030 (1.005-1.025)
[2024-04-27 18:17] LABS: Bacteria Many HPF (Negative); C & S Indicated? Yes; Casts Negative LPF (Negative); Crystals Negative HPF (Negative); Epithelial Cells Negative HPF (Negative); Mucus Negative (Negative); RBC Negative HPF (0-2); WBC 20-50 HPF (0-5)
[2024-04-27 18:20] LABS: *AMPHETAMINES SCREEN URINE Negative (Negative); *BARBITURATES SCREEN URINE Negative (Negative); *BENZODIAZEPINES SCREEN URINE Positive (Negative); Cannabinoids THC Negative (Negative); Cocaine Screen,Urine Positive (Negative); METHADONE URINE SCREEN Positive (Negative); OPIATES URINE SCREEN Negative (Negative)
[2024-04-27 18:23] LABS: Tricyclic Antidepressants Negative (Negative)
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
--- NOTE | 2024-04-27 21:43 | W.EDPROG ---
Date of service: 04/27/24 Time of Service: 17:00 Medical Decision Making This patient was signed out to me. Please see previous notes for H&P and initial eval. In brief, 48yo M presenting with SI. Medically cleared, home meds ordered. Signed out pending voluntary inaptient placement; if wants to leave would need re-eval. UA resulted as suggestive of infection. Started on course of cefpodoxime for complicated UTI. No behavioral events on my shift. Will be signed out to oncoming physician, plan as above. Quality:SDOH Health Related Social Needs: No Data to Display Discharge Plan Discharge Details Chief Complaint: PsychEval Primary Care Provider: Unknown,Unknown ED Provider: Kelley Brasher Home Meds and New Rx's Prescriptions: No Action methadone 10 MG/ML concentrate 190 mg PO DAILY Patient Comments: Pt states he takes 190 mg daily 02/19/24 gabapentin 600 MG tablet 1,200 mg PO TID sertraline 100 MG tablet 200 mg PO DAILY Patient Comments: needs prescription methylphenidate HCl [Concerta] 36 MG tablet extended release 24hr 2 tab PO DAILY Patient Comments: confirmed by pt pharmacy clonazepam 1 mg tablet 1 mg PO TID Patient Comments: TAKE 1 TABLET BY MOUTH THREE TIMES DAILY methylphenidate HCl 54 mg tablet extended release 24hr 54 mg PO BID Patient Comments: TAKE 1 TABLET BY MOUTH TWICE DAILY. lisinopril 10 mg tablet 10 mg PO DAILY Patient Comments: take 1/2 tablet by mouth daily for 2 days then take 1 tablet by mouth daily multivitamin with folic acid [Daily-Nehemiah (with folic acid)] 400 mcg tablet 1 tab PO DAILY Patient Comments: take 1 tablet by mouth daily with food nicotine (polacrilex) 4 mg gum 4 mg PO PRN Patient Comments: CHEW 1 PIECE OF GUM EVERY 2 HOURS BY MOUTH FOR SMOKING CESSATION
--- NOTE | 2024-04-28 07:31 | ED.PROG_ITS ---
Date of service: 04/28/24 Time of Service: 07:40 Medical Decision Making In brief, this is a 48-year-old male patient with a history of polysubstance use disorder boarding in our emergency department for suicidal ideation with plan. Prior to my taking over their care, the patient was medically cleared, and has been resting comfortably. They have met with the social sciences research scientist and we are awaiting final dispo. They have not required any additional medications for restraint or sedation. The patient was signed out to the oncoming provider prior to final disposition. Remained hemodynamically appropriate, calm, cooperative, and comfortable while under my care. Bisi Jane MD Medical Records Medical records reviewed: Yes I reviewed the patient's medical records. Lab Data Lab results reviewed: Yes I reviewed the patient's lab results. Quality:SDOH Health Related Social Needs: No Data to Display Discharge Plan Discharge Details Chief Complaint: PsychEval Primary Care Provider: Unknown,Unknown ED Provider: Bisi Jane Home Meds and New Rx's Prescriptions: No Action methadone 10 MG/ML concentrate 190 mg PO DAILY Patient Comments: Pt states he takes 190 mg daily 02/19/24 gabapentin 600 MG tablet 1,200 mg PO TID sertraline 100 MG tablet 200 mg PO DAILY Patient Comments: needs prescription methylphenidate HCl [Concerta] 36 MG tablet extended release 24hr 2 tab PO DAILY Patient Comments: confirmed by pt pharmacy clonazepam 1 mg tablet 1 mg PO TID Patient Comments: TAKE 1 TABLET BY MOUTH THREE TIMES DAILY methylphenidate HCl 54 mg tablet extended release 24hr 54 mg PO BID Patient Comments: TAKE 1 TABLET BY MOUTH TWICE DAILY. lisinopril 10 mg tablet 10 mg PO DAILY Patient Comments: take 1/2 tablet by mouth daily for 2 days then take 1 tablet by mouth daily multivitamin with folic acid [Daily-Nehemiah (with folic acid)] 400 mcg tablet 1 tab PO DAILY Patient Comments: take 1 tablet by mouth daily with food nicotine (polacrilex) 4 mg gum 4 mg PO PRN Patient Comments: CHEW 1 PIECE OF GUM EVERY 2 HOURS BY MOUTH FOR SMOKING CESSATION
[2024-04-28] MEDS: Acetaminophen 500 MG TAB 1000 MG PO (07:52)
[2024-04-28] MEDS: Cefpodoxime 200 MG TAB PO ×2 (07:52→20:12)
[2024-04-28] MEDS: Methadone Liquid 10 MG/ML 255 MG PO (08:29)
[2024-04-28] MEDS: Lisinopril 10 MG TAB PO (08:39)
[2024-04-28] MEDS: clonazePAM 1 MG TAB PO ×3 (08:39→20:12)
[2024-04-28] MEDS: Gabapentin 600 MG TAB 1200 MG PO ×3 (08:39→20:12)
[2024-04-28] MEDS: Nicotine 4 MG GUM CH ×5 (08:40→20:14)
[2024-04-28] MEDS: Sertraline 100 MG TAB 200 MG PO (08:40)
[2024-04-28] MEDS: Multivitamin TAB 1 TAB PO (08:40)
[2024-04-28 09:01] VITALS: BP 154/85; PULSE 77; RESP 16; TEMP 36.4; O2SAT 97
--- NOTE | 2024-04-28 16:16 | W.EDPROG ---
Date of service: 04/28/24 Time of Service: 16:16 Medical Decision Making This patient was signed out to me. Please see previous notes for H&P and initial eval. In brief, 48yo M presented with SI, medically cleared, pending voluntary placement. Needs re-eval if wants to leave, may meet involuntary criteria. No acute events on my shift. Will be signed out to oncoming physician; plan remains as above. Quality:SDOH Health Related Social Needs: No Data to Display Discharge Plan Discharge Details Chief Complaint: PsychEval Primary Care Provider: Unknown,Unknown ED Provider: Kelley Brasher Home Meds and New Rx's Prescriptions: No Action methadone 10 MG/ML concentrate 190 mg PO DAILY Patient Comments: Pt states he takes 190 mg daily 02/19/24 gabapentin 600 MG tablet 1,200 mg PO TID sertraline 100 MG tablet 200 mg PO DAILY Patient Comments: needs prescription methylphenidate HCl [Concerta] 36 MG tablet extended release 24hr 2 tab PO DAILY Patient Comments: confirmed by pt pharmacy clonazepam 1 mg tablet 1 mg PO TID Patient Comments: TAKE 1 TABLET BY MOUTH THREE TIMES DAILY methylphenidate HCl 54 mg tablet extended release 24hr 54 mg PO BID Patient Comments: TAKE 1 TABLET BY MOUTH TWICE DAILY. lisinopril 10 mg tablet 10 mg PO DAILY Patient Comments: take 1/2 tablet by mouth daily for 2 days then take 1 tablet by mouth daily multivitamin with folic acid [Daily-Nehemiah (with folic acid)] 400 mcg tablet 1 tab PO DAILY Patient Comments: take 1 tablet by mouth daily with food nicotine (polacrilex) 4 mg gum 4 mg PO PRN Patient Comments: CHEW 1 PIECE OF GUM EVERY 2 HOURS BY MOUTH FOR SMOKING CESSATION
--- NOTE | 2024-04-28 20:17 | MHPN_ITS ---
Date of service: 04/28/24 Time of Service: 20:17 Mental Health Emergency Note Release [facility] release signed:: Yes Reason for Visit The client is new to [facility] as of 04.26.24 when he was initially assessed by [facility]. He reported being hospitalized before at [facility] and the [facility]. The client acknowledged his PCP as [facility]. In the last 2 weeks has the pt presented for ES prior to today?: Unknown Impression The client is a 48-year-old, single, , male who identifies with. pronouns of he him. The client is currently unemployed and is looking for as sistance in reactivating his disability benefits. A client is currently living with his mother and brother. All underrepresented identifiers were honored during this assessment. Initially, the client is stating that he's not suicidal and that he does not need to go inpatient because he does not want inpatient providers to change his current medications, as that is not what I need, This clinician had him speak with [facility] as he is looking for a senior care house following. substance abuse treatment. He later states when that call did not go well than if he has to go back out on the street with the three bags that he has without anywhere to go. He will. in a couple of days end up in the same situation and be back in the hospital. He requests to speak to this clinician again and spends a great deal of time repeating his past trauma that he shared yesterday all the while remaining tearful and not making eye contact. This seemed more of a plea to gain sympathy for his situation. He stated he cannot go back home. This was a change from yesterday's assessment, and he said he spoke to his mother, and she was disappointed in his relapse. This is my last chance. If I am not successful, I will kill myself because I cannot keep doing this to my family. I feel like I am being punished for all the things I have done wrong. We discussed the risk he puts his sons in should this be the choice he makes. Plan/Disposition Recommended Disposition: Hospitalization facilities contacted. Plan: The client has been denied by [facility] due to medical and patient acuity. The client will remain an [facility] pending acceptance to a hospital that can support his mental health, substance abuse and medical issues. He will be evaluated daily until placed. Person reported agreement to plan: Yes Reports/communication Outcome discussed with: ED/Personnel
[2024-04-29] MEDS: Nicotine 4 MG GUM CH ×5 (04:08→14:56)
[2024-04-29] MEDS: Multivitamin TAB 1 TAB PO (08:12)
[2024-04-29] MEDS: Gabapentin 600 MG TAB 1200 MG PO ×2 (08:13→13:39)
[2024-04-29] MEDS: Lisinopril 10 MG TAB PO (08:13)
[2024-04-29] MEDS: Sertraline 100 MG TAB 200 MG PO (08:13)
[2024-04-29] MEDS: clonazePAM 1 MG TAB PO ×3 (08:13→15:45)
--- NOTE | 2024-04-29 08:23 | W.EDPROG ---
Date of service: 04/29/24 Time of Service: 08:23 Medical Decision Making I received signout on this 48-year-old male with suicidal ideations, currently voluntary, pending placement. Stable throughout the night, no interventions were needed. If patient attempts to leave, he should be transition to involuntary. He was found to have a UTI for which he is receiving treatment. Home medications ordered. Will order regular diet on safety tray. 1:37PM I spoke with Antonietta Iglesias from [facility] who agreed to accept the patient for hospitalization. She was going to touch base with medical team concerning the patient's UTI. Nurses will call with final update. 04/30 Late charting due to patient care. I signed transfer paperwork to have the patient transferred to the [facility]. Quality:SDOH Health Related Social Needs: No Data to Display Discharge Plan Disposition Patient Disposition: Psychiatric Hospital/Unit Specific Psychiatric Facility: [facility] Discharge Details Clinical Impression: Suicidal ideation Primary Care Provider: Unknown,Unknown ED Provider: Anmol Rendon [place] Meds and New Rx's Prescriptions: No Action methadone 10 MG/ML concentrate 190 mg PO DAILY Patient Comments: Pt states he takes 190 mg daily 02/19/24 gabapentin 600 MG tablet 1,200 mg PO TID sertraline 100 MG tablet 200 mg PO DAILY Patient Comments: needs prescription methylphenidate HCl [Concerta] 36 MG tablet extended release 24hr 2 tab PO DAILY Patient Comments: confirmed by pt pharmacy clonazepam 1 mg tablet 1 mg PO TID Patient Comments: TAKE 1 TABLET BY MOUTH THREE TIMES DAILY methylphenidate HCl 54 mg tablet extended release 24hr 54 mg PO BID Patient Comments: TAKE 1 TABLET BY MOUTH TWICE DAILY. lisinopril 10 mg tablet 10 mg PO DAILY Patient Comments: take 1/2 tablet by mouth daily for 2 days then take 1 tablet by mouth daily multivitamin with folic acid [Daily-Nehemiah (with folic acid)] 400 mcg tablet 1 tab PO DAILY Patient Comments: take 1 tablet by mouth daily with food nicotine (polacrilex) 4 mg gum 4 mg PO PRN Patient Comments: CHEW 1 PIECE OF GUM EVERY 2 HOURS BY MOUTH FOR SMOKING CESSATION Discharge Data Discharge Date/Time-TO BE ENTERED AT DEPARTURE: 04/29/24 16:37
[2024-04-29 08:30] VITALS: BP 151/95; PULSE 85; RESP 19; TEMP 36.8; O2SAT 98
[2024-04-29] MEDS: Methadone Liquid 10 MG/ML 255 MG PO (08:36)
[2024-04-29] MEDS: Cefpodoxime 200 MG TAB PO (08:51)
--- NOTE | 2024-04-29 13:53 | MHPN_ITS ---
Date of service: 04/29/24 Time of Service: 10:55 PHQ-9 Over the last 2 weeks, how often have you been bothered by any of the following problems? 1. Little interest or pleasure in doing things: more than half the days 2. Feeling down, depressed, or hopeless: more than half the days 3. Trouble falling or staying asleep, or sleeping too much: nearly every day 4. Feeling tired or having little energy: more than half the days 5. Poor appetite or overeating: more than half the days 6. Feeling bad about yourself - or that you are a failure or have let yourself and your family down: more than half the days 7. Trouble concentrating on things, such as reading the newspaper or watching television: more than half the days 8. Moving or speaking so slowly that other people could have noticed? - Or the opposite - being so fidgety or restless that you have been moving around a lot more than usual: more than half the days 9. Thoughts that you would be better off or of hurting yourself in some way: more than half the days Total score: 19 If you checked off any problems, how difficult have these problems made it for you to do your work, take care of things at home, or get along with other people?: very difficult PHQ-9 Results: Positive Source: Developed by Drs. Walker Mauro, Griselda Lee, Osbaldo Tomlin and colleagues, with an educational shelby from [employer]. Suicide Severity Rate CSSRS Have you wished you were or wished you could go to sleep and not wake up?: No Have you actually had any thoughts of killing yourself?: No CSSRS2 Have you been thinking about how you might do this?: No Have you had these thoughts and had some intention of acting on them?: No Have you started to work out or worked out the details of how to kill yourself? Do you intend to carry out this plan?: No CSSRS3 Have you ever done anything, started to do anything or prepared to do anything to end your life?: No CSSRS4 Was this within the past three months?: No Screening Score Total Score: 0 Screening: Negative Mental Health Emergency Note Release [facility] release signed:: Yes Reason for Visit Mr Li is a 48 year old single male who resides with his mother in [facility] [place]. The client presented as anxious and agitated within his room in zone b [facility]. The client fidgeted throughout the reassessment. The client presented as cooperative throughout the reassessment and engaged in the questions asked. When answering the questions the client's answers included information with loose associations to the original question. The client states having SI. The client states going through grief with the loss of his brother. The client states if I find the person who killed my brother then I will kill them. The client states having anxiety about medication changes if he goes in patient. The client is seeking voluntary help and will wait for in patient placement at the [facility]. In the last 2 weeks has the pt presented for ES prior to today?: No Client Information Client is: New Well Housed: Yes Non Suicidal Self Injury Current: No History: No Safety Risk/Harm to Self or Others Current Ideation to Harm Self or Others: Yes to self. Intent: yes, has intent. Plan: no.does not have a plan. and to others. Intent: yes, has intent to harm others Plan: no, does not have a plan. Risk: Does risk to harm exist?: yes. Risk: Moderate Risk Duty to warn indicated: No Asssessment/Mental Status Appearance: Unremarkable Attitude: Cooperative and Friendly Behavior: Agitated Speech: Normal Affect: Normal Mood: Stressed, Depressed and Anxious Thought process: Loose associations and Goal directed Hallucinations: No Delusions: No Attention: Unremarkable Perception: Not impaired Orientation: Fully orientated Memory: Intact Insight: Fair Judgement: Fair Neurovegetative Symptoms Sleep: Increase Appetitie: No change Interests: No change Energy: No change Libido: Not applicable Substance Use: Drug Issues: Dependence Do you use nicotine?: Yes Have you used substances in the last 7 days?: yes, The client states having used Heroin and Methamphetamines Additional Issues: Assaultive/Threatening Behavior: No Medical Concerns: No Client engaged in active self harm w/weapon: No Threatening to run away: No Child reported abuse/neglect: No Voluntarily presenting for services: Yes Domestic violence is a concern: No Extreme Psychosis or extreme behavior is present: No Impression Mr Li is a 48 year old single male who resides with his mother in [facility] [place] [facility] [place]. The client presented as anxious and agitated within his room in zone b of [facility]. The client fidgeted throughout the reassessment. The client presented as cooperative throughout the reassessment and engaged in the questions asked. When answering the questions the client's answers included information with loose associations to the original question. The client states having SI. The client states going through grief with the loss of his brother. The client states if I find the person who killed my brother then I will kill them. The client states having anxiety about medication changes if he goes in patient. The client is seeking voluntary help and will wait for in patient placement at the [facility]. Plan/Disposition Recommended Disposition: Hospitalization facilities contacted. Plan: The client will wait in the ED for in patient placement. Reports/communication Outcome discussed with: ED/Personnel
--- NOTE | 2024-04-29 15:53 | NUR.NOTE ---
Spoke with Pt. about transport to [facility] and his acceptance. Two Pt's are both being transferred to same facility at same time. Permission requested from Pt. to be transferred to facility along with other Pt. in same vehicle/ambulance. Pt. get's along with other Pt well and stated he was fine with that and looked forward to it.Nursing Note:
--- NOTE | 2024-04-29 16:40 | PDOC.CMPRO ---
Date of service: 04/29/24 Time of Service: 16:40 Care Management Progress Note Progress Note Text Progress Note Text: CM huddled with staff regarding Dima's plan of care. Per staff report, he has been appropriate in interactions, and has been sleeping a lot. Per report, he has been accepted at [facility], transport is being arranged. CM will continue to follow. Social Determinants of Health Screening Social Determinants of Health last assessed: 04/29/24 Will the Patient Participate in the Screening?: Yes Do you worry about having a steady place to live?: no Problems where you live: no known problems In the past 12 months, have you had to go without electric, gas, oil or water in your home?: no Have you or anyone in your house had to go without enough food to eat?: no Has lack of transportation kept you from medical appointments or from doing things needed for daily living?: no Has anyone in your life made you feel unsafe or unsupported?: no How hard is it for you to pay for the very basics like food, housing, medical care, and heating? Would you say it is:: Not hard at all Do you want help finding or keeping work or a job?: I do not need or want help If for any reason you need help with day-to-day activities such as bathing, preparing meals, shopping, managing finances, etc., do you get the help you need?: I don?t need any help How often do you feel lonely or isolated from those around you?: Never Do you speak a language other than [place] Citizen at home?: No Does the patient want assistance with any of the above?: No
== END 2024-04-29 16:37 ==
PROVIDERS: Physician Assistant; Emergency Provider Emergency Medicine
DX: R45.851 Suicidal ideations (principal); F19.10 Other psychoactive substance abuse, uncomplicated; N39.0 Urinary tract infection, site not specified; F17.210 Nicotine dependence, cigarettes, uncomplicated; Z59.00 Homelessness unspecified
CPT/HCPCS: 00123; 80053; 80307; 87077; 96127; 99285; 81003; 81015; 83605; 84439; 84443; 85025; 87086; 87186

== ENCOUNTER 2024-05-31 11:28 | Emergency (ER) | payer MEDICAID, SELFPAY ==
[2024-05-31 11:45] VITALS: BP 130/86; PULSE 90; RESP 16; TEMP 37.1; O2SAT 98
[2024-05-31 12:22] LABS: *AMPHETAMINES SCREEN URINE Negative (Negative); *BARBITURATES SCREEN URINE Negative (Negative); *BENZODIAZEPINES SCREEN URINE Negative (Negative); Cannabinoids THC Negative (Negative); Cocaine Screen,Urine Negative (Negative); METHADONE URINE SCREEN Positive (Negative); OPIATES URINE SCREEN Negative (Negative)
[2024-05-31 12:24] LABS: Tricyclic Antidepressants Negative (Negative)
--- NOTE | 2024-05-31 14:14 | W.ED.GENAD ---
Discharge Plan Discharge Details Chief Complaint: PsychEval Clinical Impression: Polypharmacy Primary Care Provider: Unknown,Unknown ED Provider: Lyn Betancourt Home Meds and New Rx's Prescriptions: No Action methadone 10 MG/ML concentrate 255 mg PO DAILY Patient Comments: Pt states he takes 190 mg daily 02/19/24 sertraline 100 MG tablet 200 mg PO DAILY Patient Comments: needs prescription clonazepam 1 mg tablet 1 mg PO TID Patient Comments: TAKE 1 TABLET BY MOUTH THREE TIMES DAILY methylphenidate HCl 54 mg tablet extended release 24hr 54 mg PO BID Patient Comments: TAKE 1 TABLET BY MOUTH TWICE DAILY. lisinopril 10 mg tablet 10 mg PO DAILY Patient Comments: take 1/2 tablet by mouth daily for 2 days then take 1 tablet by mouth daily multivitamin with folic acid [Daily-Nehemiah (with folic acid)] 400 mcg tablet 1 tab PO DAILY Patient Comments: take 1 tablet by mouth daily with food nicotine (polacrilex) 4 mg gum 4 mg PO Q2H PRN Patient Comments: CHEW 1 PIECE OF GUM EVERY 2 HOURS BY MOUTH FOR SMOKING CESSATION naproxen sodium 550 mg tablet 550 mg PO BID Patient Comments: take 1 tablet by mouth twice a day diphenhydramine HCl [[id number]] 25 mg tablet 25 mg PO BID PRN Rx Instructions: PRN anxiety. haloperidol 5 mg tablet 5 mg PO BID PRN Patient Comments: take 1 tablet by mouth UPTO twice a day if needed for AGITATION Rx Instructions: PRN agitation. gabapentin 400 mg capsule 1,200 mg PO TID Patient Comments: take 3 capsule by mouth three times a day HPI General Date/Time Provider Initiated Documentation: 05/31/24 11:42. Limitations to Documentation: no limitations. Information obtained by: patient. HPI Narrative: 48-year-old gentleman with past medical history of polysubstance abuse, long-term opiate maintenance therapy on methadone, thoracic osteomyelitis presents for evaluation from the [facility] clinic. The physician there has sent the patient because there is concern for some overmedication. Patient was recently admitted to [facility] for suicidal ideation. During his therapy there, he was started on clonazepam 1 mg 3 times daily. He has never been on this medication before and it is thought now that this medication has been too strong for him and is causing some mood changes and behavioral changes that the physician Dr. Glynn who is familiar with him has never seen be he did have a hatchet while at the [facility] that he says he was bored and just sharpening, but he denies any suicidal ideation and denies any homicidal ideation. Patient is also on Concerta twice daily that he has been snorting. Related Data Home Medications ?Medication ?Instructions ?Recorded ?Confirmed methadone 10 mg/mL oral concentrate 255 mg PO DAILY 11/11/14 05/31/24 sertraline 100 mg tablet 200 mg PO DAILY 07/18/16 03/02/24 clonazepam 1 mg tablet 1 mg PO TID 03/02/24 05/31/24 methylphenidate HCl 54 mg 54 mg PO BID 03/02/24 05/31/24 tablet,extended release 24 hr lisinopril 10 mg tablet 10 mg PO DAILY 04/26/24 05/31/24 multivitamin with folic acid 400 1 tab PO DAILY 04/26/24 05/31/24 mcg tablet (Daily-Nehemiah (with folic acid)) nicotine (polacrilex) 4 mg gum 4 mg PO Q2H PRN 04/26/24 05/31/24 diphenhydramine HCl 25 mg tablet 25 mg PO BID PRN 05/31/24 05/31/24 ([id number]) gabapentin 400 mg capsule 1,200 mg PO TID 05/31/24 05/31/24 haloperidol 5 mg tablet 5 mg PO BID PRN 05/31/24 05/31/24 naproxen sodium 550 mg tablet 550 mg PO BID 05/31/24 05/31/24 Allergies Allergy/AdvReac Type Severity Reaction Status Date / Time No Known Allergies Allergy Unverified 05/31/24 12:40 General Stated Complaint: PsychEval SHAUNA: 2 Exam Narrative Exam Narrative: Review of Systems: All systems reviewed & are unremarkable except as noted in HPI and below Well-developed NCAT PERRL, normal conjunctiva RRR, no murmur Unlabored respiratory effort, clear bilaterally Nondistended abdomen Clear and coherent speech and communication. Voluntarily here to get some understanding about potential medication adjustments denies suicidality or homicidality Course Vital Signs Vital signs: Vital Signs Temperature 37.1 C 05/31/24 11:45 Pulse 90 05/31/24 11:45 Respiratory Rate 16 05/31/24 11:45 Blood Pressure 130/86 05/31/24 11:45 Pulse Oximetry 98 05/31/24 11:45 Temperature 37.1 C 05/31/24 11:45 Temperature Source Oral 05/31/24 11:45 Pulse 90 05/31/24 11:45 Respiratory Rate 16 05/31/24 11:45 Blood Pressure 130/86 05/31/24 11:45 Blood Pressure Position Sitting 05/31/24 11:45 Pulse Oximetry 98 05/31/24 11:45 Oxygen Delivery Method Room Air 05/31/24 11:45 Oxygen Flow Rate 0 05/31/24 11:45 Pain Level 0 05/31/24 11:45 Lab/Test Results Lab/Test Results: Laboratory Tests Range/Units 05/31/24 11:45 Urine Opiates Screen (Negative) Negative Urine Methadone Screen (Negative) Positive A Ur Barbiturates Screen (Negative) Negative Ur Tricyclics Screen (Negative) Negative Ur Amphetamines Screen (Negative) Negative U Benzodiazepines Scrn (Negative) Negative Urine Cocaine Screen (Negative) Negative Ur THC Screen (Negative) Negative Medical Decision Making Emergent evaluation of polysubstance use and some altered mental status. Patient referred from the [facility] clinic by the physician there. Concern for some behavioral changes that they are concerned is secondary to over prescribed clonazepam. They stated that they reach out to [facility] and feel like the patient should return there for clonazepam taper. They report that he needs to have a reduction of 0.5 mg every 5 days. I reviewed the medication list and the patient is on multiple severely sedating medications however he is able to have a conversation with me and does not endorse anything that would be concerning for an involuntary hold. At this time he is voluntarily here. I will get a psychiatric consult to evaluate his need for inpatient hospitalization. Lab work reviewed, no leukocytosis, chronic anemia is noted. No electrolyte derangement or organ dysfunction. Drug screen is positive for methadone. His alcohol level is negative. At this time he is medically cleared. His daily medications have been ordered with a 0.5 mg reduction in his clonazepam to be given at at the noontime dose. He is still pending telepsych consult, but is willing to go to [facility] for this if he is excepted there. Quality:SDOH Health Related Social Needs: Health related social needs material hardship(utilities) (Z59.12), problems related to housing/economic circumstances (Z59.89), problems finding work (Z56.9), problems with daily activities (Z73.9), feeling lonely/isolated (Z60.8) PFSH All Active Problems (Updated 05/31/24 @ 14:25 by Lyn Betancourt MD) Polypharmacy (Acute) Smoker (Chronic) Restless leg syndrome (Chronic) Urinary retention (Chronic) ADD (attention deficit disorder) (Chronic) Hepatitis C (Chronic) Polydrug abuse, continuous (Acute 07/22/14) Family History Mother Essential hypertension Father No problems noted. Brother Diabetes Essential hypertension Social History Smoking/Tobacco Use Status: Current every day Smoking risk assessment performed?: Yes Alcohol Intake: never Drug use: Daily Substance use type: sedatives and IV drugs Details: current use Housing: apartment Do you feel safe at home: Yes Do you feel safe in your relationship?: Yes
[2024-05-31 14:23] LABS: Abs Immature Grans 0.01 10^3/uL (0.0-0.06); Absolute Basophil Count 0.04 10^3/uL (0.0-0.2); Absolute Eosinophil Count 0.39 10^3/uL (0.0-0.7); Absolute Lymphocyte Count 1.63 10^3/uL (1.2-3.4); Absolute Monocyte Count 0.72 10^3/uL (0.1-0.8); Absolute Neutrophil Count 3.62 10^3/uL (1.2-6.7); Basophils % 0.6 %; Eosinophils % 6.1 %; HCT 37.9 % (40.0-50.0); HGB 12.3 g/dL (13.5-17.5); Immature Grans % 0.2 %; Lymphocytes % 25.4 %; MCH 29.4 pg (27.0-33.0); MCHC 32.5 % (32.0-36.0); MCV 91 fL (80-95); MPV 9.2 fL (8.0-11.0); Monocytes % 11.2 %; Neutrophils % 56.5 %; Platelet Count 200 10^3/uL (130-400); RBC 4.19 10^6/uL (4.36-5.78); RDW 13.9 % (11.8-14.1); RDW-SD 46.3 fL; WBC 6.41 10^3/uL (4.4-10.8)
[2024-05-31 14:38] LABS: ALT 66 U/L (16-63); AST 36 U/L (15-37); Albumin 3.7 g/dL (3.4-5.0); Alkaline Phosphatase 95 U/L (46-116); Anion Gap 6.4 mmol/L (3-11); BUN 30 mg/dL (7-18); Bilirubin, Total 0.3 mg/dL (0.2-1.0); CO2 29.6 mmol/L (21.0-32.0); CREATININE 0.8 mg/dL (0.70-1.30); Calcium 8.9 mg/dL (8.5-10.1); Chloride 107 mmol/L (98-107); Estimated GFR 108.49 (mL/min/1.73m2); Glucose 72 mg/dL (74-106); Potassium 4.3 mmol/L (3.5-5.1); Sodium 143 mmol/L (136-145); Total Protein 7.7 g/dL (6.4-8.2)
[2024-05-31 14:39] LABS: ETHANOL BLOOD < 3.0 mg/dL (<10)
[2024-05-31] MEDS: Gabapentin 300 MG CAP 1200 MG PO ×2 (14:57→19:25)
--- NOTE | 2024-05-31 15:08 | CMSP_ITS ---
Date of service: 05/31/24 Time of Service: 11:30 Care Management Safety Plan Status Status: Voluntary Reason for Wait Reason for Wait: Inpatient Admission Safety Plan Safety Plan: Safety plan has been established with patient, and care team, to adhere to patient goals, identify restrictions based on behavioral status, address nutrition, and determine allowed personal belongings, tools for hygiene and personal care. Determine level of activity including ambulation, level of supervision, visitors, and determine privileges based on behaviors and level of engagement by pt. VOLUNTARY SAFETY PLAN: 1. Will remain on suicide precautions, in paper clothes 2. Will remain in Zone B under direct supervision of one-on-one staff at all times provided by [employer]; MAZIN, DIRECTOR CREDIT RISK buffing machine operator semiautomatic. 3. May have paper cups, plates, finger foods as well as a cardboard spoon with which to eat meals. 4. Follow [facility] Management of the Admitted Behavioral Health Patient policy. 5. Shower available in Zone B without restriction. 6. Personal belongings-soft items permitted at RN discretion. 7. Visitors-none at this time. 8. Activities: soft cart items approved per RN discretion. 9.? Bathroom available in Zone B without restriction. 10. Phone: limited to [facility] cordless phone at RN discretion. Due to VOLUNTARY status, if patient wishes to leave [facility], staff will contact [facility] Crisis Screener ([phone]) and Bell Cleaner ([phone]) as soon as possible. In the event of elopement, notify [facility] Police ([phone]). Patient is currently voluntarily at [facility] and seeking inpatient admission when a bed becomes available. [facility] Frontline Steam Table Associate will continue seeking placement. Please contact the Bell Cleaner ([phone]) and [facility] Steam Table Associate ([phone]) for any needed changes in the Safety Plan. Safety plan has been provided to interdepartmental care team
--- NOTE | 2024-05-31 15:08 | PDOC.CMSAFE ---
Date of service: 05/31/24 Time of Service: 11:30 Care Management Safety Plan Status Status: Voluntary Reason for Wait Reason for Wait: Inpatient Admission Safety Plan Safety Plan: Safety plan has been established with patient, and care team, to adhere to patient goals, identify restrictions based on behavioral status, address nutrition, and determine allowed personal belongings, tools for hygiene and personal care. Determine level of activity including ambulation, level of supervision, visitors, and determine privileges based on behaviors and level of engagement by pt. VOLUNTARY SAFETY PLAN: 1. Will remain on suicide precautions, in paper clothes 2. Will remain in Zone B under direct supervision of one-on-one staff at all times provided by [employer]; MAZIN, GEAR DESIGN ENGINEER camp maintenance supervisor. 3. May have paper cups, plates, finger foods as well as a cardboard spoon with which to eat meals. 4. Follow [facility] Management of the Admitted Behavioral Health Patient policy. 5. Shower available in Zone B without restriction. 6. Personal belongings-soft items permitted at RN discretion. 7. Visitors-none at this time. 8. Activities: soft cart items approved per RN discretion. 9.? Bathroom available in Zone B without restriction. 10. Phone: limited to [facility] cordless phone at RN discretion. Due to VOLUNTARY status, if patient wishes to leave [facility], staff will contact [facility] Crisis Screener ([phone]) and Family Medicine Chair ([phone]) as soon as possible. In the event of elopement, notify [facility] Police ([phone]). Patient is currently voluntarily at [facility] and seeking inpatient admission when a bed becomes available. [facility] Frontline Crocheter Hand will continue seeking placement. Please contact the Family Medicine Chair ([phone]) and [facility] Crocheter Hand ([phone]) for any needed changes in the Safety Plan. Safety plan has been provided to interdepartmental care team
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
--- NOTE | 2024-05-31 15:09 | PDOC.CMPRO ---
Date of service: 05/31/24 Time of Service: 11:45 Care Management Progress Note Progress Note Text Progress Note Text: CM huddled with [facility] staff and [facility] B RN. Dima is presently in the ER proper, but will transfer to [facility] once staffing is secured for that area. [facility] reported that Dima can be volatile, so security was made aware of his presence. Dima was evaluated by [facility] this morning, and referrals are being sent for inpatient treatment. MH Services (Omit if N/A) Current Services: [facility] Status Status: Voluntary Reason for Wait: Inpatient Admission Social Determinants of Health Screening Social Determinants of Health last assessed: 05/31/24 Will the Patient Participate in the Screening?: Yes Do you worry about having a steady place to live?: no Problems where you live: no known problems In the past 12 months, have you had to go without electric, gas, oil or water in your home?: yes Have you or anyone in your house had to go without enough food to eat?: no Has lack of transportation kept you from medical appointments or from doing things needed for daily living?: no Has anyone in your life made you feel unsafe or unsupported?: yes How hard is it for you to pay for the very basics like food, housing, medical care, and heating? Would you say it is:: Very hard Do you want help finding or keeping work or a job?: Yes, help finding work If for any reason you need help with day-to-day activities such as bathing, preparing meals, shopping, managing finances, etc., do you get the help you need?: I need a lot more help How often do you feel lonely or isolated from those around you?: Often Do you speak a language other than Kittitian at home?: No Does the patient want assistance with any of the above?: Yes Health Related Social Needs Health related social needs: material hardship(utilities) (Z59.12), problems related to housing/economic circumstances (Z59.89), problems finding work (Z56.9), problems with daily activities (Z73.9) and feeling lonely/isolated (Z60.8)
--- NOTE | 2024-05-31 15:58 | W.EDPROG ---
Date of service: 05/31/24 Time of Service: 15:58 Medical Decision Making This patient was signed out to me. Please see previous notes for H&P and initial eval. In brief, 48yo M presenting for polysubstance abuse and altered mental status. Medically cleared, anticipated transfer to [facility] (recent admission there with multiple medication changes). Pending telepsych consult for med reccs while here. Voluntary and does not meet involuntary admission criteria at this time. Around 174 patient requesting to leave. I discussed with Mr. Li my recommendation that he stay and consider inpatient treatment for medication adjustment as initially planned, and that he risks getting worse (or certainly not getting better). He verbalized understanding of my concerns. During my discussion he is verbose but linear and goal oriented. No psychomotor agitation. Denies SI/HI/AH/VH and does not appear to be responding to internal stimuli. He states to me that he does not want to wait for days to go to [place], but that I know my mom wants me to go. He certainly has capacity and I have no indication to hold him against his will. After our discussion he did agree to stay and await voluntary placement. Telepsych consult paged out but not yet performed. Will be signed out to oncoming physician, plan remains as above. Quality:SDOH Health Related Social Needs: Health related social needs material hardship(utilities) (Z59.12), problems related to housing/economic circumstances (Z59.89), problems finding work (Z56.9), problems with daily activities (Z73.9), feeling lonely/isolated (Z60.8) Discharge Plan Discharge Details Chief Complaint: PsychEval Clinical Impression: Polypharmacy Primary Care Provider: Unknown,Unknown ED Provider: Kelley Brasher Home Meds and New Rx's Prescriptions: No Action methadone 10 MG/ML concentrate 255 mg PO DAILY Patient Comments: Pt states he takes 190 mg daily 02/19/24 sertraline 100 MG tablet 200 mg PO DAILY Patient Comments: needs prescription clonazepam 1 mg tablet 1 mg PO TID Patient Comments: TAKE 1 TABLET BY MOUTH THREE TIMES DAILY methylphenidate HCl 54 mg tablet extended release 24hr 54 mg PO BID Patient Comments: TAKE 1 TABLET BY MOUTH TWICE DAILY. lisinopril 10 mg tablet 10 mg PO DAILY Patient Comments: take 1/2 tablet by mouth daily for 2 days then take 1 tablet by mouth daily multivitamin with folic acid [Daily-Nehemiah (with folic acid)] 400 mcg tablet 1 tab PO DAILY Patient Comments: take 1 tablet by mouth daily with food nicotine (polacrilex) 4 mg gum 4 mg PO Q2H PRN Patient Comments: CHEW 1 PIECE OF GUM EVERY 2 HOURS BY MOUTH FOR SMOKING CESSATION naproxen sodium 550 mg tablet 550 mg PO BID Patient Comments: take 1 tablet by mouth twice a day diphenhydramine HCl [Becku-A-Lmgc] 25 mg tablet 25 mg PO BID PRN Rx Instructions: PRN anxiety. haloperidol 5 mg tablet 5 mg PO BID PRN Patient Comments: take 1 tablet by mouth UPTO twice a day if needed for AGITATION Rx Instructions: PRN agitation. gabapentin 400 mg capsule 1,200 mg PO TID Patient Comments: take 3 capsule by mouth three times a day
[2024-05-31] MEDS: Nicotine 2 MG GUM CH ×2 (16:14→17:22)
[2024-05-31] MEDS: clonazePAM 1 MG TAB PO (19:25)
[2024-06-01] MEDS: clonazePAM 1 MG TAB PO ×2 (08:02→19:12)
[2024-06-01] MEDS: Gabapentin 300 MG CAP 1200 MG PO ×3 (08:02→19:12)
[2024-06-01] MEDS: Lisinopril 10 MG TAB PO (08:02)
[2024-06-01 08:11] VITALS: BP 143/84; PULSE 69; RESP 16; TEMP 35.8; O2SAT 98
[2024-06-01] MEDS: Methadone Liquid 10 MG/ML 255 MG PO (09:02)
--- NOTE | 2024-06-01 09:36 | CMSP_ITS ---
Date of service: 06/01/24 Time of Service: 09:36 Care Management Safety Plan Status Status: Voluntary Reason for Wait Reason for Wait: Inpatient Admission Safety Plan Safety Plan: VOLUNTARY FOR INPATIENT PSYCHIATRIC STABILIZATION.? Patient is appropriate in all interactions since arriving at [facility]; Pt has demonstrated appropriate coping and communication skills, has articulated his or her needs and concerns and is fully engaged during staff interactions. Safety plan has been established with patient, and care team, to adhere to patient goals, identify restrictions based on behavioral status, address nutrition, and determine allowed personal belongings, tools for hygiene and personal care. Determine level of activity including ambulation, level of superv ision, visitors, and determine privileges based on behaviors and level of engagement by pt. VOLUNTARY SAFETY PLAN: 1. Will remain on suicide precautions, in paper clothes. May wear his ball cap. 2. Will remain in Zone B under direct supervision of one-on-one staff at all times provided by [employer]; MAZIN, APRN bush regenerator. 3. May have paper cups, plates, finger foods as well as a cardboard spoon with which to eat meals. 4. Follow [facility] Management of the Admitted Behavioral Health Patient policy. 5. Shower available in Zone B without restriction. 6. Personal belongings-soft items permitted at RN discretion. 7. Visitors-none at this time. 8. Activities: soft cart items approved per RN discretion. 9.? Bathroom available in Zone B without restriction. 10. Phone: limited to [facility] cordless phone at RN discretion. Due to VOLUNTARY status, if patient wishes to leave [facility], staff will contact [facility] Crisis Screener ([phone]) and Firmware Manager ([phone]) as soon as possible. In the event of elopement, notify [facility] Police ([phone]).
[2024-06-01] MEDS: clonazePAM 0.5 MG TAB PO (11:43)
[2024-06-01] MEDS: Nicotine 4 MG GUM CH ×5 (12:53→23:57)
--- NOTE | 2024-06-01 13:43 | ED.PROG_ITS ---
Date of service: 06/01/24 Time of Service: 13:44 Medical Decision Making Care assumed from off going provider. Patient is a 48-year-old gentleman with past medical history of polysubstance abuse, methadone dependence that presented with altered mental status and is currently pending voluntary inpatient [facility] for medication changes. He does appear to be improved from a mental status perspective from yesterday and his dose of clonazepam has been titrated down by 0.5 mg. Quality:SDKS Health Related Social Needs: Health related social needs material hardship(utilitie s) (Z59.12), problems related to housing/economic circumstances (Z59.89), problems finding work (Z56.9), problems with daily activities (Z73.9), feeling lonely/isolated (Z60.8) Discharge Plan Discharge Details Chief Complaint: PsychEval Clinical Impression: Polypharmacy Primary Care Provider: Unknown,Unknown ED Provider: Lyn Betancourt Home Meds and New Rx's Prescriptions: No Action methadone 10 MG/ML concentrate 255 mg PO DAILY Patient Comments: Pt states he takes 190 mg daily 02/19/24 sertraline 100 MG tablet 200 mg PO DAILY Patient Comments: needs prescription clonazepam 1 mg tablet 1 mg PO TID Patient Comments: TAKE 1 TABLET BY MOUTH THREE TIMES DAILY methylphenidate HCl 54 mg tablet extended release 24hr 54 mg PO BID Patient Comments: TAKE 1 TABLET BY MOUTH TWICE DAILY. lisinopril 10 mg tablet 10 mg PO DAILY Patient Comments: take 1/2 tablet by mouth daily for 2 days then take 1 tablet by mouth daily multivitamin with folic acid [Daily-Nehemiah (with folic acid)] 400 mcg tablet 1 tab PO DAILY Patient Comments: take 1 tablet by mouth daily with food nicotine (polacrilex) 4 mg gum 4 mg PO Q2H PRN Patient Comments: CHEW 1 PIECE OF GUM EVERY 2 HOURS BY MOUTH FOR SMOKING CESSATION naproxen sodium 550 mg tablet 550 mg PO BID Patient Comments: take 1 tablet by mouth twice a day diphenhydramine HCl [Kbdox-D-Szbe] 25 mg tablet 25 mg PO BID PRN Rx Instructions: PRN anxiety. haloperidol 5 mg tablet 5 mg PO BID PRN Patient Comments: take 1 tablet by mouth UPTO twice a day if needed for AGITATION Rx Instructions: PRN agitation. gabapentin 400 mg capsule 1,200 mg PO TID Patient Comments: take 3 capsule by mouth three times a day
--- NOTE | 2024-06-01 15:51 | W.EDPROG ---
Date of service: 06/01/24 Time of Service: 15:51 Medical Decision Making his patient was signed out to me. Please see previous notes for H&P and initial eval. In brief, 48yo M with hx PTSD presenting for polysubstance abuse and altered mental status. Medically cleared, hoping for transfer to [facility] (recent admission there with multiple medication changes). Voluntary and does not meet involuntary admission criteria at this time. On my shift no acute events. Will be signed out to oncoming physician, plan remains as above. Quality:SDOH Health Related Social Needs: Health related social needs material hardship(utilities) (Z59.12), problems related to housing/economic circumstances (Z59.89), problems finding work (Z56.9), problems with daily activities (Z73.9), feeling lonely/isolated (Z60.8) Discharge Plan Discharge Details Chief Complaint: PsychEval Clinical Impression: Polypharmacy Primary Care Provider: Unknown,Unknown ED Provider: Kelley Brasher Home Meds and New Rx's Prescriptions: No Action methadone 10 MG/ML concentrate 255 mg PO DAILY Patient Comments: Pt states he takes 190 mg daily 02/19/24 sertraline 100 MG tablet 200 mg PO DAILY Patient Comments: needs prescription clonazepam 1 mg tablet 1 mg PO TID Patient Comments: TAKE 1 TABLET BY MOUTH THREE TIMES DAILY methylphenidate HCl 54 mg tablet extended release 24hr 54 mg PO BID Patient Comments: TAKE 1 TABLET BY MOUTH TWICE DAILY. lisinopril 10 mg tablet 10 mg PO DAILY Patient Comments: take 1/2 tablet by mouth daily for 2 days then take 1 tablet by mouth daily multivitamin with folic acid [Daily-Nehemiah (with folic acid)] 400 mcg tablet 1 tab PO DAILY Patient Comments: take 1 tablet by mouth daily with food nicotine (polacrilex) 4 mg gum 4 mg PO Q2H PRN Patient Comments: CHEW 1 PIECE OF GUM EVERY 2 HOURS BY MOUTH FOR SMOKING CESSATION naproxen sodium 550 mg tablet 550 mg PO BID Patient Comments: take 1 tablet by mouth twice a day diphenhydramine HCl [Vzwye-N-Ndhu] 25 mg tablet 25 mg PO BID PRN Rx Instructions: PRN anxiety. haloperidol 5 mg tablet 5 mg PO BID PRN Patient Comments: take 1 tablet by mouth UPTO twice a day if needed for AGITATION Rx Instructions: PRN agitation. gabapentin 400 mg capsule 1,200 mg PO TID Patient Comments: take 3 capsule by mouth three times a day
--- NOTE | 2024-06-01 16:33 | CMPROGNOTE_ITS ---
Date of service: 06/01/24 Time of Service: 10:00 Care Management Progress Note Progress Note Text Progress Note Text: Cm met with [facility] B staff and Dima today. Dima is upset with how his Concerta is being administered to him. He would like his meds at 8 am and around noon. Med is long acting and provider has a longer interval between dosing. Dima was noted to maintain control while speaking about this issue. RN will speak to provider. Dima met with [facility] via zoom today. MH Services (Omit if N/A) Current Services: [facility] Status Status: Voluntary Reason for Wait: Inpatient Admission Social Determinants of Health Screening Social Determinants of Health last assessed: 06/01/24 Will the Patient Participate in the Screening?: Yes Do you worry about having a steady place to live?: no Problems where you live: no known problems In the past 12 months, have you had to go without electric, gas, oil or water in your home?: yes Have you or anyone in your house had to go without enough food to eat?: no Has lack of transportation kept you from medical appointments or from doing things needed for daily living?: no Has anyone in your life made you feel unsafe or unsupported?: yes How hard is it for you to pay for the very basics like food, housing, medical care, and heating? Would you say it is:: Very hard Do you want help finding or keeping work or a job?: Yes, help finding work If for any reason you need help with day-to-day activities such as bathing, preparing meals, shopping, managing finances, etc., do you get the help you need?: I need a lot more help How often do you feel lonely or isolated from those around you?: Often Do you speak a language other than Turkish at home?: No Does the patient want assistance with any of the above?: Yes Health Related Social Needs Health related social needs: material hardship(utilities) (Z59.12), problems related to housing/economic circumstances (Z59.89), problems finding work (Z56.9), problems with daily activities (Z73.9) and feeling lonely/isolated (Z60.8)
--- NOTE | 2024-06-01 20:36 | MHPN_ITS ---
Date of service: 06/01/24 Time of Service: 19:00 Mental Health Emergency Note Release [facility] release signed:: Yes Reason for Visit In the last 2 weeks has the pt presented for ES prior to today?: Yes, presented at Plan/Disposition Recommended Disposition: Hospitalization facilities contacted. Plan: Client is currently voluntarily waiting for inpatient mental health treatment. Due to dangerous behaviors, client will require evaluation by [facility] for discharge other than transport to inpatient mental health treatment. Person reported agreement to plan: Yes Facilities contacted if Applicable [facility], No bed available [facility] Not accepted, No bed available, [facility] Not accepted, No bed available [facility] Not accepted, No bed available [facility] Not accepted, No bed available Reports/communication Outcome discussed with: ED/Personnel (Provided update to Aroldo at 1900 - verified no beds available, active referral is complete and pending to all referred hospitals.)
--- NOTE | 2024-06-01 20:36 | PDOC.MHPN2 ---
Date of service: 06/01/24 Time of Service: 19:00 Mental Health Emergency Note Release [facility] release signed:: Yes Reason for Visit In the last 2 weeks has the pt presented for ES prior to today?: Yes, presented at Plan/Disposition Recommended Disposition: Hospitalization facilities contacted. Plan: Client is currently voluntarily waiting for inpatient mental health treatment. Due to dangerous behaviors, client will require evaluation by [facility] for discharge other than transport to inpatient mental health treatment. Person reported agreement to plan: Yes Facilities contacted if Applicable [facility], [facility] available [facility] Not accepted, No bed available, [facility] Not accepted, No bed available [facility] Not accepted, No bed available [facility] Not accepted, No bed available Reports/communication Outcome discussed with: ED/Personnel (Provided update to Aroldo at 1900 - verified no beds available, active referral is complete and pending to all referred hospitals.)
[2024-06-01] MEDS: LORazepam 1 MG TAB PO (23:58)
[2024-06-02] MEDS: Nicotine 4 MG GUM CH ×5 (04:34→20:10)
[2024-06-02] MEDS: LORazepam 1 MG TAB 2 MG PO (05:24)
--- NOTE | 2024-06-02 05:38 | ED.PROG_ITS ---
Date of service: 06/02/24 Time of Service: 05:38 Medical Decision Making Patient was transitioned at signout for continued observation until placement. Patient did require 2 dosings of benzodiazepines throughout the night secondary to anxiety. He otherwise remained stable. Quality:SDOH Health Related Social Needs: Health related social needs material hardship(utilitie s) (Z59.12), problems related to housing/economic circumstances (Z59.89), problems finding work (Z56.9), problems with daily activities (Z73.9), feeling lonely/isolated (Z60.8) Discharge Plan Discharge Details Chief Complaint: PsychEval Clinical Impression: Polypharmacy Primary Care Provider: Unknown,Unknown ED Provider: Aroldo Roblero Home Meds and New Rx's Prescriptions: No Action methadone 10 MG/ML concentrate 255 mg PO DAILY Patient Comments: Pt states he takes 190 mg daily 02/19/24 sertraline 100 MG tablet 200 mg PO DAILY Patient Comments: needs prescription clonazepam 1 mg tablet 1 mg PO TID Patient Comments: TAKE 1 TABLET BY MOUTH THREE TIMES DAILY methylphenidate HCl 54 mg tablet extended release 24hr 54 mg PO BID Patient Comments: TAKE 1 TABLET BY MOUTH TWICE DAILY. lisinopril 10 mg tablet 10 mg PO DAILY Patient Comments: take 1/2 tablet by mouth daily for 2 days then take 1 tablet by mouth daily multivitamin with folic acid [Daily-Nehemiah (with folic acid)] 400 mcg tablet 1 tab PO DAILY Patient Comments: take 1 tablet by mouth daily with food nicotine (polacrilex) 4 mg gum 4 mg PO Q2H PRN Patient Comments: CHEW 1 PIECE OF GUM EVERY 2 HOURS BY MOUTH FOR SMOKING CESSATION naproxen sodium 550 mg tablet 550 mg PO BID Patient Comments: take 1 tablet by mouth twice a day diphenhydramine HCl [Diqxy-A-Sool] 25 mg tablet 25 mg PO BID PRN Rx Instructions: PRN anxiety. haloperidol 5 mg tablet 5 mg PO BID PRN Patient Comments: take 1 tablet by mouth UPTO twice a day if needed for AGITATION Rx Instructions: PRN agitation. gabapentin 400 mg capsule 1,200 mg PO TID Patient Comments: take 3 capsule by mouth three times a day
[2024-06-02] MEDS: Methadone Liquid 10 MG/ML 255 MG PO (08:05)
[2024-06-02 08:15] VITALS: BP 145/97; PULSE 69; RESP 16; TEMP 36.4; O2SAT 99
--- NOTE | 2024-06-02 09:31 | PDOC.CMSAFE ---
Date of service: 06/02/24 Time of Service: 09:31 Care Management Safety Plan Status Status: Voluntary Reason for Wait Reason for Wait: Inpatient Admission Safety Plan Safety Plan: VOLUNTARY FOR INPATIENT PSYCHIATRIC STABILIZATION.? Patient is appropriate in all interactions since arriving at [facility]; Pt has demonstrated appropriate coping and communication skills, has articulated his or her needs and concerns and is fully engaged during staff interactions. Safety plan has been established with patient, and care team, to adhere to patient goals, identify restrictions based on behavioral status, address nutrition, and determine allowed personal belongings, tools for hygiene and personal care. Determine level of activity including ambulation, level of supervision, visitors, and determine privileges based on behaviors and level of engagement by pt. VOLUNTARY SAFETY PLAN: 1. Will remain on suicide precautions, in paper clothes. May wear his ball cap. May wear his reading glasses. 2. Will remain in Zone B under direct supervision of one-on-one staff at all times provided by [employer]; MAZIN, NURSES EDUCATOR retail cosmetics sales beauty advisor. 3. May have paper cups, plates, finger foods as well as a cardboard spoon with which to eat meals. 4. Follow [facility] Management of the Admitted Behavioral Health Patient policy. 5. Shower available in Zone B without restriction. 6. Personal belongings-soft items permitted at RN discretion. 7. Visitors-none at this time. 8. Activities: soft cart items approved per RN discretion. 9.? Bathroom available in Zone B without restriction. 10. Phone: limited to [facility] cordless phone at RN discretion. Due to VOLUNTARY status, if patient wishes to leave [facility], staff will contact [facility] Crisis Screener ([phone]) and Cloth Examiner Machine ([phone]) as soon as possible. In the event of elopement, notify [facility] Police ([phone]).
--- NOTE | 2024-06-02 09:33 | CMPROGNOTE_ITS ---
Date of service: 06/02/24 Time of Service: 09:33 Care Management Progress Note Progress Note Text Progress Note Text: CM met with Yana B RN. Dima has not had any issues. Per [facility], referrals are out and Dima is still awaiting a bed. Once accepted, [facility] will transport via secured transport. MH Services (Omit if N/A) Current Services: [facility] Status Status: Voluntary Reason for Wait: Inpatient Admission Social Determinants of Health Screening Social Determinants of Health last assessed: 06/02/24 Will the Patient Participate in the Screening?: Yes Do you worry about having a steady place to live?: no Problems where you live: no known problems In the past 12 months, have you had to go without electric, gas, oil or water in your home?: yes Have you or anyone in your house had to go without enough food to eat?: no Has lack of transportation kept you from medical appointments or from doing things needed for daily living?: no Has anyone in your life made you feel unsafe or unsupported?: yes How hard is it for you to pay for the very basics like food, housing, medical care, and heating? Would you say it is:: Very hard Do you want help finding or keeping work or a job?: Yes, help finding work If for any reason you need help with day-to-day activities such as bathing, preparing meals, shopping, managing finances, etc., do you get the help you need?: I need a lot more help How often do you feel lonely or isolated from those around you?: Often Do you speak a language other than Indonesian at home?: No Does the patient want assistance with any of the above?: Yes Health Related Social Needs Health related social needs: material hardship(utilities) (Z59.12), problems related to housing/economic circumstances (Z59.89), problems finding work (Z56.9), problems with daily activities (Z73.9) and feeling lonely/isolated (Z60.8)
[2024-06-02] MEDS: Lisinopril 10 MG TAB PO (09:40)
[2024-06-02] MEDS: Multivitamin w/Minerals TAB 1 TAB PO (09:40)
[2024-06-02] MEDS: Gabapentin 300 MG CAP 1200 MG PO ×3 (09:40→20:10)
[2024-06-02] MEDS: clonazePAM 1 MG TAB PO ×2 (09:40→20:10)
[2024-06-02] MEDS: clonazePAM 0.5 MG TAB PO (12:39)
--- NOTE | 2024-06-02 13:31 | PDOC.MHPN2 ---
Date of service: 06/02/24 Time of Service: 13:31 PHQ-9 Over the last 2 weeks, how often have you been bothered by any of the following problems? 1. Little interest or pleasure in doing things: not at all 2. Feeling down, depressed, or hopeless: nearly every day 3. Trouble falling or staying asleep, or sleeping too much: more than half the days 4. Feeling tired or having little energy: not at all 5. Poor appetite or overeating: nearly every day 6. Feeling bad about yourself - or that you are a failure or have let yourself and your family down: nearly every day 7. Trouble concentrating on things, such as reading the newspaper or watching television: not at all 8. Moving or speaking so slowly that other people could have noticed? - Or the opposite - being so fidgety or restless that you have been moving around a lot more than usual: more than half the days 9. Thoughts that you would be better off or of hurting yourself in some way: more than half the days Total score: 15 If you checked off any problems, how difficult have these problems made it for you to do your work, take care of things at home, or get along with other people?: extremely difficult PHQ-9 Results: Positive Source: Developed by Drs. Walker Mauro, Griselda Lee, Osbaldo Tomlin and colleagues, with an educational shelby from [employer]. Suicide Severity Rate CSSRS Have you wished you were or wished you could go to sleep and not wake up?: Yes Have you actually had any thoughts of killing yourself?: Yes CSSRS2 Have you been thinking about how you might do this?: Yes Have you had these thoughts and had some intention of acting on them?: Yes Have you started to work out or worked out the details of how to kill yourself? Do you intend to carry out this plan?: Yes CSSRS3 Have you ever done anything, started to do anything or prepared to do anything to end your life?: Yes CSSRS4 Was this within the past three months?: Yes Screening Score Total Score: 8 Screening: Positive Mental Health Emergency Note Release [facility] release signed:: Yes Reason for Visit Reassessment SI/[id number] In the last 2 weeks has the pt presented for ES prior to today?: Yes, presented at Risk: Does risk to harm exist?: No Risk: N/A Asssessment/Mental Status Appearance: Unremarkable Behavior: Unremarkable Speech: Normal Affect: Cogruent with mood Mood: Stressed, Depressed and Anxious Thought process: Flight of ideas Hallucinations: No and No evidence Delusions: No and No evidence Attention: Wandering Perception: Not impaired Orientation: Fully orientated Memory: Intact Insight: Fair Judgement: Fair Neurovegetative Symptoms Sleep: No change Appetitie: Increase Interests: No change Energy: No change Libido: Not applicable Impression A MH reassessment was completed with this client at [facility]. He indicates that he feels the same as yesterday which is a lot better than he had been feeling. When asked to describe his mood, he states that he is excited and then goes on to explain that his excitement is due to pursuing sobriety. The client did explain that he's worried that he's ruined his brain due to prolonged substance use and an OD that left his brain without oxygen for a significant number of minutes. The client states that his appetite is improving and that he had enjoyed two omelets and two oat meals for breakfast. He states that had trouble sleeping last night and was given two separate doses of Ativan to be able to sleep. He was unsure what the dose amount was. He states that he's positive he can detox off from Clozapine on his own despite being warned of the health risks. He is still agreeable to inpatient MH treatment voluntarily. He reports that he's been journaling, doing puzzles, coloring, resting and watching TV while he waits. A team huddle was held once the reassessment was completed with the [facility] nurse, nurse manager coding and care provider. Referrals have been updated. Plan/Disposition Recommended Disposition: Hospitalization facilities contacted. Plan: Client is currently voluntarily waiting for inpatient mental health treatment. Due to dangerous behaviors, client will require evaluation by [facility] for discharge other than transport to inpatient mental health treatment. Person reported agreement to plan: Yes Facilities contacted if Applicable [facility] Not accepted, No bed available [facility] Not accepted, No bed available, [facility] Not accepted, No bed available [facility] Not accepted, No bed available [facility] Not accepted, No bed available Reports/communication Outcome discussed with: ED/Personnel (Zone [facility] nurse, nurse manager coding and urgent care physician. )
--- NOTE | 2024-06-02 14:08 | ED.PROG_ITS ---
Date of service: 06/02/24 Time of Service: 14:09 Medical Decision Making Care assumed from outgoing provider. Patient is still pending voluntary inpatient psychiatric placement for medication adjustments. The patient did receive 2 doses of Ativan overnight due to some anxiety, but has not had no issues throughout the day today. Quality:SDOH Health Related Social Needs: Health related social needs material hardship(utilitie s) (Z59.12), problems related to housing/economic circumstances (Z59.89), problems finding work (Z56.9), problems with daily activities (Z73.9), feeling lonely/isolated (Z60.8) Discharge Plan Discharge Details Chief Complaint: PsychEval Clinical Impression: Polypharmacy Primary Care Provider: Unknown,Unknown ED Provider: Lyn Betancourt Home Meds and New Rx's Prescriptions: No Action methadone 10 MG/ML concentrate 255 mg PO DAILY Patient Comments: Pt states he takes 190 mg daily 02/19/24 sertraline 100 MG tablet 200 mg PO DAILY Patient Comments: needs prescription clonazepam 1 mg tablet 1 mg PO TID Patient Comments: TAKE 1 TABLET BY MOUTH THREE TIMES DAILY methylphenidate HCl 54 mg tablet extended release 24hr 54 mg PO BID Patient Comments: TAKE 1 TABLET BY MOUTH TWICE DAILY. lisinopril 10 mg tablet 10 mg PO DAILY Patient Comments: take 1/2 tablet by mouth daily for 2 days then take 1 tablet by mouth daily multivitamin with folic acid [Daily-Nehemiah (with folic acid)] 400 mcg tablet 1 tab PO DAILY Patient Comments: take 1 tablet by mouth daily with food nicotine (polacrilex) 4 mg gum 4 mg PO Q2H PRN Patient Comments: CHEW 1 PIECE OF GUM EVERY 2 HOURS BY MOUTH FOR SMOKING CESSATION naproxen sodium 550 mg tablet 550 mg PO BID Patient Comments: take 1 tablet by mouth twice a day diphenhydramine HCl [Hleom-R-Puhy] 25 mg tablet 25 mg PO BID PRN Rx Instructions: PRN anxiety. haloperidol 5 mg tablet 5 mg PO BID PRN Patient Comments: take 1 tablet by mouth UPTO twice a day if needed for AGITATION Rx Instructions: PRN agitation. gabapentin 400 mg capsule 1,200 mg PO TID Patient Comments: take 3 capsule by mouth three times a day
--- NOTE | 2024-06-02 14:46 | ED.PROG_ITS ---
Date of service: 06/02/24 Time of Service: 14:46 Medical Decision Making Patient seeking voluntary placement and no reported issues prior shift. No new acute complaints. Will continue to monitor until safe disposition found. Quality:SDOH Health Related Social Needs: Health related social needs material hardship(utilitie s) (Z59.12), problems related to housing/economic circumstances (Z59.89), problems finding work (Z56.9), problems with daily activities (Z73.9), feeling lonely/isolated (Z60.8) Discharge Plan Discharge Details Chief Complaint: PsychEval Clinical Impression: Polypharmacy Primary Care Provider: Unknown,Unknown ED Provider: Alonso Rebolledo Home Meds and New Rx's Prescriptions: No Action methadone 10 MG/ML concentrate 255 mg PO DAILY Patient Comments: Pt states he takes 190 mg daily 02/19/24 sertraline 100 MG tablet 200 mg PO DAILY Patient Comments: needs prescription clonazepam 1 mg tablet 1 mg PO TID Patient Comments: TAKE 1 TABLET BY MOUTH THREE TIMES DAILY methylphenidate HCl 54 mg tablet extended release 24hr 54 mg PO BID Patient Comments: TAKE 1 TABLET BY MOUTH TWICE DAILY. lisinopril 10 mg tablet 10 mg PO DAILY Patient Comments: take 1/2 tablet by mouth daily for 2 days then take 1 tablet by mouth daily multivitamin with folic acid [Daily-Nehemiah (with folic acid)] 400 mcg tablet 1 tab PO DAILY Patient Comments: take 1 tablet by mouth daily with food nicotine (polacrilex) 4 mg gum 4 mg PO Q2H PRN Patient Comments: CHEW 1 PIECE OF GUM EVERY 2 HOURS BY MOUTH FOR SMOKING CESSATION naproxen sodium 550 mg tablet 550 mg PO BID Patient Comments: take 1 tablet by mouth twice a day diphenhydramine HCl [Yaifr-I-Btpd] 25 mg tablet 25 mg PO BID PRN Rx Instructions: PRN anxiety. haloperidol 5 mg tablet 5 mg PO BID PRN Patient Comments: take 1 tablet by mouth UPTO twice a day if needed for AGITATION Rx Instructions: PRN agitation. gabapentin 400 mg capsule 1,200 mg PO TID Patient Comments: take 3 capsule by mouth three times a day
--- NOTE | 2024-06-02 15:33 | NUR.NOTE ---
Chart summary faxed to [facility] for review. Nursing Note:
[2024-06-02] MEDS: LORazepam 1 MG TAB PO (16:05)
[2024-06-03] MEDS: Nicotine 4 MG GUM CH ×7 (04:17→21:11)
--- NOTE | 2024-06-03 06:25 | ED.PROG_ITS ---
Date of service: 06/03/24 Time of Service: 06:25 Medical Decision Making Patient was stable throughout the night. No interventions needed. Pending voluntary placement Quality:SDOH Health Related Social Needs: Health related social needs material hardship(utilitie s) (Z59.12), problems related to housing/economic circumstances (Z59.89), problems finding work (Z56.9), problems with daily activities (Z73.9), feeling lonely/isolated (Z60.8) Discharge Plan Discharge Details Chief Complaint: PsychEval Clinical Impression: Polypharmacy Primary Care Provider: Unknown,Unknown ED Provider: Aroldo Roblero Home Meds and New Rx's Prescriptions: No Action methadone 10 MG/ML concentrate 255 mg PO DAILY Patient Comments: Pt states he takes 190 mg daily 02/19/24 sertraline 100 MG tablet 200 mg PO DAILY Patient Comments: needs prescription clonazepam 1 mg tablet 1 mg PO TID Patient Comments: TAKE 1 TABLET BY MOUTH THREE TIMES DAILY methylphenidate HCl 54 mg tablet extended release 24hr 54 mg PO BID Patient Comments: TAKE 1 TABLET BY MOUTH TWICE DAILY. lisinopril 10 mg tablet 10 mg PO DAILY Patient Comments: take 1/2 tablet by mouth daily for 2 days then take 1 tablet by mouth daily multivitamin with folic acid [Daily-Nehemiah (with folic acid)] 400 mcg tablet 1 tab PO DAILY Patient Comments: take 1 tablet by mouth daily with food nicotine (polacrilex) 4 mg gum 4 mg PO Q2H PRN Patient Comments: CHEW 1 PIECE OF GUM EVERY 2 HOURS BY MOUTH FOR SMOKING CESSATION naproxen sodium 550 mg tablet 550 mg PO BID Patient Comments: take 1 tablet by mouth twice a day diphenhydramine HCl [Nyatd-U-Skpi] 25 mg tablet 25 mg PO BID PRN Rx Instructions: PRN anxiety. haloperidol 5 mg tablet 5 mg PO BID PRN Patient Comments: take 1 tablet by mouth UPTO twice a day if needed for AGITATION Rx Instructions: PRN agitation. gabapentin 400 mg capsule 1,200 mg PO TID Patient Comments: take 3 capsule by mouth three times a day
--- NOTE | 2024-06-03 07:18 | ED.PROG_ITS ---
Date of service: 06/03/24 Time of Service: 07:18 Medical Decision Making I received signout on this 48-year-old male in the department voluntarily pending placement for medication adjustment. He is on clonazepam gabapentin methadone and methylphenidate. No active behavioral issues last shift. Will update documentation as clinically warranted and signed patient out to the oncoming evening provider. 1:42 PM Patient was concerned that he has a broken needle in his right shoulder from an IO that was placed several years ago. Patient notes that he has had worsening right shoulder pain for the past week. He denies any new falls. He is right- hand dominant and can touch his right hand to his contralateral left shoulder. He has preserved range of motion in his right upper extremity and he can abduct to approximately 100 degrees flex to approximately 100 degrees and extend approximately 10 degrees. He can fully supinate and pronate. He has had no limitations in his right hand movement. Will obtain plain films of right shoulder. No erythema to suggest cellulitis. No fluctuance to suggest abscess. No signs of any obvious deformity to suggest dislocation. 2:45 PM On x-ray patient did have a linear approximate 7 mm foreign body in the soft tissues lateral to the proximal metaphysis of the right humerus. This certainly could be from retained needle as he has history of polysubstance abuse. I was also possible pulled the however less likely. No systemic symptoms fevers chills. No skin changes to suggest cellulitis. Will touch base with orthopedics. 4:20 PM I was in touch with Dr. Blackmon. He reviewed the patient's images and agreed that in the absence of any streaking signs of infection with systemic symptoms of fevers or chills or any signs of absence of skin that a period of expectant outpatient management with continued observation was warranted. I went down to update the patient however he was asleep but I felt that his rest was more important. Will sign patient out to Dr. Jane. Quality:SDOH Health Related Social Needs: Health related social needs material hardship(utilitie s) (Z59.12), problems related to housing/economic circumstances (Z59.89), problems finding work (Z56.9), problems with daily activities (Z73.9), feeling lonely/isolated (Z60.8) Discharge Plan Discharge Details Chief Complaint: PsychEval Clinical Impression: Polypharmacy Primary Care Provider: Unknown,Unknown ED Provider: Anmol Rendon Home Meds and New Rx's Prescriptions: No Action methadone 10 MG/ML concentrate 255 mg PO DAILY Patient Comments: Pt states he takes 190 mg daily 02/19/24 sertraline 100 MG tablet 200 mg PO DAILY Patient Comments: needs prescription clonazepam 1 mg tablet 1 mg PO TID Patient Comments: TAKE 1 TABLET BY MOUTH THREE TIMES DAILY methylphenidate HCl 54 mg tablet extended release 24hr 54 mg PO BID Patient Comments: TAKE 1 TABLET BY MOUTH TWICE DAILY. lisinopril 10 mg tablet 10 mg PO DAILY Patient Comments: take 1/2 tablet by mouth daily for 2 days then take 1 tablet by mouth daily multivitamin with folic acid [Daily-Nehemiah (with folic acid)] 400 mcg tablet 1 tab PO DAILY Patient Comments: take 1 tablet by mouth daily with food nicotine (polacrilex) 4 mg gum 4 mg PO Q2H PRN Patient Comments: CHEW 1 PIECE OF GUM EVERY 2 HOURS BY MOUTH FOR SMOKING CESSATION naproxen sodium 550 mg tablet 550 mg PO BID Patient Comments: take 1 tablet by mouth twice a day diphenhydramine HCl [Rmvnl-V-Zdsr] 25 mg tablet 25 mg PO BID PRN Rx Instructions: PRN anxiety. haloperidol 5 mg tablet 5 mg PO BID PRN Patient Comments: take 1 tablet by mouth UPTO twice a day if needed for AGITATION Rx Instructions: PRN agitation. gabapentin 400 mg capsule 1,200 mg PO TID Patient Comments: take 3 capsule by mouth three times a day
[2024-06-03] MEDS: Methadone Liquid 10 MG/ML 255 MG PO (07:51)
[2024-06-03] MEDS: Multivitamin w/Minerals TAB 1 TAB PO (07:51)
[2024-06-03] MEDS: clonazePAM 0.5 MG TAB PO (07:52)
[2024-06-03] MEDS: clonazePAM 1 MG TAB PO ×2 (07:52→19:01)
[2024-06-03] MEDS: Lisinopril 10 MG TAB PO (07:52)
[2024-06-03] MEDS: Gabapentin 300 MG CAP 1200 MG PO ×3 (07:52→19:01)
[2024-06-03 08:06] VITALS: BP 134/93; PULSE 77; RESP 18; TEMP 36.6; O2SAT 97
--- NOTE | 2024-06-03 11:04 | CMSP_ITS ---
Date of service: 06/03/24 Time of Service: 11:04 Care Management Safety Plan Status Status: Voluntary Reason for Wait Reason for Wait: Inpatient Admission Safety Plan Safety Plan: VOLUNTARY FOR INPATIENT PSYCHIATRIC STABILIZATION.? Patient is appropriate in all interactions since arriving at [facility]; Pt has demonstrated appropriate coping and communication skills, has articulated his or her needs and concerns and is fully engaged during staff interactions. Safety plan has been established with patient, and care team, to adhere to patient goals, identify restrictions based on behavioral status, address nutrition, and determine allowed personal belongings, tools for hygiene and personal care. Determine level of activity including ambulation, level of supervision, visitors, and determine privileges based on behaviors and level of engagement by pt. VOLUNTARY SAFETY PLAN: 1. Will remain on suicide precautions, in paper clothes. May wear his ball cap. May wear his reading glasses. 2. Will remain in Zone B under direct supervision of one-on-one staff at all times provided by [employer]; MAZIN, [employer] knife operator. 3. May have paper cups, plates, finger foods as well as a cardboard spoon with which to eat meals. 4. Follow [facility] Management of the Admitted Behavioral Health Patient policy. 5. Shower available in Zone B without restriction. 6. Personal belongings-soft items permitted at RN discretion. 7. Visitors- at RN discretion. 8. Activities: soft cart items approved per RN discretion. 9.? Bathroom available in Zone B without restriction. 10. Phone: limited to [facility] cordless phone at RN discretion. Due to VOLUNTARY status, if patient wishes to leave [facility], staff will contact [facility] Crisis Screener ([phone]) and [employer] ([phone]) as soon as possible. In the event of elopement, notify [facility] Police ([phone]).
--- NOTE | 2024-06-03 11:04 | PDOC.CMPRO ---
Date of service: 06/03/24 Time of Service: 11:04 Care Management Progress Note Progress Note Text Progress Note Text: CM huddled with ED staff and [facility] regarding Dima's plan of care. Per RN, Dima has been perseverating over multiple topics this morning, including going to [facility] today. Per [facility], Dima stated that if he doesn't transfer to [facility] today, he may decide to leave. If he wants to leave, [facility] should be contacted again to complete a safety plan with Dima. Dima is voluntary, seeking inpatient psychiatric treatment for med management. Referrals have been sent; Safety plan in place. CM will continue to follow. Social Determinants of Health Screening Social Determinants of Health last assessed: 06/03/24 Will the Patient Participate in the Screening?: Yes Do you worry about having a steady place to live?: no Problems where you live: no known problems In the past 12 months, have you had to go without electric, gas, oil or water in your home?: yes Have you or anyone in your house had to go without enough food to eat?: no Has lack of transportation kept you from medical appointments or from doing things needed for daily living?: no Has anyone in your life made you feel unsafe or unsupported?: yes How hard is it for you to pay for the very basics like food, housing, medical care, and heating? Would you say it is:: Very hard Do you want help finding or keeping work or a job?: Yes, help finding work If for any reason you need help with day-to-day activities such as bathing, preparing meals, shopping, managing finances, etc., do you get the help you need?: I need a lot more help How often do you feel lonely or isolated from those around you?: Often Do you speak a language other than [place] at home?: No Does the patient want assistance with any of the above?: Yes Health Related Social Needs Health related social needs: material hardship(utilities) (Z59.12), problems related to housing/economic circumstances (Z59.89), problems finding work (Z56.9), problems with daily activities (Z73.9) and feeling lonely/isolated (Z60.8)
--- NOTE | 2024-06-03 14:15 | DI.RAD_ITS ---
Exam(s) XR SHOULDER RT COMPLETE 2+V EXAM: XR SHOULDER RT COMPLETE 2+V CLINICAL HISTORY: Right shoulder pain question retained foreign body. TECHNIQUE: 2D digital imaging was performed of the right shoulder. Five images were obtained. AP, Grashey, Y-view and axillary views were obtained. COMPARISON: No exams were available for comparison FINDINGS: BONES: No acute fracture is present. No bony destructive lesion is seen. JOINTS: No dislocation present. SOFT TISSUE: There is a linear 7 mm foreign body in the soft tissues lateral to the proximal metaphys is of the right humerus. This is best appreciated on the AP and Grashey images. It can also be seen on the axillary view 9 the cortex of the proximal humerus. IMPRESSION: 7 mm linear foreign body in the soft tissues lateral to the proximal metaphysis of the right humerus. DATA REPOSITORY: RADIATION DOSE DELIVERED:
--- NOTE | 2024-06-03 17:03 | W.EDPROG ---
Date of service: 06/03/24 Time of Service: 17:00 Medical Decision Making In brief, this is a 48-year-old male patient with history of polysubstance use disorder, hepatitis C, and ADD who is presenting for medication management. The patient is voluntary, and prior to my taking over their care, the patient was medically cleared, and has been resting comfortably. They have met with the high school social studies tutor and we are awaiting final dispo. They have not required any additional medications for restraint or sedation. He did have an x-ray performed of his right shoulder given a concern for an indwelling/retained IO needle. He does have evidence of a metallic fragment in the soft tissue of the upper extremity, with no associated external skin changes concerning for cellulitis. Orthopedics was consulted by the prior provider who reviewed the images and did not have any recommendations for acute management. I did provide the patient with as needed Tylenol and ibuprofen for symptoms of pain. The patient was signed out to the oncoming provider prior to final disposition. Remained hemodynamically appropriate, calm, cooperative, and comfortable while under my care. Bisi Jane MD Medical Records Medical records reviewed: Yes I reviewed the patient's medical records. Lab Data Lab results reviewed: Yes I reviewed the patient's lab results. Quality:SDOH Health Related Social Needs: Health related social needs material hardship(utilities) (Z59.12), problems related to housing/economic circumstances (Z59.89), problems finding work (Z56.9), problems with daily activities (Z73.9), feeling lonely/isolated (Z60.8) Discharge Plan Discharge Details Chief Complaint: PsychEval Clinical Impression: Polypharmacy Primary Care Provider: Unknown,Unknown ED Provider: Bisi Jane Home Meds and New Rx's Prescriptions: No Action methadone 10 MG/ML concentrate 255 mg PO DAILY Patient Comments: Pt states he takes 190 mg daily 02/19/24 sertraline 100 MG tablet 200 mg PO DAILY Patient Comments: needs prescription clonazepam 1 mg tablet 1 mg PO TID Patient Comments: TAKE 1 TABLET BY MOUTH THREE TIMES DAILY methylphenidate HCl 54 mg tablet extended release 24hr 54 mg PO BID Patient Comments: TAKE 1 TABLET BY MOUTH TWICE DAILY. lisinopril 10 mg tablet 10 mg PO DAILY Patient Comments: take 1/2 tablet by mouth daily for 2 days then take 1 tablet by mouth daily multivitamin with folic acid [Daily-Nehemiah (with folic acid)] 400 mcg tablet 1 tab PO DAILY Patient Comments: take 1 tablet by mouth daily with food nicotine (polacrilex) 4 mg gum 4 mg PO Q2H PRN Patient Comments: CHEW 1 PIECE OF GUM EVERY 2 HOURS BY MOUTH FOR SMOKING CESSATION naproxen sodium 550 mg tablet 550 mg PO BID Patient Comments: take 1 tablet by mouth twice a day diphenhydramine HCl [Jewpz-R-Mqay] 25 mg tablet 25 mg PO BID PRN Rx Instructions: PRN anxiety. haloperidol 5 mg tablet 5 mg PO BID PRN Patient Comments: take 1 tablet by mouth UPTO twice a day if needed for AGITATION Rx Instructions: PRN agitation. gabapentin 400 mg capsule 1,200 mg PO TID Patient Comments: take 3 capsule by mouth three times a day
--- NOTE | 2024-06-03 19:57 | MHPN_ITS ---
Date of service: 06/03/24 Time of Service: 19:10 Mental Health Emergency Note Release [facility] release signed:: No Reason for Visit In the last 2 weeks has the pt presented for ES prior to today?: Unknown Additional Issues: Assaultive/Threatening Behavior: No Medical Concerns: No Client engaged in active self harm w/weapon: No Threatening to run away: Yes Child reported abuse/neglect: No Voluntarily presenting for services: Yes Domestic violence is a concern: No Extreme Psychosis or extreme behavior is present: No Plan/Disposition Recommended Disposition: Hospitalization facilities contacted. Reports/communication Outcome discussed with: ED/Personnel (Client/Patient contacted [facility] at 6:51p wants to know what's going on or he's leaving AMA. [facility] should be contacted at [phone] if client attempts to leave prior to transport for inpatient treatment. Client will need assessment from [facility] prior to discharge.)
[2024-06-03] MEDS: ALPRAZolam 0.25 MG TAB 0.5 MG PO (20:21)
[2024-06-04] MEDS: Nicotine 4 MG GUM CH ×10 (01:54→20:17)
--- NOTE | 2024-06-04 04:11 | ED.GENADUL_ITS ---
Discharge Plan Disposition Patient Disposition: Home Discharge Details Clinical Impression: Polypharmacy Primary Care Provider: Unknown,Unknown ED Provider: Lyn Betancourt Home Meds and New Rx's Prescriptions: Continued methadone 10 MG/ML concentrate 255 mg PO DAILY Patient Comments: Pt states he takes 190 mg daily 02/19/24 sertraline 100 MG tablet 200 mg PO DAILY Patient Comments: needs prescription clonazepam 1 mg tablet 1 mg PO TID Patient Comments: TAKE 1 TABLET BY MOUTH THREE TIMES DAILY methylphenidate HCl 54 mg tablet extended release 24hr 54 mg PO BID Patient Comments: TAKE 1 TABLET BY MOUTH TWICE DAILY. lisinopril 10 mg tablet 10 mg PO DAILY Patient Comments: take 1/2 tablet by mouth daily for 2 days then take 1 tablet by mouth daily multivitamin with folic acid [Daily-Nehemiah (with folic acid)] 400 mcg tablet 1 tab PO DAILY Patient Comments: take 1 tablet by mouth daily with food nicotine (polacrilex) 4 mg gum 4 mg PO Q2H PRN Patient Comments: CHEW 1 PIECE OF GUM EVERY 2 HOURS BY MOUTH FOR SMOKING CESSATION naproxen sodium 550 mg tablet 550 mg PO BID Patient Comments: take 1 tablet by mouth twice a day diphenhydramine HCl [[id number]] 25 mg tablet 25 mg PO BID PRN Rx Instructions: PRN anxiety. haloperidol 5 mg tablet 5 mg PO BID PRN Patient Comments: take 1 tablet by mouth UPTO twice a day if needed for AGITATION Rx Instructions: PRN agitation. gabapentin 400 mg capsule 1,200 mg PO TID Patient Comments: take 3 capsule by mouth three times a day Discharge Instructions Additional Instructions: You were seen in the emergency department for your mental health concerns. You were evaluated by [facility] services. You are offered a bed at the [facility] which you declined. If you do not feel safe with this plan or if you have any other concerns please return to the emergency department. HPI <Anmol Rendon MD - Last Filed: 06/04/24 16:39> General Date/Time Provider Initiated Documentation: 05/31/24 11:42 . HPI Narrative: This patient had been compromised shift. He had been waiting for [facility]. He requested discharge and elected to go to [facility]. He met with the patient. He is not suicidal or homicidal. Will update [facility] human services on patient's disposition. 4:40 PM Patient was initially going to go to [facility] however this was reportedly going to take some time. He was initially guarded discharged but he elected to wait in the emergency department. He requested something for anxiety and I gave him 2 mg of diazepam. Related Data Home Medications ?Medication ?Instructions ?Recorded ?Confirmed methadone 10 mg/mL oral concentrate 255 mg PO DAILY 11/11/14 05/31/24 sertraline 100 mg tablet 200 mg PO DAILY 07/18/16 03/02/24 clonazepam 1 mg tablet 1 mg PO TID 03/02/24 05/31/24 methylphenidate HCl 54 mg 54 mg PO BID 03/02/24 05/31/24 tablet,extended release 24 hr lisinopril 10 mg tablet 10 mg PO DAILY 04/26/24 05/31/24 multivitamin with folic acid 400 1 tab PO DAILY 04/26/24 05/31/24 mcg tablet (Daily-Nehemiah (with folic acid)) nicotine (polacrilex) 4 mg gum 4 mg PO Q2H PRN 04/26/24 05/31/24 diphenhydramine HCl 25 mg tablet 25 mg PO BID PRN 05/31/24 05/31/24 (Oooun-O-Kwjm) gabapentin 400 mg capsule 1,200 mg PO TID 05/31/24 05/31/24 haloperidol 5 mg tablet 5 mg PO BID PRN 05/31/24 05/31/24 naproxen sodium 550 mg tablet 550 mg PO BID 05/31/24 05/31/24 Allergies Allergy/AdvReac Type Severity Reaction Status Date / Time No Known Allergies Allergy Unverified 05/31/24 12:40 <Aroldo Roblero DO - Last Filed: > General Limitations to Documentation: no limitations . Information obtained by: patient . Stated Complaint: PsychEval SHAUNA: 2 Course <Aroldo Roblero DO - Last Filed: > Vital Signs Vital signs: Vital Signs Temperature 37.1 C 05/31/24 11:45 Pulse 90 05/31/24 11:45 Respiratory Rate 16 05/31/24 11:45 Blood Pressure 130/86 05/31/24 11:45 Pulse Oximetry 98 05/31/24 11:45 Temperature 36.6 C 06/03/24 08:06 Temperature Source Tympanic 06/03/24 08:06 Pulse 77 06/03/24 08:06 Respiratory Rate 18 06/03/24 08:06 Blood Pressure 134/93 H 06/03/24 08:06 Blood Pressure Position Sitting 05/31/24 11:45 Pulse Oximetry 97 06/03/24 08:06 Oxygen Delivery Method Room Air 06/03/24 08:06 Oxygen Flow Rate 0 06/03/24 08:06 Pain Level 0 05/31/24 11:45 Lab/Test Results Lab/Test Results: Laboratory Tests Range/Units 05/31/24 05/31/24 11:45 14:14 WBC (4.4-10.8) 10^3/uL 6.41 RBC (4.36-5.78) 10^6/uL 4.19 L Hgb (13.5-17.5) g/dL 12.3 L Hct (40.0-50.0) % 37.9 L MCV (80-95) fL 91 MCH (27.0-33.0) pg 29.4 MCHC (32.0-36.0) % 32.5 RDW (11.8-14.1) % 13.9 Plt Count (130-400) 10^3/uL 200 MPV (8.0-11.0) fL 9.2 Immature Gran % % 0.2 Neutrophils % % 56.5 Lymphocytes % % 25.4 Monocytes % % 11.2 Eosinophils % % 6.1 Basophils % % 0.6 Nucleated RBC % (0.0-0.3) % 0.0 Absolute Neutrophils (1.2-6.7) 10^3/uL 3.62 Absolute Lymphocytes (1.2-3.4) 10^3/uL 1.63 Absolute Monocytes (0.1-0.8) 10^3/uL 0.72 Absolute Eosinophils (0.0-0.7) 10^3/uL 0.39 Absolute Basophils (0.0-0.2) 10^3/uL 0.04 Sodium (136-145) mmol/L 143 Potassium (3.5-5.1) mmol/L 4.3 Chloride (98-107) mmol/L 107 Carbon Dioxide (21.0-32.0) mmol/L 29.6 Anion Gap (3-11) mmol/L 6.4 BUN (7-18) mg/dL 30 H Creatinine (0.70-1.30) mg/dL 0.8 Est GFR (CKD-EPI 2020) (mL/min/1.73m2) 108.49 Glucose (74-106) mg/dL 72 L Calcium (8.5-10.1) mg/dL 8.9 Total Bilirubin (0.2-1.0) mg/dL 0.3 AST (15-37) U/L 36 ALT (16-63) U/L 66 H Alkaline Phosphatase (46-116) U/L 95 Total Protein (6.4-8.2) g/dL 7.7 Albumin (3.4-5.0) g/dL 3.7 Urine Opiates Screen (Negative) Negative Urine Methadone Screen (Negative) Positive A Ur Barbiturates Screen (Negative) Negative Ur Tricyclics Screen (Negative) Negative Ur Amphetamines Screen (Negative) Negative U Benzodiazepines Scrn (Negative) Negative Urine Cocaine Screen (Negative) Negative Ur THC Screen (Negative) Negative Ethyl Alcohol (<10) mg/dL < 3.0 Medical Decision Making <Anmol Rendon MD - Last Filed: 06/04/24 16:39> Quality:SDOH Health Related Social Needs: Health related social needs material hardship(utilitie s) (Z59.12), problems related to housing/economic circumstances (Z59.89), problems finding work (Z56.9), problems with daily activities (Z73.9), feeling lonely/isolated (Z60.8) PFS <Anmol Rendon MD - Last Filed: 06/04/24 16:39> All Active Problems (Updated 05/31/24 @ 14:25 by Lyn Betancourt MD) Polypharmacy (Acute) Smoker (Chronic) Restless leg syndrome (Chronic) Urinary retention (Chronic) ADD (attention deficit disorder) (Chronic) Hepatitis C (Chronic) Polydrug abuse, continuous (Acute 07/22/14) Family History Mother Essential hypertension Father No problems noted. Brother Diabetes Essential hypertension Social History Smoking/Tobacco Use Status: Current every day Smoking risk assessment performed?: Yes Alcohol Intake: never Drug use: Daily Substance use type: sedatives and IV drugs Details: current use Housing: apartment Do you feel safe at home: Yes Do you feel safe in your relationship?: Yes
[2024-06-04] MEDS: LORazepam 1 MG TAB PO (04:12)
[2024-06-04] MEDS: clonazePAM 0.5 MG TAB PO (07:43)
[2024-06-04] MEDS: clonazePAM 1 MG TAB PO ×2 (07:44→20:11)
[2024-06-04] MEDS: Gabapentin 300 MG CAP 1200 MG PO ×3 (07:44→20:11)
[2024-06-04] MEDS: Lisinopril 10 MG TAB PO (07:44)
[2024-06-04 07:53] VITALS: BP 143/91; PULSE 78; O2SAT 99
[2024-06-04] MEDS: Methadone Liquid 10 MG/ML 255 MG PO (08:06)
--- NOTE | 2024-06-04 13:11 | MHPN_ITS ---
Date of service: 06/03/24 Time of Service: 11:00 PHQ-9 Over the last 2 weeks, how often have you been bothered by any of the following problems? 1. Little interest or pleasure in doing things: not at all 2. Feeling down, depressed, or hopeless: several days 3. Trouble falling or staying asleep, or sleeping too much: several days 4. Feeling tired or having little energy: not at all 5. Poor appetite or overeating: several days 6. Feeling bad about yourself - or that you are a failure or have let yourself and your family down: not at all 7. Trouble concentrating on things, such as reading the newspaper or watching television: not at all 8. Moving or speaking so slowly that other people could have noticed? - Or the opposite - being so fidgety or restless that you have been moving around a lot more than usual: not at all 9. Thoughts that you would be better off or of hurting yourself in some way: not at all Total score: 3 If you checked off any problems, how difficult have these problems made it for you to do your work, take care of things at home, or get along with other people?: somewhat difficult Source: Developed by Drs. Walker Mauro, Griselda Lee, Osbaldo Tomlin and colleagues, with an educational shelby from [employer]. Suicide Severity Rate CSSRS2 Have you been thinking about how you might do this?: No Have you had these thoughts and had some intention of acting on them?: No Have you started to work out or worked out the details of how to kill yourself? Do you intend to carry out this plan?: No CSSRS3 Have you ever done anything, started to do anything or prepared to do anything to end your life?: Yes CSSRS4 Was this within the past three months?: No Screening Score Total Score: 2 Screening: Positive Mental Health Emergency Note Release [facility] release signed:: Yes Reason for Visit medical issues with shoulder, active in drug rehab but desiring to go inpatient for mentl health and substance use In the last 2 weeks has the pt presented for ES prior to today?: No Client Information Client is: Adult Outpatient Well Housed: No,status: Homeless Unstable housing Non Suicidal Self Injury Current: No History: No Safety Risk/Harm to Self or Others Current Ideation to Harm Self or Others: No Risk: Does risk to harm exist?: No Risk: Low Risk Duty to warn indicated: No Asssessment/Mental Status Appearance: Other Attitude: Cooperative, Demanding and Guarded Behavior: Agitated Speech: Normal Affect: Cogruent with mood Mood: Elevated, Stressed and Anxious Thought process: Flight of ideas and Goal directed Hallucinations: No Delusions: No Attention: Unremarkable Perception: Not impaired Orientation: Fully orientated Memory: Intact Insight: Fair Judgement: Fair Neurovegetative Symptoms Sleep: Increase Appetitie: Increase Interests: No change Energy: No change Libido: Not applicable Substance Use: Other (none) Drug Issues: Other (uses methadone to sheppard off illicit drug use but still slips up ocassionally) Do you use nicotine?: No Have you used substances in the last 7 days?: yes, daily Additional Issues: Assaultive/Threatening Behavior: No Medical Concerns: No Client engaged in active self harm w/weapon: No Threatening to run away: No Child reported abuse/neglect: No Voluntarily presenting for services: Yes Domestic violence is a concern: No Extreme Psychosis or extreme behavior is present: No Impression Patient definitely likes to control his medications and is fearful if a docotr changes any of them. He is waiting patiently waiting to go inaptient while maintaining his current medication dose Resources Reosurces reviewed and given:: 988, Crisis Bed and [facility] Plan/Disposition Recommended Disposition: Hospitalization facilities contacted, Psych Screening and Med management. Person reported agreement to plan: Yes Reports/communication Outcome discussed with: ED/Personnel
--- NOTE | 2024-06-04 13:36 | PDOC.MHPN2 ---
Date of service: 06/04/24 Time of Service: 10:00 Mental Health Emergency Note Release [facility] release signed:: Yes Reason for Visit Client is in need of med change and needs inpatient treatment for his mental health. In the last 2 weeks has the pt presented for ES prior to today?: No Client Information Client is: Substance use Well Housed: No,status: Homeless Non Suicidal Self Injury Current: Yes, Client is not currently SI History: yes, N/A Safety Risk/Harm to Self or Others Current Ideation to Harm Self or Others: No Risk: Does risk to harm exist?: yes. Risk: Moderate Risk Duty to warn indicated: No Asssessment/Mental Status Appearance: Unremarkable Attitude: Cooperative and Friendly Behavior: Unremarkable Speech: Normal Affect: Normal Mood: Stressed and Anxious Thought process: Unremarkable Hallucinations: No Delusions: No Attention: Unremarkable Perception: Not impaired Orientation: Fully orientated Memory: Intact Insight: Poor Judgement: Poor Neurovegetative Symptoms Sleep: Increase Appetitie: Increase Interests: No change Energy: No change Substance Use: Other Drug Issues: Dependence Do you use nicotine?: Yes Have you used substances in the last 7 days?: yes, N/A Additional Issues: Assaultive/Threatening Behavior: No Medical Concerns: Yes Client engaged in active self harm w/weapon: No Threatening to run away: No Child reported abuse/neglect: No Voluntarily presenting for services: Yes Domestic violence is a concern: No Extreme Psychosis or extreme behavior is present: No Impression Client is a 48 year old male in distress at the [facility]. Client addresses himself as He/Him and was respected as so. Warehouse Operator completed as many of the screening tools as possible in clients state of mind. Client was recently released from [facility] with new medication and felt it was changing him as a person and was concerned. Client is presenting to this development writer calm cool and collected. Client is holding eye contact and conversation answering all questions asked. Client stated that he was sleeping(was given evening meds)and feeling better in general. Client stated that he is taking his medication as prescribed, but wanted to make sure that development writer knew that his Conserta can't be touched because it's the perfect dose for him. Client is staying busy with art and watching TV, but wondering when he is going to go back to [facility]. Warehouse Operator shared that she would talk with his provider and that he is doing a great job waiting and taking his medication as prescribed. Client shared that he was planning on going to [facility], then [facility] and [facility]. Client explained with great insight that he didn't want to be a burden to his son and he needs to turn his life around. Client is still waiting in Zone B for inpatient availability. Resources Reosurces reviewed and given:: [facility] Plan/Disposition Recommended Disposition: Hospitalization facilities contacted. Plan: Client is seeking inpatient treatment to adjust his medication. Person reported agreement to plan: Yes Facilities contacted if Applicable [facility] Not accepted, Other [facility] Not accepted, Other [facility] Not accepted, Other, [facility] Not accepted, Other [facility] Not accepted, Other Reports/communication Outcome discussed with: ED/Personnel
[2024-06-04] MEDS: diazePAM 2 MG TAB PO (16:44)
--- NOTE | 2024-06-04 17:00 | CMSP_ITS ---
Date of service: 06/04/24 Time of Service: 17:01 Care Management Safety Plan Status Status: Voluntary Reason for Wait Reason for Wait: Inpatient Admission Safety Plan Safety Plan: VOLUNTARY FOR INPATIENT PSYCHIATRIC STABILIZATION.? Patient is appropriate in all interactions since arriving at [facility]; Pt has demonstrated appropriate coping and communication skills, has articulated his or her needs and concerns and is fully engaged during staff interactions. Safety plan has been established with patient, and care team, to adhere to patient goals, identify restrictions based on behavioral status, address nutrition, and determine allowed personal belongings, tools for hygiene and personal care. Determine level of activity including ambulation, level of supervision, visitors, and determine privileges based on behaviors and level of engagement by pt. VOLUNTARY SAFETY PLAN: 1. Will remain on suicide precautions, in paper clothes. May wear his ball cap. May wear his reading glasses. 2. Will remain in Zone B under direct supervision of one-on-one staff at all times provided by [employer]; MAZIN, NOVELTY BALLOON ASSEMBLER AND PACKER cork slabs sawyer. 3. May have paper cups, plates, finger foods as well as a cardboard spoon with which to eat meals. 4. Follow [facility] Management of the Admitted Behavioral Health Patient policy. 5. Shower available in Zone B without restriction. 6. Personal belongings-soft items permitted at RN discretion. 7. Visitors- at RN discretion. 8. Activities: soft cart items approved per RN discretion. 9.? Bathroom available in Zone B without restriction. 10. Phone: limited to [facility] cordless phone at RN discretion. Due to VOLUNTARY status, if patient wishes to leave [facility], staff will contact [facility] Crisis Screener ([phone]) and Statistical Methods Teacher ([phone]) as soon as possible. In the event of elopement, notify [facility] Police ([phone]).
--- NOTE | 2024-06-04 17:01 | CMPROGNOTE_ITS ---
Date of service: 06/04/24 Time of Service: 17:01 Care Management Progress Note Progress Note Text Progress Note Text: CM met with staff regarding Dima's plan of care. Per report, he is denying SI/HI, but continues to meet criteria for inpatient hospitalization for med management. He has made a plan to step down from psychiatric care to substance use treatment. This afternoon, he contacted [facility], who agreed to consider him for admission. As he has been denying SI/HI, NK and agreed to discharge him for substance use treatment. Unfortunately, after reviewing his referral, he was declined by [facility]. He will remain at [facility], as he continues to seek voluntary inpatient psychiatric care. Referrals are pending; no bed availability today. Safety plan in place. CM will continue to follow. Social Determinants of Health Screening Social Determinants of Health last assessed: 06/04/24 Will the Patient Participate in the Screening?: Yes Do you worry about having a steady place to live?: no Problems where you live: no known problems In the past 12 months, have you had to go without electric, gas, oil or water in your home?: yes Have you or anyone in your house had to go without enough food to eat?: no Has lack of transportation kept you from medical appointments or from doing things needed for daily living?: no Has anyone in your life made you feel unsafe or unsupported?: yes How hard is it for you to pay for the very basics like food, housing, medical care, and heating? Would you say it is:: Very hard Do you want help finding or keeping work or a job?: Yes, help finding work If for any reason you need help with day-to-day activities such as bathing, preparing meals, shopping, managing finances, etc., do you get the help you need?: I need a lot more help How often do you feel lonely or isolated from those around you?: Often Do you speak a language other than [place] at home?: No Does the patient want assistance with any of the above?: Yes Health Related Social Needs Health related social needs: material hardship(utilities) (Z59.12), problems related to housing/economic circumstances (Z59.89), problems finding work (Z56.9), problems with daily activities (Z73.9) and feeling lonely/isolated (Z60.8)
--- NOTE | 2024-06-04 21:20 | W.EDPROG ---
Date of service: 06/04/24 Time of Service: 21:20 Medical Decision Making Care assumed from outgoing provider. Patient is currently pending inpatient psychiatric placement voluntarily for medication management. No issues during my shift. Quality:SDOH Health Related Social Needs: Health related social needs material hardship(utilities) (Z59.12), problems related to housing/economic circumstances (Z59.89), problems finding work (Z56.9), problems with daily activities (Z73.9), feeling lonely/isolated (Z60.8) Discharge Plan Disposition Patient Disposition: Home Discharge Details Clinical Impression: Polypharmacy Primary Care Provider: Unknown,Unknown ED Provider: Lyn Betancourt Home Meds and New Rx's Prescriptions: Continued methadone 10 MG/ML concentrate 255 mg PO DAILY Patient Comments: Pt states he takes 190 mg daily 02/19/24 sertraline 100 MG tablet 200 mg PO DAILY Patient Comments: needs prescription clonazepam 1 mg tablet 1 mg PO TID Patient Comments: TAKE 1 TABLET BY MOUTH THREE TIMES DAILY methylphenidate HCl 54 mg tablet extended release 24hr 54 mg PO BID Patient Comments: TAKE 1 TABLET BY MOUTH TWICE DAILY. lisinopril 10 mg tablet 10 mg PO DAILY Patient Comments: take 1/2 tablet by mouth daily for 2 days then take 1 tablet by mouth daily multivitamin with folic acid [Daily-Nehemiah (with folic acid)] 400 mcg tablet 1 tab PO DAILY Patient Comments: take 1 tablet by mouth daily with food nicotine (polacrilex) 4 mg gum 4 mg PO Q2H PRN Patient Comments: CHEW 1 PIECE OF GUM EVERY 2 HOURS BY MOUTH FOR SMOKING CESSATION naproxen sodium 550 mg tablet 550 mg PO BID Patient Comments: take 1 tablet by mouth twice a day diphenhydramine HCl [[id number]] 25 mg tablet 25 mg PO BID PRN Rx Instructions: PRN anxiety. haloperidol 5 mg tablet 5 mg PO BID PRN Patient Comments: take 1 tablet by mouth UPTO twice a day if needed for AGITATION Rx Instructions: PRN agitation. gabapentin 400 mg capsule 1,200 mg PO TID Patient Comments: take 3 capsule by mouth three times a day Discharge Instructions Additional Instructions: You were seen in the emergency department for your mental health concerns. You were evaluated by [facility] human services. You are offered a bed at the [facility] which you declined. If you do not feel safe with this plan or if you have any other concerns please return to the emergency department.
--- NOTE | 2024-06-04 23:31 | ED.PROG_ITS ---
Date of service: 06/04/24 Time of Service: 23:31 Medical Decision Making This patient was signed out to me. Please see previous notes for H&P and initial eval. In brief, 48yo M pending voluntary inpatient psychiatric placement for medication management. Overnight no acute events. Did not wake patient for assessment. Will be signed out to oncoming physician; plan remains as above. Quality:SDOH Health Related Social Needs: Health related social needs material hardship(utilitie s) (Z59.12), problems related to housing/economic circumstances (Z59.89), problems finding work (Z56.9), problems with daily activities (Z73.9), feeling lonely/isolated (Z60.8) Discharge Plan Disposition Patient Disposition: Home Discharge Details Clinical Impression: Polypharmacy Primary Care Provider: Unknown,Unknown ED Provider: Kelley Brasher Home Meds and New Rx's Prescriptions: Continued methadone 10 MG/ML concentrate 255 mg PO DAILY Patient Comments: Pt states he takes 190 mg daily 02/19/24 sertraline 100 MG tablet 200 mg PO DAILY Patient Comments: needs prescription clonazepam 1 mg tablet 1 mg PO TID Patient Comments: TAKE 1 TABLET BY MOUTH THREE TIMES DAILY methylphenidate HCl 54 mg tablet extended release 24hr 54 mg PO BID Patient Comments: TAKE 1 TABLET BY MOUTH TWICE DAILY. lisinopril 10 mg tablet 10 mg PO DAILY Patient Comments: take 1/2 tablet by mouth daily for 2 days then take 1 tablet by mouth daily multivitamin with folic acid [Daily-Nehemiah (with folic acid)] 400 mcg tablet 1 tab PO DAILY Patient Comments: take 1 tablet by mouth daily with food nicotine (polacrilex) 4 mg gum 4 mg PO Q2H PRN Patient Comments: CHEW 1 PIECE OF GUM EVERY 2 HOURS BY MOUTH FOR SMOKING CESSATION naproxen sodium 550 mg tablet 550 mg PO BID Patient Comments: take 1 tablet by mouth twice a day diphenhydramine HCl [Uebxx-B-Afdv] 25 mg tablet 25 mg PO BID PRN Rx Instructions: PRN anxiety. haloperidol 5 mg tablet 5 mg PO BID PRN Patient Comments: take 1 tablet by mouth UPTO twice a day if needed for AGITATION Rx Instructions: PRN agitation. gabapentin 400 mg capsule 1,200 mg PO TID Patient Comments: take 3 capsule by mouth three times a day Discharge Instructions Additional Instructions: You were seen in the emergency department for your mental health concerns. You were evaluated by [facility] human services. You are offered a bed at the [facility] which you declined. If you do not feel safe with this plan or if you have any other concerns please return to the emergency department.
[2024-06-05] MEDS: Nicotine 4 MG GUM CH ×5 (05:51→15:02)
--- NOTE | 2024-06-05 07:06 | ED.PROG_ITS ---
Date of service: 06/05/24 Time of Service: 07:27 Medical Decision Making In brief, this is a 48-year-old male patient with a history of polysubstance use disorder and ADD who is boarding voluntarily in our emergency department awaiting placement for medication management. Prior to my taking over their care, the patient was medically cleared, and has been resting comfortably. They have met with the social services designee and we are awaiting final dispo. They have not required any additional medications for restraint or sedation. Unfortunately, the patient was declined from a number of mental health institutions due to the lack of acuity and the recommendation was made that he manage his medications in the outpatient environment with his primary care doctor. The patient completed a safety plan with [facility]. He has a primary care appointment scheduled for the , and I provided him with prescriptions for me dications to get him through to that appointment since his parent flushed all of his prescription medications. The patient remained hemodynamically appropriate, calm, cooperative, and comfortable while under my care, and left our facility without incident. Bisi Jane MD Medical Records Medical records reviewed: Yes I reviewed the patient's medical records. Lab Data Lab results reviewed: Yes I reviewed the patient's lab results. Quality:SDOH Health Related Social Needs: Health related social needs material hardship(utilitie s) (Z59.12), problems related to housing/economic circumstances (Z59.89), problems finding work (Z56.9), problems with daily activities (Z73.9), feeling lonely/isolated (Z60.8) Discharge Plan Disposition Patient Disposition: Home Condition: Stable Discharge Details Clinical Impression: Polypharmacy Primary Care Provider: Alonso Petty ED Provider: Bisi Jane Home Meds and New Rx's Prescriptions: New clonazepam 1 mg tablet 1 mg PO TID 5 Days Qty: 15 0RF methylphenidate HCl 54 mg tablet extended release 24hr 54 mg PO BID 5 Days Qty: 10 0RF Continued methadone 10 MG/ML concentrate 255 mg PO DAILY Patient Comments: Pt states he takes 190 mg daily 02/19/24 multivitamin with folic acid [Daily-Nehemiah (with folic acid)] 400 mcg tablet 1 tab PO DAILY Patient Comments: take 1 tablet by mouth daily with food nicotine (polacrilex) 4 mg gum 4 mg PO Q2H PRN Patient Comments: CHEW 1 PIECE OF GUM EVERY 2 HOURS BY MOUTH FOR SMOKING CESSATION diphenhydramine HCl [Uoeag-D-Yqyl] 25 mg tablet 25 mg PO BID PRN Rx Instructions: PRN anxiety. haloperidol 5 mg tablet 5 mg PO BID PRN5 Days Qty: 10 0RF Rx Instructions: PRN agitation. gabapentin 400 mg capsule 1,200 mg PO TID 5 Days Qty: 45 0RF sertraline 100 MG tablet 200 mg PO DAILY 5 Days Qty: 10 0RF clonazepam 1 mg tablet 1 mg PO TID 5 Days Qty: 15 0RF methylphenidate HCl 54 mg tablet extended release 24hr 54 mg PO BID 5 Days Qty: 10 0RF naproxen sodium 550 mg tablet 550 mg PO BID 5 Days Qty: 10 0RF lisinopril 10 mg tablet 10 mg PO DAILY 5 Days Qty: 5 0RF Discharge Instructions Instructions: Why Taking Your Medicine or Drug as Ordered Is Important Additional Instructions: You were seen in the emergency department for your mental health concerns. You were evaluated by [facility] human services. You have been safety planned and should keep to the safety plan as recommended, I did provide you with a short refill of your prescriptions to get you through to your primary care appointment, which will be with Alonso Flores on 06/11 at 1 PM. Thank you for allowing us to be part of your care.
[2024-06-05] MEDS: clonazePAM 0.5 MG TAB PO (07:29)
[2024-06-05] MEDS: Multivitamin w/Minerals TAB 1 TAB PO (07:29)
[2024-06-05] MEDS: Lisinopril 10 MG TAB PO ×2 (07:30→14:56)
[2024-06-05] MEDS: clonazePAM 1 MG TAB PO ×2 (07:30→14:57)
[2024-06-05] MEDS: Gabapentin 300 MG CAP 1200 MG PO (07:30)
[2024-06-05] MEDS: Methadone Liquid 10 MG/ML 255 MG PO (07:57)
--- NOTE | 2024-06-05 10:42 | NUR.NOTE ---
RN and tech received call from charge nurse with concern that pt had remote and tablet, which isn't specifically noted on safety plan. remote was removed from pts room. pt has remained totally appropriate this morning with staff. RN spoke with provider about pt having tablet, provider ok'd the tablet. pt is now laying in bed watching tablet calmly and appropriatly. Nursing Note:
[2024-06-05] MEDS: Gabapentin 600 MG TAB 1200 MG PO (14:07)
[2024-06-05] MEDS: Sertraline 100 MG TAB 200 MG PO (14:57)
[2024-06-05] MEDS: Gabapentin 600 MG TAB 2400 MG PO (14:57)
--- NOTE | 2024-06-05 15:47 | PDOC.MHPN2 ---
Date of service: 06/05/24 Time of Service: 10:27 PHQ-9 Over the last 2 weeks, how often have you been bothered by any of the following problems? 1. Little interest or pleasure in doing things: not at all 2. Feeling down, depressed, or hopeless: nearly every day 3. Trouble falling or staying asleep, or sleeping too much: more than half the days 4. Feeling tired or having little energy: not at all 5. Poor appetite or overeating: nearly every day 6. Feeling bad about yourself - or that you are a failure or have let yourself and your family down: nearly every day 7. Trouble concentrating on things, such as reading the newspaper or watching television: not at all 8. Moving or speaking so slowly that other people could have noticed? - Or the opposite - being so fidgety or restless that you have been moving around a lot more than usual: nearly every day 9. Thoughts that you would be better off or of hurting yourself in some way: more than half the days Total score: 16 If you checked off any problems, how difficult have these problems made it for you to do your work, take care of things at home, or get along with other people?: extremely difficult PHQ-9 Results: Positive Source: Developed by Drs. Walker Mauro, Griselda Lee, Osbaldo Tomlin and colleagues, with an educational shelby from [employer]. Suicide Severity Rate CSSRS Have you wished you were or wished you could go to sleep and not wake up?: Yes Have you actually had any thoughts of killing yourself?: Yes CSSRS2 Have you been thinking about how you might do this?: No Have you had these thoughts and had some intention of acting on them?: No Have you started to work out or worked out the details of how to kill yourself? Do you intend to carry out this plan?: No CSSRS3 Have you ever done anything, started to do anything or prepared to do anything to end your life?: Yes CSSRS4 Was this within the past three months?: No Screening Score Total Score: 6 Screening: Positive Mental Health Emergency Note Release [facility] release signed:: Yes Reason for Visit The client is a 48 year old single male who is currently unhoused. The client's main complaint is of medication management which is Doctor at [facility] feels is affecting his behavior after [facility] recently discharged him. The client states he slept well but that he was woken up by nightmares during the night. The client states that he is eating well. The client denies SI and HI. The client became escalated when informed that [facility] denied him due to feeling that he could manage his medications on a out patient basis. The client was reminded by both this clinician and MAZIN Osullivan that [facility] and [facility] were still reviewing his case. The client then outreached to [facility] and secured a room at the [facility] in [place] and asked to leave. The client engaged in a safety plan and agreed to a check in at [address] [place] [id number] in [place] on Monday at 3pm. In the last 2 weeks has the pt presented for ES prior to today?: No Client Information Client is: New Well Housed: No,status: Homeless Non Suicidal Self Injury Current: No History: yes, The client states previous NSSI including painful tattooing. Safety Risk/Harm to Self or Others Current Ideation to Harm Self or Others: No Risk: Does risk to harm exist?: yes. Risk: Low Risk Duty to warn indicated: No Asssessment/Mental Status Appearance: Unremarkable and Disheveled Attitude: Guarded and Friendly Behavior: Unremarkable Speech: Slow Affect: Expansive Mood: Stressed and Anxious Thought process: Tangential Hallucinations: No Delusions: No Attention: Wandering Perception: Not impaired Orientation: Fully orientated Memory: Intact Insight: Fair Judgement: Fair Neurovegetative Symptoms Sleep: Increase Appetitie: Increase Interests: No change Energy: No change Libido: Not applicable Substance Use: Do you use nicotine?: Yes Have you used substances in the last 7 days?: No Additional Issues: Assaultive/Threatening Behavior: No Medical Concerns: No Client engaged in active self harm w/weapon: No Threatening to run away: No Child reported abuse/neglect: No Voluntarily presenting for services: Yes Domestic violence is a concern: No Extreme Psychosis or extreme behavior is present: No Impression The client is a 48 year old single male who is currently unhoused. The client's main complaint is of medication management which is Doctor at [facility] feels is affecting his behavior after [facility] recently discharged him. The client states he slept well but that he was woken up by nightmares during the night. The client states that he is eating well. The client denies SI and HI. The client became escalated when informed that [facility] denied him due to feeling that he could manage his medications on a out patient basis. The client was reminded by both this clinician and MAZIN Osullivan that [facility] and [facility] were still reviewing his case. The client then outreached to [facility] and secured a room at the [facility] in [place] and asked to leave. The client engaged in a safety plan and agreed to a check in at [address] [place] [id number] in [place] on Monday at 3pm. Plan/Disposition Recommended Disposition: PCP/Office visit. Plan: The client safety planned and was discharged to the [facility] in [place] Reports/communication Outcome discussed with: ED/Personnel
--- NOTE | 2024-06-05 19:50 | CMPROGNOTE_ITS ---
Date of service: 06/05/24 Time of Service: 19:50 Care Management Progress Note Progress Note Text Progress Note Text: SHANE huddled with staff regarding Dima's plan of care. Dima was standing in the Zone B doorway when CM interacted with him today, discussing his PCP. He reported that he sees a new provider at [facility]. He expressed concern about the reason that CM was asking for his PCP, as he stated that he does not want the ED provider/his PCP to make changes to his medication regiment, specifically Concerta. CM assured him that changes would not be made without a discussion with him. CM also informed the ED provider of his concerns. Per RN, Dima has been appropriate and cooperative in all interactions today. He has been using the tablet to watch Netflix, which will be added to his safety plan. Per [facility], he was declined by [facility]; BR stated that he is looking for med management, which can be completed appropriately outpatient. Dima agreed to stay in order to find out if he would be accepted at [facility] or [facility]. Later, he decided that he would prefer to discharge with a plan for safety, and work with his PCP for med management. CM contacted his PCP office to determine his assigned PCP, which is Alonso Petty. He has a scheduled appointment on 06/11/24 at 1pm. He has a housing voucher through [employer], and was able to secure a room at the [facility] in [place]. He was transported via [facility]. His RN contacted CM about him obtaining his prescriptions, as he does not have an ID. CM asked how he normally obtains his medications, and he reported that he has had help from family to pick them up using their ID, which is appropriate. CM informed staff that he will need to ask for family/friend support for this. CM informed [facility] of his intention to discharge, and they arrived and completed a safety plan. He has follow up scheduled with [facility] on 06/07/24. Social Determinants of Health Screening Social Determinants of Health last assessed: 06/05/24 Will the Patient Participate in the Screening?: Yes Do you worry about having a steady place to live?: no Problems where you live: no known problems In the past 12 months, have you had to go without electric, gas, oil or water in your home?: yes Have you or anyone in your house had to go without enough food to eat?: no Has lack of transportation kept you from medical appointments or from doing things needed for daily living?: no Has anyone in your life made you feel unsafe or unsupported?: yes How hard is it for you to pay for the very basics like food, housing, medical care, and heating? Would you say it is:: Very hard Do you want help finding or keeping work or a job?: Yes, help finding work If for any reason you need help with day-to-day activities such as bathing, preparing meals, shopping, managing finances, etc., do you get the help you need?: I need a lot more help How often do you feel lonely or isolated from those around you?: Often Do you speak a language other than Ukrainian at home?: No Does the patient want assistance with any of the above?: Yes Health Related Social Needs Health related social needs: material hardship(utilities) (Z59.12), problems related to housing/economic circumstances (Z59.89), problems finding work (Z56.9), problems with daily activities (Z73.9) and feeling lonely/isolated (Z60.8)
--- NOTE | 2024-06-06 07:57 | NUR.NOTE ---
At the request of the provider from [facility] I faxed the provider discharge note and the discharge instructions for continuing care. Nursing Note:
== END 2024-06-05 15:05 | disposition home or self-care (01) ==
PROVIDERS: Emergency Medicine; Emergency Provider Emergency Medicine; PCP Family Medicine
DX: R41.82 Altered mental status, unspecified (principal); T42.4X5A Adverse effect of benzodiazepines, initial encounter; F11.20 Opioid dependence, uncomplicated; F17.200 Nicotine dependence, unspecified, uncomplicated; Z59.12 Inadequate housing utilities; Z59.89 Other problems related to housing and economic circumstances; Z56.9 Unspecified problems related to employment; Z73.9 Problem related to life management difficulty, unspecified; Z60.8 Other problems related to social environment; Z18.10 Retained metal fragments, unspecified
CPT/HCPCS: 00123; 80053; 80307; 96127; 99285; 73030; 80320; 85025

== ENCOUNTER 2024-06-17 18:02 | Emergency (ER) | payer MEDICAID, SELFPAY ==
[2024-06-17 18:05] VITALS: BP 130/88; PULSE 14; TEMP 36.7; O2SAT 95
--- NOTE | 2024-06-17 18:34 | ED.GENADUL_ITS ---
Discharge Plan Disposition Patient Disposition: Home Condition: Stable Discharge Details Clinical Impression: Encounter for laboratory test Primary Care Provider: Alonso Petty ED Provider: Aroldo Harris Home Meds and New Rx's Prescriptions: No Action methadone 10 MG/ML concentrate 255 mg PO DAILY Patient Comments: Pt states he takes 190 mg daily 02/19/24 multivitamin with folic acid [Daily-Nehemiah (with folic acid)] 400 mcg tablet 1 tab PO DAILY Patient Comments: take 1 tablet by mouth daily with food nicotine (polacrilex) 4 mg gum 4 mg PO Q2H PRN Patient Comments: CHEW 1 PIECE OF GUM EVERY 2 HOURS BY MOUTH FOR SMOKING CESSATION gabapentin 400 mg capsule 1,200 mg PO TID 5 Days Qty: 45 0RF sertraline 100 MG tablet 200 mg PO DAILY 5 Days Qty: 10 0RF clonazepam 1 mg tablet 1 mg PO TID 5 Days Qty: 15 0RF methylphenidate HCl 54 mg tablet extended release 24hr 54 mg PO BID 5 Days Qty: 10 0RF naproxen sodium 550 mg tablet 550 mg PO BID 5 Days Qty: 10 0RF lisinopril 10 mg tablet 10 mg PO DAILY 5 Days Qty: 5 0RF Discharge Instructions Additional Instructions: You were seen in the emergency department at the request of your primary care provider Dr. Petty for a blood draw, he has placed the orders for the labs, they should be available for results tomorrow, please return for any emergent concerns. Referrals: Alonso Petty [Primary Care Provider] - Discharge Data Discharge Date/Time-TO BE ENTERED AT DEPARTURE: 06/17/24 18:50 HPI General Date/Time Provider Initiated Documentation: 06/17/24 18:03 . HPI Narrative: 48 year-old male presents to ED today by POV/ambulating with a chief complaint of request for U/S guided blood draw from [facility] for pre-ordered labs. Quality described as no acute complaints, no radiation to chest pain, shortness of breath, fever. Severity is described as 0/10. Palliating factors include nothing specific. Provoking factors include nothing specific. Events leading up to the incident/Associated Symptoms: Patient has a history of being a hard stick. Patient not anticoagulated. Related Data Home Medications ?Medication ?Instructions ?Recorded ?Confirmed methadone 10 mg/mL oral concentrate 255 mg PO DAILY 11/11/14 06/17/24 multivitamin with folic acid 400 1 tab PO DAILY 04/26/24 06/17/24 mcg tablet (Daily-Nehemiah (with folic acid)) nicotine (polacrilex) 4 mg gum 4 mg PO Q2H PRN 04/26/24 06/17/24 clonazepam 1 mg tablet 1 mg PO TID 5 days #15 tabs 06/05/24 06/17/24 gabapentin 400 mg capsule 1,200 mg (3 x 400 mg) PO TID 5 06/05/24 06/17/24 days #45 caps lisinopril 10 mg tablet 10 mg PO DAILY 5 days #5 tabs 06/05/24 06/17/24 methylphenidate HCl 54 mg 54 mg PO BID 5 days #10 tabs 06/05/24 06/17/24 tablet,extended release 24 hr naproxen sodium 550 mg tablet 550 mg PO BID 5 days #10 tabs 06/05/24 06/17/24 sertraline 100 mg tablet 200 mg (2 x 100 mg) PO DAILY 5 06/05/24 06/17/24 days #10 tabs Previous Rx's ?Medication ?Instructions ?Recorded clonazepam 1 mg tablet 1 mg PO TID 5 days #15 tabs 06/05/24 gabapentin 400 mg capsule 1,200 mg (3 x 400 mg) PO TID 5 06/05/24 days #45 caps lisinopril 10 mg tablet 10 mg PO DAILY 5 days #5 tabs 06/05/24 methylphenidate HCl 54 mg 54 mg PO BID 5 days #10 tabs 06/05/24 tablet,extended release 24 hr naproxen sodium 550 mg tablet 550 mg PO BID 5 days #10 tabs 06/05/24 sertraline 100 mg tablet 200 mg (2 x 100 mg) PO DAILY 5 06/05/24 days #10 tabs Allergies Allergy/AdvReac Type Severity Reaction Status Date / Time No Known Allergies Allergy Unverified 06/17/24 18:09 General Stated Complaint: GenMedical SHAUNA: 4 Review of Systems All systems reviewed & are unremarkable except as noted in HPI and below Exam Narrative Exam Narrative: GENERAL APPEARANCE: Well-nourished, non-toxic, awake and alert, atraumatic, no acute distress. SKIN: Warm, pink, dry, intact, without rashes/lesions/ulcerations. HEAD: Normocephalic, atraumatic, normal hair distribution for gender/age. EYES: Normal conjunctiva, no exudates on lids/lashes. ENT: Nares patent, no circumoral cyanosis, no facial swelling NECK: Supple, trachea midline, painless cervical ROM. LUNGS/CHEST: Non-labored respirations, normal A/P diameter, symmetrical expansion, no chest wall deformity HEART (CV/PV): No peripheral edema, no JVD. ABDOMEN: Soft, non-distended, no guarding. MSK: Normal ROM, no swelling/deformity to bilateral UEs or LEs, moving all extremities without weakness, no cyanosis, spine midline without tenderness, normal curvature. NEURO: Mental Status AAOx4 - alert to person, place, time, events No facial droop, no forehead involvement. Motor: No focal weakness - strength 5/5 in bilateral UEs and LEs, proximal and distal, symmetric. Sensory: sensation intact to light touch globally. Gait normal: patient ambulated without ataxia into ED room. PSYCH: euthymic, cooperative, pleasant, appropriate speech Course Vital Signs Vital signs: Vital Signs Temperature 36.7 C 06/17/24 18:05 Pulse 14 L 06/17/24 18:05 Blood Pressure 130/88 06/17/24 18:05 Pulse Oximetry 95 06/17/24 18:05 Temperature 36.7 C 06/17/24 18:05 Temperature Source Oral 06/17/24 18:05 Pulse 14 L 06/17/24 18:05 Blood Pressure 130/88 06/17/24 18:05 Blood Pressure Position Sitting 06/17/24 18:05 Pulse Oximetry 95 06/17/24 18:05 Oxygen Delivery Method Room Air 06/17/24 18:05 Oxygen Flow Rate 0 06/17/24 18:05 Medical Decision Making This dictation utilizes [id number] dictation software and may contain unedited grammatical errors. 48 year-old male presents to ED today by POV/ambulating with a chief complaint of request for U/S guided blood draw from [facility] for pre-ordered labs. Quality described as no acute complaints, no radiation to chest pain, shortness of breath, fever. Severity is described as 0/10. Palliating factors include nothing specific. Provoking factors include nothing specific. Events leading up to the incident/Associated Symptoms: Patient has a history of being a hard stick. Patients' medical history: Polypharmacy, hepatitis C, polydrug abuse. Family and social history: Denies IVDU or EtOH. Pertinent exam findings / vital signs include benign cardiopulmonary status, resting comfortably, no acute distress. Differential / pathologies of concern include request for laboratory testing. Diagnostic studies of: -[facility] has preordered labs. Interventions of: -biomedical electronics technician draws blood without ultrasound. ED Course/Assessment/Plan: 48-year-old male presents for request from [facility] for laboratory blood draw with ultrasound guidance as the patient has history of polysubstance abuse and is a hard stick. He was drawn without ultrasound guidance by analytical lab analyst and labs are already ordered, no interventions required by ED, patient comfortable with following up with his primary care provider for result. Findings not consistent with acute complaint. Disposition of encounter for laboratory test. Patient verbalized understanding of the plan and return to ED criteria and engaged in shared decision making. Medical Records Medical records reviewed: Yes I reviewed the patient's medical records. Quality:SDOH Health Related Social Needs: Health related social needs material hardship(utilitie s) (Z59.12), problems related to housing/economic circumstances (Z59.89), problems finding work (Z56.9), problems with daily activities (Z73.9), feeling lonely/isolated (Z60.8) PFSH All Active Problems (Updated 06/17/24 @ 18:37 by JAYLEN Mullen) Encounter for laboratory test (Acute) Polypharmacy (Acute) Smoker (Chronic) Restless leg syndrome (Chronic) Urinary retention (Chronic) ADD (attention deficit disorder) (Chronic) Hepatitis C (Chronic) Polydrug abuse, continuous (Acute 07/22/14) Family History Mother Essential hypertension Father No problems noted. Brother Diabetes Essential hypertension Social History Smoking/Tobacco Use Status: Current every day Smoking risk assessment performed?: Yes Alcohol Intake: never Drug use: Daily Substance use type: sedatives and IV drugs Details: current use Housing: apartment Do you feel safe at home: Yes Do you feel safe in your relationship?: Yes
[2024-06-17 19:49] LABS: HCT 41.7 % (40.0-50.0); HGB 13.4 g/dL (13.5-17.5); MCH 29.4 pg (27.0-33.0); MCHC 32.1 % (32.0-36.0); MCV 91 fL (80-95); MPV 9.3 fL (8.0-11.0); Platelet Count 227 10^3/uL (130-400); RBC 4.56 10^6/uL (4.36-5.78); RDW 13.4 % (11.8-14.1); RDW-SD 45.5 fL; WBC 5.09 10^3/uL (4.4-10.8)
[2024-06-17 20:08] LABS: ALT 108 U/L (16-63); AST 130 U/L (15-37); Albumin 4.1 g/dL (3.4-5.0); Alkaline Phosphatase 127 U/L (46-116); Anion Gap 9.2 mmol/L (3-11); BUN 19 mg/dL (7-18); Bilirubin, Total 0.3 mg/dL (0.2-1.0); CO2 28.8 mmol/L (21.0-32.0); CREATININE 0.9 mg/dL (0.70-1.30); Calcium 9.2 mg/dL (8.5-10.1); Chloride 104 mmol/L (98-107); GGT 94 U/L (15-85); Glucose 59 mg/dL (74-106); Potassium 4.4 mmol/L (3.5-5.1); Sodium 142 mmol/L (136-145); TSH 30.26 uIU/mL (0.36-3.74); Total Protein 8.3 g/dL (6.4-8.2)
[2024-06-17 20:11] LABS: Hemoglobin A1C 5.4 % (<5.7)
[2024-06-17 20:24] LABS: Calculated LDL 103 mg/dL (<100); Cholesterol 197 mg/dL (<200); HDL Cholesterol 81 mg/dL (>or=40); Triglyceride 66 mg/dL (<150)
[2024-06-18 19:47] LABS: Hepatitis C Ab w Rflx HCV PCR Reactive (Negative)
[2024-06-19 13:47] LABS: HCV RNA Detection Quantitative 1500000 IU/mL (Undetected); HCV RNA Qualitative Detected (Undetected)
== END 2024-06-17 18:50 | disposition home or self-care (01) ==
PROVIDERS: Emergency Provider Physician Assistant; PCP Family Medicine
DX: Z01.89 Encounter for other specified special examinations (principal); B18.2 Chronic viral hepatitis C
CPT/HCPCS: 80053; 80061; 84403; 85027; 86803; 87522; 99282; 82977; 83036; 84443

== ENCOUNTER 2024-07-02 01:53 | Outpatient (CLI) | payer MEDICAID, SELFPAY ==
--- NOTE | 2024-07-02 | DI.US_ITS ---
Exam(s) US ABDOMEN LIMITED EXAM: US ABDOMEN LIMITED CLINICAL HISTORY: Chronic viral hepatitis C, B18.2; eval for cirrhosis/fibrosis TECHNIQUE: Ultrasound abdomen performed using standard protocol. COMPARISON: CT CT CHEST WO from 07/02/2024 FINDINGS: LIVER: 17 cm in length. Mild coarsening of the echotexture. No visible nodularity the liver surface . Normalechogenicity. No focal liver lesions are seen. GALLBLADDER: No evidence of cholelithiasis. No evidence of wall thickening. No pericholecystic fluid identified. DAS'S SIGN: Negative. BILIARY SYSTEM: No intrahepatic or extrahepatic biliary ductal dilation. RIGHT KIDNEY: Normal size. No evidence of renal calculi. No evidence of hydronephrosis. No suspicious renal mass. No cyst identified. PANCREAS: Normal where visualized. ABDOMINAL AORTA AND IVC: Visualized portions normal caliber. ASCITES: None seen. IMPRESSION: Mild coarsening of liver texture. No focal lesions. DATA REPOSITORY:
--- NOTE | 2024-07-02 | DI.RAD_ITS ---
Exam(s) XR THORACIC SPINE COMPLETE EXAM: XR THORACIC SPINE COMPLETE CLINICAL HISTORY: Degeneration of lumbar intervertebral disc, M51.369, wo mention of lumbar. TECHNIQUE: 2D digital imaging was performed. Three views. COMPARISON: CR CHEST 2 VIEWS PA,LAT from 03/31/[address] CHEST WO from 07/02/2024 FINDINGS: BONES: There is no fracture or destructive lesion. The vertebral bodies and posterior elements are un remarkable. Fusion hardware in lower cervical spine. ALIGNMENT: Marked kyphosis at the lower thoracic spine secondary to compression fracture. Mild levos coliosis. DISKS: Interverebral disc spaces are maintained. SOFT TISSUE: Visualized lungs show basilar atelectasis.. IMPRESSION: Severe kyphosis secondary to compression fracture at the lower aspect spine. DATA REPOSITORY: RADIATION DOSE DELIVERED:
--- NOTE | 2024-07-02 07:48 | DI.CT_ITS ---
Exam(s) CT CHEST WO EXAM: CT CHEST WO CLINICAL HISTORY: Solitary pulmonary nodule, R91.1; f/u 3 mm lung nodule on prior CT TECHNIQUE: Imaging Protocol: Axial computed tomography images with coronal and sagittal reformatted images were created and reviewed. Computer aided detection (CAD) was utilized. CONTRAST MATERIAL: Intravenous: Omnipaque 350 Contrast volume:structured data ml. COMPARISON: CR CHEST 2 VIEWS PA,LAT from 03/31/2011prior chest CT is not available for comparison . FINDINGS: Pulmonary parenchyma: Mild respiratory motion at the lung bases. Minimal scattered linear atelectasi s versus scarring. No consolidation. No dominant measurable mass. A calcified granuloma at left low er lobe. Tracheobronchial tree: No bronchiectasis or mucous plugging. Mediastinum and Marily: No dominant adenopathy or fluid collection. Pleura: No effusion. No pneumothorax. Heart: The heart is not dilated. No coronary artery calcifications are seen. Aorta: Thoracic aorta non-dilated. Mild atherosclerotic changes. Pulmonary arteries: No gross evidence of emboli. Upper abdomen: No acute findings. Bones: Marked focal kyphosis at the lower thoracic spine secondary to chronic appearing compression f ractures. The T11 vertebral body is severely compressed anteriorly. There is anterior wedging of th e inferior endplate of T 10 and mild anterior wedging of the T12 vertebral body. The also mild loss of height involving T7 through T9. Endplate osteophytes are present. There is a mild levoscoliosis. Soft tissues: Unremarkable. IMPRESSION: No acute abnormality. Chronic appearing thoracic compression fractures. No pulmonary nodules are identified. RADIATION DOSE DELIVERED: 213.05mGy.cm Total DLP DATA REPOSITORY: All CT scans at this facility are submitted to the National Radiology Data Registry (NRDR) Dose Index Registry (DIR) with the [employer] (A[employer]). RADIATION OPTIMIZATION: All CT scans at this facility use at least one of these dose optimization te chniques: automated exposure control; mA and/or kV adjustment per patient size (includes targeted exa ms where dose is matched to clinical indication); or iterative reconstruction.
== END 2024-07-02 02:13 ==
LOC: DI 01:53
PROVIDERS: PCP Family Medicine; Visit Provider Family Medicine
DX: R91.1 Solitary pulmonary nodule (principal); M51.369 Other intervertebral disc degeneration, lumbar region without mention of lumbar back pain or lower extremity pain; B18.2 Chronic viral hepatitis C
CPT/HCPCS: 71250; 72072; 76705